=== PATIENT | male | born 1935 | race Caucasian/White ===

== ENCOUNTER → 2017-02-28 | Outpatient (CLI) | payer BC ==
[2016-10-04 14:11] VITALS: BP 118/68; PULSE 72
[~2017-02-28] MED LIST: ASPI325T39 PO; ASPI81TA28 PO; ATOR-26 PO; CALC500C70 PO; COD1000C PO; COEN150C PO; ESCI10TA17 PO; FINA5TAB PO; LPR25 PO; LVNIS40 SQ; LVQ750 PO; MULT-506 PO; OMEG10007 PO; PRLSR20 PO; RXC5 PO; SENN8.6T7 PO; TAMS0.4C38 PO; TAMS0.4C59 PO; VITA400C15 PO; VITA400C3 PO; ZINC30TA3 PO; ZOLP1TAB PO
[2017-02-28 13:39] VITALS: BP_SYST 125; BP_SYST 159; BP_DIAS 73; BP_DIAS 78; PULSE 68; TEMP 36.9; O2SAT 94
--- NOTE | 2017-02-28 15:10 | Radiation Oncology Procedure ---
Radiation Oncology Procedure Date of Procedure February 28, 2017. Procedure Nasopharyngolaryngoscopy Pre & Post Diagnosis Pre Procedure Diagnosis: Head / Neck Cancer (S/p Treatment) Post Procedure Diagnosis: Head / Neck Cancer (S/p Treatment) Procedure Note Consent Obtained: Verbal Procedure Time Out: side/site verified, patient ID confirmed, appropriate equipment obtained Performed By: Dr. Kathy Eisenberg M.D. Reliability Manager(s): Marbella Jansen PA-C Medication(s): Afrin/Topical Lidocaine Clinical Focus of Exam: nasopharynx, oropharynx, larynx Findings: Normal nasal cavity & sinuses, Normal nasopharynx, Normal oropharynx , Normal larynx Estimated Blood Loss: none Specimens: none Complications: none Time Spent: 15 minutes
--- NOTE | 2017-02-28 15:59 | Radiation Oncology Follow-Up ---
Radiation Oncology Follow-Up Date of Visit February 28, 2017. 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 Ferreira is a 81-year-old male who noted a lump in his right neck in the fall of 2014. This was slightly tender and was followed by palpation for several weeks. He ultimately presented to his PCP, Dr. Collin Iniguez for evaluation. He was seen on 08/26/2015. A 3 cm firm mobile mass was noted in the mid right neck along the sternocleidomastoid. No other adenopathy was appreciated. Patient was started on antibiotics and a CT scan of the head and neck region was ordered. On 09/01/2015 the patient underwent a neck CT scan. This revealed a heterogeneous 2.1 x 1.7 cm lymph node that abuts the right internal carotid artery and right internal jugular vein. The vertebral and common carotid arteries are patent. A 40% stenosis at the right carotid bulb was noted due to the calcified plaque. There was severe/critical stenosis within the left carotid bulb demonstrating greater than 90% stenosis. The remainder of the exam was unremarkable. Dr. Iniguez sent the patient for evaluation of his carotid artery stenosis to see Dr. Franklyn olivarez on 09/07/2015. He recommended additional staging procedures as well as a biopsy of the right neck node. On 09/08/2015 patient underwent a CTA. This redemonstrated the severe/critical stenosis within the proximal left internal carotid artery. Approximate 30-40% stenosis was noted within the right proximal internal carotid artery. There was no change in the heterogeneous 2.1 cm right jugulodigastric lymph node noted. Patient was sent for an FNA of the palpable right neck mass. This was performed on 09/13/2015. The tissue identified necrosis and variably necrotic squamous cells, highly suspicious for metastatic squamous cell carcinoma. AP 16 immunostain performed on a cytospin shows weak nuclear and cytoplasmic staining. Case: [id number]. This tissue was ultimately reviewed at [facility]. They noted suboptimal evaluation to lack of lymph node sampling. Abundant anucleated squamous cells and atypical squamous cells were present. These were felt to be consistent with a squamous cell carcinoma. Accession #: [id number]. It was recommended the patient undergo a repeat cardiac catheterization. His previous catheterization was 2006. And he underwent a stress echocardiography on 09/22/2015. This was ultimately performed and reported no change from his previous study. Patient underwent a PET CT scan on 09/28/2015. Patient was seen by Dr. Edmonds and evaluated. He recommended treatment for the left internal carotid stenosis prior to additional discussion of surgical options. He was therefore scheduled for a left carotid endarterectomy on 2014. He recommended waiting approximately 2 weeks prior to performing the panendoscopy this is been scheduled for , 11/17/2015. In the interim patient was evaluated by Dr. Clifford, Radiation Oncology at [place]. It was noted that presently the patient had a head and neck cancer of unknown primary that was the 16th positive. He pointed out that a likely origin is the right base of tongue and right tonsil. He indicated that this issue should be resolved once he is undergone panendoscopy. He discussed at length the use of definitive chemoradiation reviewing with the patient the anticipated treatment duration as well as a detailed discussion of potential risks and side effects of combined chemoradiation. He did discuss with the patient treatment at [place] as well as the alternative of receiving his treatment locally in [place]. The patient returned to see Dr. Ferreira on October 18 and was recovering well from his left carotid endarterectomy. Patient underwent a repeat CT soft tissue neck on 10/31/2015. This again identified in the patient' s right palpable neck abnormality consistent with an enlarged right jugulodigastric lymph node measuring 1.7 cm. This remained unchanged in size compared to the recent PET/CT scan. Mild nonspecific soft tissue asymmetry was noted within the left oropharynx at the level of the uvula. No corresponding abnormalities were identified in the recent PET/CT scan. As noted above he was scheduled to see Dr. Edmonds on 11/17/2015. The plan was to treat with combined chemotherapy and radiation. The patient started his treatment on 12/06/2015 and completed treatment on 02/09/2016. He did develop dysphagia requiring fentanyl patch. This did help the pain but unfortunately caused excessive side effects and this was stopped. The patient did require multiple treatment interruptions including a 2 week break from 01/18 through 02/01/2016. Overall the patient received 33 fractions with a daily dose of 212 cGy per fraction for a total dose of 69.96 G (Marbella Jansen PA-C) Interim History He is been doing well over the past 5 months his appetite is good. He has had a 9 pound weight gain. He does describe occasional choking episodes. This is happened on 2 occasions. Once when eating peanuts. The second time was in the morning when he first woke up. He does have a lot of dry thick secretions in the morning. He is using an herbal spray before bed which helps with his xerostomia. He uses this if he wakes up. He continues to have issues with the submental edema. He had gone to the lymphedema therapy clinic. He is also seen a specialist and had steroid injections to the area. This is currently stable. In the morning he will have thick phlegm. At times this can be a very dark color. He has not seen any karolyn blood in the sputum. He had rechecked imaging with CT scan in October at [place]. This showed post radiation changes Carranza next with no evidence of recurrent or residual mass. No lymphadenopathy. Postsurgical changes of the right carotid endarterectomy. (Marbella Jansen PA-C) Allergies Coded Allergies: Morphine (Verified Adverse Reaction, Mild, HEADACHE, 03/22/16) Home Medications Scheduled Aspirin (Aspirin Ec), 81 MG PO QAM Atorvastatin (Lipitor), 80 MG PO QAM Calcium/Vitamin D (Os-Kd 500 Plus D), 1 TAB PO QAM Cod Liver Oil (Cod Liver Oil 1000 mg), 1 CAP PO QAM Coenzyme Q10 (Ubidecarenone) (Co Q-10), 150 MG PO QAM Escitalopram (Lexapro), 10 MG PO QAM Finasteride (Proscar), 5 MG PO HS Fish Oil ([place]-3), 1 CAP PO QAM Multivitamin (Multivitamin), 1 TAB PO QAM Tamsulosin Hcl (Flomax), 0.4 MG PO HS Tocopheryl Acet,Dl-Alpha (Vitamin E), 400 INTER.UNIT PO QAM Zinc Gluconate (Zinc), 3 MG PO QAM Zolpidem Tartrate (Ambien Er), 6.25 MG PO HS Review of Systems Gastrointestinal: Symptoms: WNL Oral: Symptoms: No Problems, Scant Saliva/Dry Mouth Other Oral Symptoms: Intermittent "sore" on inside of left cheek that resolves spontaneously Respiratory: Symptoms: Dry Cough, Productive Cough Urinary: Symptoms: WNL Comments: On Proscar and Flomax Skin: Symptoms: No Problems Other Skin Symptoms: Dry skin on right facial cheek (Marbella Jansen PA-C) Physical Exam Vital Signs Date Time Temp Pulse Resp B/P Pulse Ox O2 Delivery O2 Flow Rate FiO2 02/28/17 13:39 36.9 68 20 159/78 94 125/73 Pain: Patient Pain Scale: 0 - 10 Initial Pain Intensity: 0.0 Fatigue: None General Appearance: no apparent distress Eyes: normal inspection, EOMI ENT: normal ENT inspection, hearing grossly normal, pharynx normal (there are no visible or palpable lesions of the tongue, floor the mouth, or buccal mucosa. ) Neck: supple, no adenopathy, + pertinent finding (mild submental edema) Respiratory/Chest: lungs clear, no respiratory distress, no accessory muscle use Cardiovascular: regular rate, rhythm, no gallop, no murmur Neurologic/Psychiatric: no motor/sensory deficits, alert, normal mood/affect Skin: warm/dry Lymphatic: no adenopathy (Marbella Jansen PA-C) Additional Studies CT scan evaluation as reviewed above performed on 11/07/2016. (Marbella Jansen PA-C) Assessment & Plan Plan: The patient was also seen and examined by Dr. Eisenberg today. He underwent an NPL examination. Please see Dr. Eisenberg's procedure note. I did recommend humidification of the air in his bedroom to help with dryness of the mouth at night and to help thin secretions in the morning. He'll continue with his herbal mild spray which is helping with the xerostomia at night. He'll be seeing Dr. Edmonds 03/07/2017. He'll also be following up with the physician who has given him injections to the submental area. We asked him to return to our office in 6 months. He may call if he has any questions or concerns in the interim. Knee described choking sensation may be related to the phlegm that he experiences especially in the morning. With hydration and humidification hopefully this will improve. (Marbella Jansen PA-C) I agree with note created by Marbella Jansen PA-C. I reviewed the patient's chart and information with her. I have examined and evaluated the patient. I reviewed relevant clinical information and answered the patient's and/or family' s questions. (Veeral. Eisenberg MD) Total Time In Follow-Up I spent 25 minutes speaking to the patient and performing examination. I spent 15 minutes reviewing information and completing this note. AK (Marbella Jansen PA-C) I spent 15 minutes examining and counseling the patient. (Veeral. Eisenberg MD) Copy To Uday Edmonds M.D.; Collin Iniguez M.D.
== END | disposition home or self-care (01) ==
LOC: C.ONC 13:29
PROVIDERS: ATTEND Physician Assistant Medical
DX: Z08 Encounter for follow-up examination after completed treatment for malignant neoplasm (principal); Z92.3 Personal history of irradiation; Z85.810 Personal history of malignant neoplasm of tongue

== ENCOUNTER → 2017-09-05 | Outpatient (CLI) | payer BC ==
[~2017-09-05] MED LIST changes: -LPR25 PO; -LVNIS40 SQ; -LVQ750 PO; -RXC5 PO; -SENN8.6T7 PO
[2017-09-05 13:44] VITALS: BP 134/78; PULSE 64; TEMP 36.8; O2SAT 93
--- NOTE | 2017-09-05 15:10 | Radiation Oncology Follow-Up ---
Radiation Oncology Follow-Up Date of Visit Sep 05, 2017. 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 Ferreira noted a lump in his right neck in the fall of 2014. This was slightly tender and was followed by palpation for several weeks. He ultimately presented to his PCP, Dr. Collin Iniguez for evaluation. He was seen on 2014. A 3 cm firm mobile mass was noted in the mid right neck along the sternocleidomastoid. No other adenopathy was appreciated. Patient was started on antibiotics and a CT scan of the head and neck region was ordered. On 2014 the patient underwent a neck CT scan. This revealed a heterogeneous 2.1 x 1.7 cm lymph node that abuts the right internal carotid artery and right internal jugular vein. The vertebral and common carotid arteries are patent. A 40% stenosis at the right carotid bulb was noted due to the calcified plaque. There was severe/critical stenosis within the left carotid bulb demonstrating greater than 90% stenosis. The remainder of the exam was unremarkable. Dr. Iniguez sent the patient for evaluation of his carotid artery stenosis to see Dr. Franklyn olivarez on 09/07/2015. He recommended additional staging procedures as well as a biopsy of the right neck node. On 09/08/2015 patient underwent a CTA. This redemonstrated the severe/critical stenosis within the proximal left internal carotid artery. Approximate 30-40% stenosis was noted within the right proximal internal carotid artery. There was no change in the heterogeneous 2.1 cm right jugulodigastric lymph node noted. Patient was sent for an FNA of the palpable right neck mass. This was performed on 09/13/2015. The tissue identified necrosis and variably necrotic squamous cells, highly suspicious for metastatic squamous cell carcinoma. AP 16 immunostain performed on a cytospin shows weak nuclear and cytoplasmic staining. Case: [id number]. This tissue was ultimately reviewed at [facility]. They noted suboptimal evaluation to lack of lymph node sampling. Abundant anucleated squamous cells and atypical squamous cells were present. These were felt to be consistent with a squamous cell carcinoma. Accession #: [id number]. It was recommended the patient undergo a repeat cardiac catheterization. His previous catheterization was 2006. And he underwent a stress echocardiography on 09/22/2015. This was ultimately performed and reported no change from his previous study. Patient underwent a PET CT scan on 09/28/2015. Patient was seen by Dr. Edmonds and evaluated. He recommended treatment for the left internal carotid stenosis prior to additional discussion of surgical options. He was therefore scheduled for a left carotid endarterectomy on 2014. He recommended waiting approximately 2 weeks prior to performing the panendoscopy this is been scheduled for , 11/17/2015. In the interim patient was evaluated by Dr. Clifford, Radiation Oncology at [place]. It was noted that presently the patient had a head and neck cancer of unknown primary that was the 16th positive. He pointed out that a likely origin is the right base of tongue and right tonsil. He indicated that this issue should be resolved once he is undergone panendoscopy. He discussed at length the use of definitive chemoradiation reviewing with the patient the anticipated treatment duration as well as a detailed discussion of potential risks and side effects of combined chemoradiation. He did discuss with the patient treatment at [place] as well as the alternative of receiving his treatment locally in [place]. The patient returned to see Dr. Ferreira on October 18 and was recovering well from his left carotid endarterectomy. Patient underwent a repeat CT soft tissue neck on 10/31/2015. This again identified in the patient' s right palpable neck abnormality consistent with an enlarged right jugulodigastric lymph node measuring 1.7 cm. This remained unchanged in size compared to the recent PET/CT scan. Mild nonspecific soft tissue asymmetry was noted within the left oropharynx at the level of the uvula. No corresponding abnormalities were identified in the recent PET/CT scan. As noted above he was scheduled to see Dr. Edmonds on 11/17/2015. The plan was to treat with combined chemotherapy and radiation. The patient started his treatment on 12/06/2015 and completed treatment on 02/09/2016. He did develop dysphagia requiring fentanyl patch. This did help the pain but unfortunately caused excessive side effects and this was stopped. The patient did require multiple treatment interruptions including a 2 week break from 01/18 through 02/01/2016. Overall the patient received 33 fractions with a daily dose of 212 cGy per fraction for a total dose of 69.96 G Interim History He is been doing well over the past 6 months. 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 He has noted that his mouth feels dry or night if he has had wine with his dinner. Drinking fluid does help. At our last visit we discussed running a humidifier. He did try running a humidifier in his bedroom. This did not make much of a difference in the xerostomia. He has seen Dr. Edmonds in follow-up and had [facility] examination in May. There've been no signs of recurrence. He is now seen plastic surgeon in regards to the submental edema. Surgeon is planning steroid injections to the submental area to help decrease edema. There has been discussion of possible surgery. Surgeon is fearful of healing issues in this area. He has had some skin changes and did see a retail wireless sales representative. He did cryotherapy to a few lesions. He was found to have some carotid stenosis on his last CAT scan. This was approximate 50%. He will follow with vascular surgery. They have been following the carotid arteries. His taste is stable. His appetite is good and weight is stable. Allergies Coded Allergies: Morphine (Verified Adverse Reaction, Mild, HEADACHE, 03/22/16) Home Medications Scheduled Aspirin (Aspirin Ec), 81 MG PO QAM Atorvastatin (Lipitor), 80 MG PO QAM Calcium/Vitamin D (Os-Kd 500 Plus D), 1 TAB PO QAM Cod Liver Oil (Cod Liver Oil 1000 mg), 1 CAP PO QAM Coenzyme Q10 (Ubidecarenone) (Co Q-10), 150 MG PO QAM Escitalopram (Lexapro), 10 MG PO QAM Finasteride (Proscar), 5 MG PO HS Fish Oil ([place]-3), 1 CAP PO QAM Multivitamin (Multivitamin), 1 TAB PO QAM Tamsulosin Hcl (Flomax), 0.4 MG PO HS Tocopheryl Acet,Dl-Alpha (Vitamin E), 400 INTER.UNIT PO QAM Zinc Gluconate (Zinc), 3 MG PO QAM Scheduled PRN Zolpidem Tartrate (Ambien Er), 6.25 MG PO HS PRN for Sleep Review of Systems Gastrointestinal: Symptoms: WNL Oral: Symptoms: No Problems, Scant Saliva/Dry Mouth Other Oral Symptoms: Dry mouth/throat mostly when sleeping Respiratory: Symptoms: WNL Urinary: Symptoms: WNL Skin: Symptoms: No Problems Physical Exam Vital Signs Date Time Temp Pulse Resp B/P (MAP) Pulse Ox O2 Delivery O2 Flow Rate FiO2 09/05/17 13:44 36.8 64 16 134/78 93 Fatigue: None General Appearance: no apparent distress Eyes: normal inspection, EOMI ENT: normal ENT inspection, hearing grossly normal, TMs normal, pharynx normal , + pertinent finding (there are no visible or palpable lesions of the tongue, buccal mucosa, floor the mouth, soft or hard palate.) Neck: supple, no adenopathy, thyroid normal, + pertinent finding (noted submental edema.) Respiratory/Chest: lungs clear, no respiratory distress, no accessory muscle use Cardiovascular: regular rate, rhythm, no gallop, no murmur Extremities: no pedal edema Neurologic/Psychiatric: no motor/sensory deficits, alert, normal mood/affect Skin: warm/dry Lymphatic: no adenopathy Pain Management Pain Management Plan The patient is having no pain. Laboratory Studies No laboratory studies are required for review currently. Additional Studies He had a CT of the neck 05/13/2017. This showed stable minimal residual thickening is seen in the right oral pharyngeal wall including the tonsillar fossa from posttreatment changes. No evidence of residual or recurrent tumor. No pathologic lymphadenopathy. Right carotid bifurcation atherosclerosis with approximately 50% stenosis of the internal carotid artery Assessment & Plan Plan: Continue regular follow-up with Dr. Edmonds and Dr. Iniguez. Recheck scanning per Dr. Edmonds. He has had recent NPL examination and that was therefore deferred today. He is going to follow with the plastic surgeon in regards to the submental edema. He will have a follow-up with the vascular surgeon in regards to the carotid stenosis. He was not in favor of any further lymphedema therapy. We asked him to return to our office in 1 year. He may call if he has any questions or concerns in the interim. Total Time In Follow-Up I spent 20 minutes speaking to the patient performing examination. I spent 15 minutes reviewing information and completing this note. Copy To Oscar Soto M.D.
== END | disposition home or self-care (01) ==
LOC: C.ONC 13:33
PROVIDERS: ATTEND Physician Assistant Medical
DX: Z08 Encounter for follow-up examination after completed treatment for malignant neoplasm (principal); Z92.3 Personal history of irradiation; Z85.810 Personal history of malignant neoplasm of tongue

== ENCOUNTER 2017-09-21 14:56 | Inpatient (IN) | payer BC, OTHER ==
[~2017-09-21] VITALS: Ht 175.3 cm; Wt 84.5 kg
[~2017-09-21 14:56] MED LIST changes: -ASPI325T39 PO; -PRLSR20 PO; -TAMS0.4C38 PO; -VITA400C3 PO
[2017-09-21] MEDS ORDERED: ONDANSETRON INJ 2 MG/ML 2 ML VIAL IV STA (15:10)
[2017-09-21] MEDS ORDERED: MoRPHine SULFATE 4 MG/ML 1 ML CARP\\VIAL IV STA (15:10)
--- NOTE | 2017-09-21 15:19 | EMERGENCY ROOM VISIT NOTE ---
History Report prepared by Azul: Svetlana Stubbs Under the Supervision of: Dr. Darius Banegas M.D. First contact with patient: 14:57 Stated Complaint: FALL History of Present Illness The patient is an 82 year old white male with a past medical history of bladder cancer and hyperlipidemia who presents to the ED with a cc of an episode of a fall occurring an hour ago. The patient states that he was cleaning out his gutters when he fell 4 ft off the ladder and onto his concrete driveway. He reports that he landed on his right side and states that he thinks he bounced. The patient states that it feels like his right leg is missing. Positive taking Aspirin. Negative hitting head, LOC, neck pain, and use of other blood thinners. Source of History: patient Onset: an hour ago Position: other (global) Quality: other ("Right leg is missing") Timing: other (episode) Associated Symptoms: No LOC, No neck pain Note: The patient denies hitting his head. Review of Systems See HPI for pertinent positives and negatives. A total of ten systems were reviewed and were otherwise negative. Past Medical & Surgical Medical Problems: (1) Bladder cancer (2) Cancer of base of tongue (3) Sepsis (4) SIRS (systemic inflammatory response syndrome) (5) UTI (urinary tract infection) Family History Diabetes mellitus Hypertension Social History Smoking Status: Never Smoker Alcohol Use: none Drug Use: none Marital Status: Housing Status: lives with family Occupation Status: employed Current/Historical Medications Scheduled Atorvastatin (Lipitor), 80 MG PO QAM Calcium/Vitamin D (Os-Kd 500 Plus D), 1 TAB PO QAM Cod Liver Oil (Cod Liver Oil 1000 mg), 1 CAP PO QAM Coenzyme Q10 (Ubidecarenone) (Co Q-10), 150 MG PO QAM Escitalopram (Lexapro), 10 MG PO QAM Finasteride (Proscar), 5 MG PO HS Fish Oil ([place]-3), 1 CAP PO QAM Multivitamin (Multivitamin), 1 TAB PO QAM Tamsulosin Hcl (Flomax), 0.4 MG PO HS Vitamin E (Vitamin E 400 Iu), 400 INTER.UNIT PO DAILY Zinc Gluconate (Zinc), 3 MG PO QAM Scheduled PRN Aspirin (Aspirin Ec), 325 MG PO DAILY PRN for PRN Zolpidem Tartrate (Ambien Er), 6.25 MG PO HS PRN for Sleep Allergies Coded Allergies: Morphine (Verified Adverse Reaction, Mild, HEADACHE, 03/22/16) Physical Exam Vital Signs Date Time Temp Pulse Resp B/P (MAP) Pulse Ox O2 Delivery O2 Flow Rate FiO2 09/21/17 18:06 36.7 90 18 103/62 90 Room Air 09/21/17 17:21 87 20 154/78 95 Room Air 09/21/17 16:06 75 09/21/17 15:41 95 Room Air 09/21/17 15:41 36.7 71 18 157/88 95 Room Air 09/21/17 15:05 36.4 76 18 145/75 95 Room Air Physical Exam GENERAL: Awake, alert, well-appearing, NAD HENT: Normocephalic, atraumatic. NCAT for head. No facial pain. No bruising. EYES: Normal conjunctiva. Sclera non-icteric. NECK: Supple. No nuchal rigidity. FROM. No midline c spine tenderness. RESPIRATORY: CTAB, no rhonchi, wheezing, crackles CARDIAC: RRR, no MRG ABDOMEN: Soft, NTND, BS+ MSK: No chest wall TTP, no LE edema, no reproducible chest wall, back, abdomen, upper extremity, and left lower extremity deformity, pain or ecchymosis. Right lower extremity has obvious deformity and bulge of the proximal thigh with associated pain. NDI intact distally. SP/DP/Tib nerves. DP pulse present. NEURO: GCS 15, CN 2-12 intact, moves all 4s on command SKIN: No rash or jaundice noted. Medical Decision & Procedures ER Provider Diagnostic Interpretation: Radiology results as stated below per my review and radiologist interpretation: CHEST ONE VIEW PORTABLE HISTORY: 82 years-old Male Trauma acute chest trauma COMPARISON: Chest radiographs 05/08/2016 TECHNIQUE: Portable AP view of the chest FINDINGS: Cardiac silhouette is mildly enlarged, unchanged. Atherosclerosis of the aorta. No pneumothorax, pleural effusion, focal airspace consolidation or overt pulmonary edema. Bones of the chest appear grossly intact. No acute rib fracture identified. IMPRESSION: 1. No acute cardiopulmonary process. 2. No acute rib fracture identified. The above report was generated using voice recognition software. It may contain grammatical, syntax or spelling errors. Electronically signed by: Jun Rivas M.D. 09/21/2017 4:07 PM Dictated Date/Time: 09/21/2017 4:05 PM PELVIS 1 OR 2 VIEW ROUTINE, R FEMUR 2 VIEWS ROUTINE HISTORY: 82 years-old Male Fall, Hip pain acute right hip pain status post fall COMPARISON: Acute abdominal series radiographs 01/27/2016 TECHNIQUE: Single AP view the pelvis with 2 views of the right femur FINDINGS: PELVIS: Degenerative changes are seen within the lower lumbar spine, SI joints and pubic symphysis. Moderate degenerative changes of the bilateral femoral acetabular joints. Vascular calcifications noted. FEMUR: There is acute oblique fracture of the proximal subtrochanteric femur with possible subtle fractures also present within the greater trochanter. The lesser trochanter and intertrochanteric femur appear intact. Subtrochanteric fracture demonstrates mild apex medial angulation of 7 degrees, 1.8 cm lateral displacement and 2.5 cm foreshortening. Moderate associated soft tissue swelling. IMPRESSION: 1. Acute oblique mildly angulated, displaced and foreshortened subtrochanteric fracture of the right femur. On the AP view of the pelvis, there is questioned nondisplaced fracture of the right greater trochanter as well. 2. No acute pelvic ring fracture. The above report was generated using voice recognition software. It may contain grammatical, syntax or spelling errors. Electronically signed by: Jun Rivas M.D. 09/21/2017 3:56 PM Dictated Date/Time: 09/21/2017 3:52 PM Laboratory Results 09/21/17 15:10 Red Blood Count 4.49, Mean Corpuscular Volume 93.1, Mean Corpuscular Hemoglobin 32.1, Mean Corpuscular Hemoglobin Concent 34.4, Mean Platelet Volume 9.6, Neutrophils (%) (Auto) 67.8, Lymphocytes (%) (Auto) 18.6, Monocytes (%) (Auto) 10.2, Eosinophils (%) (Auto) 2.8, Basophils (%) (Auto) 0.2, Neutrophils # (Auto ) 3.38, Lymphocytes # (Auto) 0.93, Monocytes # (Auto) 0.51, Eosinophils # (Auto ) 0.14, Basophils # (Auto) 0.01 09/21/17 15:10 Test 09/21/17 15:10 09/21/17 15:40 White Blood Count 4.99 K/uL (4.8-10.8) Red Blood Count 4.49 M/uL (4.7-6.1) Hemoglobin 14.4 g/dL (14.0-18.0) Hematocrit 41.8 % (42-52) Mean Corpuscular Volume 93.1 fL (80-100) Mean Corpuscular Hemoglobin 32.1 pg (25-34) Mean Corpuscular Hemoglobin Concent 34.4 g/dl (32-36) Platelet Count 172 K/uL (130-400) Mean Platelet Volume 9.6 fL (7.4-10.4) Neutrophils (%) (Auto) 67.8 % Lymphocytes (%) (Auto) 18.6 % Monocytes (%) (Auto) 10.2 % Eosinophils (%) (Auto) 2.8 % Basophils (%) (Auto) 0.2 % Neutrophils # (Auto) 3.38 K/uL (1.4-6.5) Lymphocytes # (Auto) 0.93 K/uL (1.2-3.4) Monocytes # (Auto) 0.51 K/uL (0.11-0.59) Eosinophils # (Auto) 0.14 K/uL (0-0.5) Basophils # (Auto) 0.01 K/uL (0-0.2) RDW Standard Deviation 41.2 fL (36.4-46.3) RDW Coefficient of Variation 12.2 % (11.5-14.5) Immature Granulocyte % (Auto) 0.4 % Immature Granulocyte # (Auto) 0.02 K/uL (0.00-0.02) Anion Gap 7.0 mmol/L (3-11) Est Creatinine Clear Calc Drug Dose 65.1 ml/min Estimated GFR () 92.9 Estimated GFR (Non- 80.2 BUN/Creatinine Ratio 29.3 (10-20) Calcium Level 8.9 mg/dl (8.5-10.1) Prothrombin Time 11.0 SECONDS (9.0-12.0) Prothromb Time International Ratio 1.0 (0.9-1.1) Activated Partial Thromboplast Time 20.5 SECONDS (21.0-31.0) Partial Thromboplastin Ratio 0.8 Laboratory results reviewed by me Medications Administered Medications (Trade) Dose Ordered Sig/Dinah Route Start Time Stop Time Status Last Admin Dose Admin Ondansetron HCl (Zofran Inj) 4 mg NOW STAT IV 09/21/17 15:10 09/21/17 15:13 DC 09/21/17 15:40 4 MG Morphine Sulfate (MoRPHine SULFATE INJ) 4 mg NOW STAT IV 09/21/17 15:10 09/21/17 15:13 DC 09/21/17 15:40 4 MG Hydromorphone HCl (Dilaudid Inj) 1 mg NOW STAT IV 09/21/17 16:22 09/21/17 16:23 DC 09/21/17 16:39 1 MG Hydromorphone HCl (Dilaudid Inj) 1 mg NOW STAT IV 09/21/17 17:48 09/21/17 17:50 DC 09/21/17 18:03 1 MG Acetaminophen/ Hydrocodone Bitart (Wiggins 10/325 Tab) 1 tab ONE STAT PO 09/21/17 17:48 09/21/17 17:50 DC 09/21/17 18:02 1 TAB Tramadol HCl (Ultram Tab) 25 mg NOW STAT PO 09/21/17 17:48 09/21/17 17:50 DC 09/21/17 18:02 25 MG ECG Indication: other (fall) Rate (beats per minute): 70 Rhythm: normal sinus Findings: T-wave inversion (lateral and highlateral leads), other (normal axis , normal intervals, no other STS or TWI) Comparison ECG Date: January 22, 2016 Change: T wave inversions are new. ED Course 1504: The patient was evaluated in room B12B. A complete history and physical exam was performed. 1556: I reevaluated the patient and he is doing well. 1627: Discussed the patient's case with Dr. Pichardo - Orthopedics. He states that the patient should be admitted to medicine and then he will operate tomorrow. 1643: Discussed the patient's case with Dr. Silvestre. The patient will be evaluated for further treatment and disposition. 1731: I reevaluated the patient and he is still in pain. Medical Decision The patient is an 82 year old white male with a past medical history of bladder cancer and hyperlipidemia who presents to the ED with a cc of an episode of a fall occurring an hour ago. Etiologies such as fracture, dislocation, neurovascular compromise, compartment syndrome, soft tissue injury, as well as others were entertained. Patient was seen and evaluated the bedside. Patient states that occasionally will take a full aspirin but does not take 1-2 days. Patient was up on a ladder approximate 2-3 feet trying to clean his gutters when he fell off and landed on his right side. Patient has complaints of some right lower extremity pain. Patient is notably shortened externally rotated. He is an obvious deformity of the proximal thigh. This is likely femur fracture. Consideration is a possible dislocation. Patient last ate around noon. Patient has a closed injury is otherwise neuro intact distally. DP pulses present. Patient does not have any headache neck pain chest abdomen back or other extremity pain. Patient is no other obvious signs of trauma. Patient did have blood work, EKG, coags, and plain films completed. Patient's blood work fairly unremarkable. Patient's EKG did show T-wave inversions in the lateral and high lateral leads. These are new compared to old EKG. Patient denies CP or SOB. Patient's plain films do show that the patient is have a subtrochanteric oblique fracture with some mild shortening. I did talk with the on-call orthopedist stated he would likely perform operative fixation tomorrow. Patient was made nothing by mouth at midnight. Patient was given pain medications. I did discuss case with the hospitalist agreed to admit the patient. Medication Reconcilliation Current Medication List: was personally reviewed by me Blood Pressure Screening Patient's blood pressure: Elevated blood pressure Blood pressure disposition: Elevated BP felt to be situational Consults Time Called: 1625 Consulting Physician: Dr. Marino Flores Orthopedicrocky Returned Call: 1626 Discussed the patient's case with Dr. Marino Stiles. He states that the patient should be admitted to medicine and then he will operate tomorrow. Additional Consults: Time Called: 1635 Consulted Physician: Dr. Silvestre Returned Call: [phone] Additional Comments: Discussed the patient's case with Dr. Silvestre. The patient will be evaluated for further treatment and disposition. Impression Primary Impression: Fall Additional Impressions: Femur fracture, right Nonspecific ST-T wave electrocardiographic changes Scribe Attestation The scribe's documentation has been prepared under my direction and personally reviewed by me in its entirety. I confirm that the note above accurately reflects all work, treatment, procedures, and medical decision making performed by me. Departure Information Dispostion Being Evaluated By Hospitalist Referrals Collin Iniguez M.D. (PCP) Problem Qualifiers Primary Impression: Fall Encounter type: initial encounter Qualified Codes: W19.XXXA - Unspecified fall, initial encounter Additional Impressions: Femur fracture, right Encounter type: initial encounter Femur location: subtrochanteric Fracture type: closed Fracture alignment: displaced Qualified Codes: S72.21XA - Displaced subtrochanteric fracture of right femur, initial encounter for closed fracture
[2017-09-21 15:22] LABS: BASO % 0.2 %; BASO ABS # 0.01 K/uL (0-0.2); COMPLETE YES; EOS % 2.8 %; HEMATOCRIT 41.8 % (42-52); IG% 0.4 %; LYMPH % 18.6 %; LYMPH ABS # 0.93 K/uL (1.2-3.4); MEAN CELL VOLUME 93.1 fL (80-100); MEAN CORPUSCULAR HEMOGLOBIN 32.1 pg (25-34); MEAN CORPUSCULAR HGB CONC 34.4 g/dl (32-36); MEAN PLATELET VOLUME 9.6 fL (7.4-10.4); MONO % 10.2 %; NEUT % 67.8 %; PLATELET COUNT 172 K/uL (130-400); RED BLOOD COUNT 4.49 M/uL (4.7-6.1); WHITE BLOOD COUNT 4.99 K/uL (4.8-10.8)
[2017-09-21 15:41] LABS: BUN/CREATININE RATIO 29.3 (10-20); CALCIUM 8.9 mg/dl (8.5-10.1); CREATININE 0.89 mg/dl (0.60-1.40); POTASSIUM 3.9 mmol/L (3.5-5.1)
--- NOTE | 2017-09-21 15:58 | DIAGNOSTIC IMAGING REPORT ---
PELVIS 1 OR 2 VIEW ROUTINE, R FEMUR 2 VIEWS ROUTINE HISTORY: 82 years-old Male Fall, Hip pain acute right hip pain status post fall COMPARISON: Acute abdominal series radiographs 01/27/2016 TECHNIQUE: Single AP view the pelvis with 2 views of the right femur FINDINGS: PELVIS: Degenerative changes are seen within the lower lumbar spine, SI joints and pubic symphysis. Moderate degenerative changes of the bilateral femoral acetabular joints. Vascular calcifications noted. FEMUR: There is acute oblique fracture of the proximal subtrochanteric femur with possible subtle fractures also present within the greater trochanter. The lesser trochanter and intertrochanteric femur appear intact. Subtrochanteric fracture demonstrates mild apex medial angulation of 7 degrees, 1.8 cm lateral displacement and 2.5 cm foreshortening. Moderate associated soft tissue swelling. IMPRESSION: 1. Acute oblique mildly angulated, displaced and foreshortened subtrochanteric fracture of the right femur. On the AP view of the pelvis, there is questioned nondisplaced fracture of the right greater trochanter as well. 2. No acute pelvic ring fracture. The above report was generated using voice recognition software. It may contain grammatical, syntax or spelling errors. Electronically signed by: Jun Rivas M.D. 09/21/2017 3:56 PM Dictated Date/Time: 09/21/2017 3:52 PM
--- NOTE | 2017-09-21 16:08 | DIAGNOSTIC IMAGING REPORT ---
CHEST ONE VIEW PORTABLE HISTORY: 82 years-old Male Trauma acute chest trauma COMPARISON: Chest radiographs 05/08/2016 TECHNIQUE: Portable AP view of the chest FINDINGS: Cardiac silhouette is mildly enlarged, unchanged. Atherosclerosis of the aorta. No pneumothorax, pleural effusion, focal airspace consolidation or overt pulmonary edema. Bones of the chest appear grossly intact. No acute rib fracture identified. IMPRESSION: 1. No acute cardiopulmonary process. 2. No acute rib fracture identified. The above report was generated using voice recognition software. It may contain grammatical, syntax or spelling errors. Electronically signed by: Jun Rivas M.D. 09/21/2017 4:07 PM Dictated Date/Time: 09/21/2017 4:05 PM
[2017-09-21] MEDS ORDERED: HYDROmorphone INJ 1 MG/ML SYR IV STA ×2 (16:22→17:48)
[2017-09-21 16:41] LABS: PARTIAL THROMBOPLASTIN RATIO 0.8
[2017-09-21] MEDS ORDERED: TAMS0.4C38 PO (16:44)
[2017-09-21] MEDS ORDERED: VITA400C3 PO (16:44)
[2017-09-21] MEDS ORDERED: ASPI325T39 PO (16:46)
[2017-09-21] MEDS ORDERED: TRAMADOL HCL 50 MG TAB PO STA (17:48)
[2017-09-21] MEDS ORDERED: HYDROCODONE/ACETAMI 10/325 TAB PO STA (17:48)
[2017-09-21] MEDS ORDERED: BISACODYL 10 MG SUPP PR PRN (19:45)
[2017-09-21] MEDS ORDERED: NALOXONE HCL 0.4 MG/1 ML VIAL/CARP IV PRN (19:45)
[2017-09-21] MEDS ORDERED: OXYCODONE HCL IR 5 MG TAB (IMMEDIATE RELEASE) PO PRN ×2 (19:45)
[2017-09-21] MEDS ORDERED: SOD PHOSPHATE/SOD BIPHOSPHATE ENEMA 132 ML BTL PR PRN (19:45)
[2017-09-21] MEDS ORDERED: MAGNESIUM HYDROXIDE SUSP 30 ML UDC PO PRN ×2 (19:45→20:00)
[2017-09-21] MEDS ORDERED: HYDROmorphone INJ 0.5 MG/0.5 ML SYR IV PRN (19:45)
[2017-09-21] MEDS ORDERED: POLYETHYLENE (MIRALAX) 17 GM PACK PO PRN ×2 (19:45→21:15)
[2017-09-21] MEDS ORDERED: ZOLPIDEM TARTRATE 6.25 MG PO PRN (20:00)
[2017-09-21] MEDS ORDERED: ONDANSETRON INJ 2 MG/ML 2 ML VIAL IV PRN (20:00)
[2017-09-21] MEDS ORDERED: ALUMINUM/MAGNESIUM/SIMETH (MAALOX MAX) 30 ML UDC PO PRN (20:00)
[2017-09-21 20:50] VITALS: BP 154/70; TEMP 36.8; Ht 175.3 cm; Wt 84.5 kg
[2017-09-21 20:53] VITALS: BP 154/70; PULSE 73; TEMP 36.8; O2SAT 94
--- NOTE | 2017-09-21 21:04 | History and Physical ---
History & Physical Date & Time of Service: Sep 21, 2017 at 21:04 Chief Complaint: Fracture Of Right Hip Requiring Operative Repair Primary Care Physician: Collin Iniguez M.D. History of Present Illness Source: patient, family, hospital records This is an 82 yo m with a history of KS/ CAD/ BPH that is presenting to us after a fall and suffering from a right hip fracture. The patient was working on a 6 foot ladder when he lost balance and fell from approx 3 feet. He landed on his right side and unsure if his elbow or his hip had hit first. The patient states that he immediately had 10/10 non radiating pain in his right hip and was unable to ambulate or move his left secondary to pain. He was evaluated in the ED and found to have an acute oblique mildly angulated, displaced and foreshortened subtrochanteric fracture of the right femur. Ortho was consult and plan for surgery in the am. The patient does have a history of KS and patient was to undergo a carotid endarterectomy in Sep 2016. Prior to this procedure the patient underwent a cardiac cath in [place] and was cleared for surgery. 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 Status post left carotid endarterectomy Status post biopsy of the base of the tongue revealing squamous cell carcinoma 11/17/2015 T2 N1 M0 Status post completion of combined radiation and chemotherapy Radiation completed 02/09/2016 received 6996 cGy Status: Resolved Family History Diabetes mellitus Hypertension Social History Smoking Status: Never Smoker Smokeless Tobacco Use: No Alcohol Use: none Drug Use: none Marital Status: Housing status: lives with significant other Occupational Status: employed Immunizations History of Influenza Vaccine: Yes Influenza Vaccine Date: Jul 21, 2015 History of Tetanus Vaccine?: Yes Tetanus Immunization Date: Jun 06, 2011 History of Pneumococcal: Yes Pneumococcal Date: Oct 21, 2014 History of Hepatitis B Vaccine: Unknown Multi-Drug Resistant Organisms History of MDRO: No Allergies Coded Allergies: Morphine (Verified Adverse Reaction, Mild, HEADACHE, 03/22/16) Home Medications Scheduled Atorvastatin (Lipitor), 80 MG PO QAM Calcium/Vitamin D (Os-Kd 500 Plus D), 1 TAB PO QAM Cod Liver Oil (Cod Liver Oil 1000 mg), 1 CAP PO QAM Coenzyme Q10 (Ubidecarenone) (Co Q-10), 150 MG PO QAM Escitalopram (Lexapro), 10 MG PO QAM Finasteride (Proscar), 5 MG PO HS Fish Oil (Elcho-3), 1 CAP PO QAM Multivitamin (Multivitamin), 1 TAB PO QAM Tamsulosin Hcl (Flomax), 0.4 MG PO HS Vitamin E (Vitamin E 400 Iu), 400 INTER.UNIT PO DAILY Zinc Gluconate (Zinc), 3 MG PO QAM Scheduled PRN Aspirin (Aspirin Ec), 325 MG PO DAILY PRN for PRN Zolpidem Tartrate (Ambien Er), 6.25 MG PO HS PRN for Sleep Review of Systems Constitutional: No fever, No chills, No sweats, No weight loss, No weakness Eyes: No worsening of vision ENT: No hearing loss Respiratory: No cough, No sputum, No wheezing, No shortness of breath, No dyspnea on exertion, No dyspnea at rest Cardiovascular: No chest pain Abdomen: No pain, No nausea, No vomiting, No diarrhea, No constipation Musculoskeletal: + joint pain, + muscle pain, + swelling Genitourinary - Male: No hematuria, No dysuria Neurologic: + balance problems, No weakness, No numbness/tingling Psychiatric: No depression symptoms Endocrine: No fatigue Integumentary: No rash Physical Exam Vital Signs Date Time Temp Pulse Resp B/P (MAP) Pulse Ox O2 Delivery O2 Flow Rate FiO2 09/21/17 20:53 36.8 73 17 154/70 (98) 94 Room Air 09/21/17 20:17 89 18 101/67 95 09/21/17 20:11 89 18 101/67 95 Room Air 09/21/17 18:06 36.7 90 18 103/62 90 Room Air 09/21/17 17:21 87 20 154/78 95 Room Air 12/2/17 16:06 75 09/21/17 15:41 95 Room Air 09/21/17 15:41 36.7 71 18 157/88 95 Room Air 09/21/17 15:05 36.4 76 18 145/75 95 Room Air General Appearance: no apparent distress Head: normocephalic, atraumatic Eyes: normal inspection ENT: normal ENT inspection Neck: supple Respiratory/Chest: normal breath sounds, no respiratory distress, no accessory muscle use Cardiovascular: regular rate, rhythm, no murmur, normal peripheral pulses Abdomen/GI: normal bowel sounds, non tender, soft Back: normal inspection, no CVA tenderness Extremities/Musculoskelatal: no calf tenderness, no pedal edema, normal range of motion, + pertinent finding (neurovascularly intact LE, visible deformity on the right hip without noteable ecchymosis or erythema , right leg is externally rotated) Neurologic/Psych: alert, normal mood/affect, oriented x 3 Skin: normal color, warm/dry, no rash Lymphatic: no adenopathy Diagnostics Laboratory Results Results Past 24 Hours Test 09/21/17 15:10 09/21/17 15:40 Range/Units White Blood Count 4.99 4.8-10.8 K/uL Red Blood Count 4.49 4.7-6.1 M/uL Hemoglobin 14.4 14.0-18.0 g/dL Hematocrit 41.8 42-52 % Mean Corpuscular Volume 93.1 80-100 fL Mean Corpuscular Hemoglobin 32.1 25-34 pg Mean Corpuscular Hemoglobin Concent 34.4 32-36 g/dl Platelet Count 172 130-400 K/uL Mean Platelet Volume 9.6 7.4-10.4 fL Neutrophils (%) (Auto) 67.8 % Lymphocytes (%) (Auto) 18.6 % Monocytes (%) (Auto) 10.2 % Eosinophils (%) (Auto) 2.8 % Basophils (%) (Auto) 0.2 % Neutrophils # (Auto) 3.38 1.4-6.5 K/uL Lymphocytes # (Auto) 0.93 1.2-3.4 K/uL Monocytes # (Auto) 0.51 0.11-0.59 K/uL Eosinophils # (Auto) 0.14 0-0.5 K/uL Basophils # (Auto) 0.01 0-0.2 K/uL RDW Standard Deviation 41.2 36.4-46.3 fL RDW Coefficient of Variation 12.2 11.5-14.5 % Immature Granulocyte % (Auto) 0.4 % Immature Granulocyte # (Auto) 0.02 0.00-0.02 K/uL Sodium Level 138 136-145 mmol/L Potassium Level 3.9 3.5-5.1 mmol/L Chloride Level 103 98-107 mmol/L Carbon Dioxide Level 28 21-32 mmol/L Anion Gap 7.0 3-11 mmol/L Blood Urea Nitrogen 26 7-18 mg/dl Creatinine 0.89 0.60-1.40 mg/dl Est Creatinine Clear Calc Drug Dose 65.1 ml/min Estimated GFR () 92.9 Estimated GFR (Non- 80.2 BUN/Creatinine Ratio 29.3 10-20 Random Glucose 148 70-99 mg/dl Calcium Level 8.9 8.5-10.1 mg/dl Prothrombin Time 11.0 9.0-12.0 SECONDS Prothromb Time International Ratio 1.0 0.9-1.1 Activated Partial Thromboplast Time 20.5 21.0-31.0 SECONDS Partial Thromboplastin Ratio 0.8 Microbiology Results 09/21/17 MRSA DNA Surveillance Screen, Received Pending Diagnostic Radiology CHEST ONE VIEW PORTABLE HISTORY: 82 years-old Male Trauma acute chest trauma COMPARISON: Chest radiographs 05/08/2016 TECHNIQUE: Portable AP view of the chest FINDINGS: Cardiac silhouette is mildly enlarged, unchanged. Atherosclerosis of the aorta. No pneumothorax, pleural effusion, focal airspace consolidation or overt pulmonary edema. Bones of the chest appear grossly intact. No acute rib fracture identified. IMPRESSION: 1. No acute cardiopulmonary process. 2. No acute rib fracture identified. PELVIS 1 OR 2 VIEW ROUTINE, R FEMUR 2 VIEWS ROUTINE HISTORY: 82 years-old Male Fall, Hip pain acute right hip pain status post fall COMPARISON: Acute abdominal series radiographs 01/27/2016 TECHNIQUE: Single AP view the pelvis with 2 views of the right femur FINDINGS: PELVIS: Degenerative changes are seen within the lower lumbar spine, SI joints and pubic symphysis. Moderate degenerative changes of the bilateral femoral acetabular joints. Vascular calcifications noted. FEMUR: There is acute oblique fracture of the proximal subtrochanteric femur with possible subtle fractures also present within the greater trochanter. The lesser trochanter and intertrochanteric femur appear intact. Subtrochanteric fracture demonstrates mild apex medial angulation of 7 degrees, 1.8 cm lateral displacement and 2.5 cm foreshortening. Moderate associated soft tissue swelling. IMPRESSION: 1. Acute oblique mildly angulated, displaced and foreshortened subtrochanteric fracture of the right femur. On the AP view of the pelvis, there is questioned nondisplaced fracture of the right greater trochanter as well. 2. No acute pelvic ring fracture. Impression Assessment and Plan This is an 82 yo m with a history of KS/ CAD that is suffering from a right hip fracture Right subtrochanteric hip fracture - admission to med surg - ortho is consulted - RCRI is 0.9% and patient had had a cardiac cath in < 5 years. patient is an acceptable risk for surgery - pain control with oxycodone for PO and Dilaudid for IV option - IV NSS @ 75cc/h - NPO except meds CAD/ [place] / Hyperlipidemia - continue Atorvastatin 80 mg daily BPH - continue Flomax 0.4 mg Depression - continue lexapro 10 mg DVT Prophylaxis scd Attending Addendum: I have physically seen and examined this patient, have directed the resident's medical activities, and agree with the H&P as noted above with the following exceptions as noted. The patient is awake, alert and oriented 3, well-developed and well-nourished , normocephalic and atraumatic, lying in bed and in no acute distress. HEENT--PERRL, EOMI, mucous membranes and oropharynx normal. Neck--supple, no JVD or bruits, thyroid normal, trachea midline, no adenopathy. Heart--normal S1 and S2, no extra beats, no murmurs, rubs or gallops. Lungs--clear bilaterally with good air movement, no respiratory distress, no accessory muscle use. Abdomen--normal bowel sounds and soft, nontender and nondistended, no hernias or masses, no organomegaly. Extremities--no cyanosis, clubbing or edema. There are good distal pulses b/l. Dermatologic--normal skin turgor, normal color, warm and dry, no abnormal lymph nodes, no rash. Neurologic--cranial nerves II through XII grossly intact. Rheumatologic--right hip pain reproducible Psychiatric--normal affect. Assessment and Plan: Subtrochanteric right hip fracture-- Admitted to medical surgical floor Nothing by mouth NSS at 75 ML's per hour Morphine IV for pain when necessary Orthopedic consult Acceptable risk for surgery CAD/KS/hyperlipidemia-- Continue atorvastatin 80 mg by mouth daily. Hold fish oil. BPH-- Continue Flomax 0.4 mg by mouth at bedtime and finasteride 5 mg by mouth daily Depression-- Continue Lexapro 10 mg daily Level of Care Med/Surg Advanced Directives Existing Advance Directive: No Existing Living Will: No Existing Power of Painter Decorator: No Resuscitation Status FULL RESUSCITATION VTE Prophylaxis VTE Risk Assessment Done? Y/N: Yes Risk Level: Moderate Given or contraindicated: SCD's Social Service Consult None Apply Note Total Time: Critical Care 30 - 74 minutes Additional Copies To Myles Iniguez M.D.
[2017-09-21] MEDS: TAMSULOSIN HCL 0.4 MG CAP PO SCH (21:57)
[2017-09-21] MEDS: FINASTERIDE 5 MG TAB PO SCH (21:57)
[2017-09-21] MEDS: DOCUSATE SODIUM/SENNA 50/8.6MG TAB PO SCH (21:58)
[2017-09-21] MEDS: SODIUM CHLORIDE 0.9% 1000ML 1,000 ML IV SCH (21:59)
[2017-09-21] MEDS: HYDROmorphone INJ 0.5 MG/0.5 ML SYR IV PRN (22:06)
--- NOTE | 2017-09-21 22:41 | ORTHOPEDIC CONSULTATION ---
DATE OF CONSULTATION: 09/21/2017 CHIEF COMPLAINT: Right subtrochanteric hip fracture. HISTORY OF PRESENT ILLNESS: Dm is a pleasant 82-year-old male who lives in a house with his . He is a community ambulator without assistance. He was up on a ladder cleaning his gutters with a blower. He then fell off the ladder directly on to his right hip. He had immediate pain. He was brought to the Emergency Room where radiographs demonstrated a subtrochanteric fracture of the right hip. He was admitted to the medical service and orthopedics was consulted for evaluation and definitive treatment. PAST MEDICAL HISTORY: Significant for bladder cancer, history of cancer of the base of the tongue, hyperlipidemia. MEDICATIONS: Include Lipitor 80 mg daily, Lexapro 10 mg daily, Proscar 5 mg at night, Flomax 0.4 mg daily, [id number] supplements, aspirin 325 mg daily as needed and Ambien 6.25 mg as needed for sleep. FAMILY HISTORY: Significant for diabetes, hypertension. SOCIAL HISTORY: He is and lives with his family. He is currently employed. REVIEW OF SYSTEMS: He complains of right hip pain. All other pertinent review of systems are negative. PHYSICAL EXAMINATION: GENERAL: He is awake, alert and oriented x3. He is in no apparent distress. HEENT: Pupils are equal, round and reactive to light. Extraocular motion intact. Oral mucosa is pink and moist. HEART: Regular rate per radial pulse. LUNGS: Keeley symmetrically bilaterally with no audible breath sounds. ABDOMEN: Soft, nontender, nondistended. MUSCULOSKELETAL: On physical examination of the right leg, he is sitting with his hip flexed to 20 degrees and his knee flexed at 30 degrees. He is externally rotated. He has active dorsiflexion and plantarflexion of his right ankle. Sensation is intact throughout. He has a lot of pain with log roll of the right leg. There is a gross deformity at the proximal femur. There is no punctured of the skin. IMAGING: X-rays of the right proximal femur do show a subtrochanteric right femur fracture, it is a long oblique fracture with moderate displacement. IMPRESSION: Displaced subtrochanteric femur fracture. PLAN: He is being admitted to the hospitalist service. If he is medically stable, I would like to take him to the operating room tomorrow for intramedullary nail fixation. I did discuss this with him and his at bedside and he would like to proceed. We will await medical clearance and then likely proceed tomorrow. He should be n.p.o. past midnight tonight.
[2017-09-21 23:04] VITALS: BP 127/72; PULSE 89; TEMP 36.6; O2SAT 93
[2017-09-22] VITALS (11 sets, daily range): BP systolic 99–130; BP diastolic 60–74; PULSE 69–103; TEMP 36.9–37.4; O2SAT 76–97
[2017-09-22] MEDS: ZOLPIDEM TARTRATE 5 MG TAB PO PRN
[2017-09-22] MEDS: HYDROmorphone INJ 0.5 MG/0.5 ML SYR IV PRN ×6 (05:37→10:35)
[2017-09-22] MEDS ORDERED: CEFAZOLIN IV 2,000 MG in DEXTROSE 5% 50ML 50 ML IV SCH (06:00)
[2017-09-22] MEDS ORDERED: CEFAZOLIN 2000MG IV PUSH 10 ML IV SCH (06:00)
[2017-09-22] MEDS ORDERED: COD LIVER OIL PO SCH (09:00)
[2017-09-22] MEDS: MULTIVITAMIN TAB PO SCH ×2 (09:00→11:45)
[2017-09-22] MEDS: CALCIUM 600MG + VIT D 400 IU TAB PO SCH ×2 (09:00→11:41)
[2017-09-22] MEDS ORDERED: COENZYME Q10 150 MG PO SCH (09:00)
[2017-09-22] MEDS: ESCITALOPRAM OXALATE 10 MG TAB PO SCH ×2 (09:00→11:44)
[2017-09-22] MEDS: TOCOPHERYL, DL-ALPHA 400 INTER.UNIT CAP PO SCH ×2 (09:00→11:41)
[2017-09-22] MEDS: ATORVASTATIN 40 MG TAB PO SCH ×2 (09:00→11:42)
[2017-09-22] MEDS ORDERED: ZINC GLUCONATE PO SCH (09:00)
[2017-09-22] MEDS ORDERED: OMEGA-3 (PURIFIED FISH OIL) 1 GM CAP PO SCH (09:00)
[2017-09-22 09:03] LABS: BUN/CREATININE RATIO 36.4 (10-20); CALCIUM 8.8 mg/dl (8.5-10.1); CREATININE 0.85 mg/dl (0.60-1.40); MAGNESIUM 1.7 mg/dl (1.8-2.4); POTASSIUM 4.3 mmol/L (3.5-5.1)
[2017-09-22 09:11] LABS: CKMB/CK RATIO 1.9 (0-3.0)
[2017-09-22] MEDS: SODIUM CHLORIDE 0.9% 1000ML 1,000 ML IV SCH ×2 (09:27→23:36)
[2017-09-22 09:46] LABS: URINE APPEARANCE CLEAR (CLEAR); URINE BILIRUBIN NEG (NEG); URINE COLOR YELLOW; URINE NITRITE NEG (NEG); URINE SPECIFIC GRAVITY 1.024 (1.000-1.030); UROBILINOGEN NEG (NEG)
[2017-09-22 09:50] LABS: MANUAL MICROSCOPIC REQUIRED? NO; REVIEW REQ? NO
[2017-09-22] MEDS ORDERED: MAGNESIUM SULFATE 1GM / D5W 1 GM in PREMIXED IN D5W 100 ML IV STA (10:00)
[2017-09-22] MEDS ORDERED: PRLSR20 PO (10:47)
--- NOTE | 2017-09-22 10:59 | Anesthesiology Progress Note ---
Anesthesia Progress Note Date of Service Sep 22, 2017. Progress Notes The patient is an 82 y/o male with a R hip fracture. The patient fell while outside using a leaf blower. He had no syncope or loss of consciousness. The patient was to have a R IM angélica placed today, but due to concerning EKG changes of possible inferior infarct and elevated cardiac enzymes, Dr. Garcia would like to further evaluate the patient overnight prior to clearing him for surgery. The patient has PMH of [place], CAD, dyslipidemia, PVD s/p L CEA, bladder cancer, and tongue cancer. The patient states that he has no chest pain or SOB and is normally walks outside, although he has a had a cough for the past few days. His CXR shows NAD. EKG shows NSR with LVH and pronounced depression in the anterolateral leads. His echo from 2015 shows EF 65% with mild LVH and mod MR. Cardiac cath from 2014 showed multivessel disease with 100% occlusion of the RCA. Labs are significant for Troponin 0.111 and CKMB 6.3 from this morning. Further cardiac enzymes are pending. On exam the patient has a MP 2 airway with TMD 3 FB. Lungs are clear. Heart is RRR. He has a left neck scar but carotids are negative for bruits. Dr. Garcia will talk to the patient about further cardiac testing.
[2017-09-22] MEDS ORDERED: NURSING VERBAL MED ORDER ONE (11:00)
[2017-09-22] MEDS ORDERED: PANTOprazole SOD 40 MG TAB PO STA (11:26)
[2017-09-22] MEDS: HYDROmorphone HCL 0.5MG/ML 50 ML CASSETTE IV PRN ×3 (11:57→23:04)
--- NOTE | 2017-09-22 13:44 | Cardiology Consultation ---
Cardiology Consultation Date of Service Sep 22, 2017. Cardiology Consultation CARDIOLOGY CONSULTATION DATE OF CONSULTATION: September 22, 2017 REFERRING PHYSICIAN: Alexis Tafoya MD PRIMARY ANIMAL HUSBANDRY TECHNICIAN: Matthew Medeiros DO REASON FOR CONSULT: Preop evaluation/elevated troponin/abnormal ECG HISTORY OF PRESENT ILLNESS: 82-year-old man with history of CAD (borderline left disease/occluded right, details below) who had a mechanical fall today and sustained right hip fracture for which operative repair is planned. 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 He denies chest pain at any time. No loss of consciousness at the time of his fall. He was minimally hypertensive without tachycardia on admission. ECGs yesterday and today showed LVH with repolarization abnormalities, however there was some new ST depression noted today. A troponin today was mildly elevated (0.111). Of note, he was found to have an elevated troponin last year in December when he was admitted with pneumonia, this was felt to be due to supply/demand mismatch at that time. His only complaint currently is severe hip pain if he attempts to move, at rest he is comfortable. CURRENT MEDICATIONS: Vitamin D Senokot Proscar Flomax Cefazolin Atorvastatin Caltrate Lexapro Multivitamins Protonix ALLERGIES: Mild adverse reaction to morphine (headache). PAST MEDICAL HISTORY: CAD, catheterization 2014 with 30 % left main, 40 % proximal LAD, occluded RCA, nondominant circumflex, left to right collaterals. Carotid stenosis, status post left endarterectomy with no significant disease on bilateral carotid Doppler 2015. Difficulty hearing Dyslipidemia Hypertension Hyperglycemia Nephrolithiasis, status post percutaneous nephrostomy Squamous cell cancer of the tongue, status post chemo/radiation PAST SURGICAL HISTORY: Prostate biopsy Cystoscopy Prostate surgery Tonsillectomy SOCIAL HISTORY: Former smoker, quit in 1982. 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 and accompanied by his . FAMILY HISTORY: Adopted, family history not obtained. REVIEW OF SYSTEMS: He notes a head cold for the past week, cough rarely productive of whitish sputum. Nasal discharge. No fever or chills. No chest pain. No dyspnea. PHYSICAL EXAMINATION: No distress. Vitals: Afebrile. BP 125/68, pulse 96 regular, respirations 16 and unlabored. Skin: No unusual lesions or ecchymosis. HEENT: Unremarkable. Neck: Jugular venous pulse at the clavicle at 90, bilateral transmitted murmur versus carotid bruits. Lungs: Clear and equal breath sounds bilaterally. No wheezing or crackles. Cardiac: Regular rhythm with normal S1 and intact aortic closure sound, 2/6 right upper sternal border systolic ejection murmur radiating to the carotids, no diastolic murmur or gallop. Abdomen: Benign. Extremities: Marked pain with any movement of his right hip, no edema, intact peripheral pulses. Neurologic: Normal affect, nonfocal DATA: ECG on admission showed sinus rhythm with LVH and repolarization abnormalities, nondiagnostic inferior Q-waves. Compared to 2016 ECG, there is T-wave inversion now evident in the anterolateral leads. ECG today was similar with the exception of new ST depression in the anterolateral leads (2 mm horizontal to slightly downsloping depression in the context of marked LVH). Chest x-ray showed no acute process. Echocardiogram today showed normal left ventricular size and systolic function with no regional wall motion abnormalities. There is moderate LVH with diastolic dysfunction and mild mitral and tricuspid regurgitation with normal right ventricular systolic pressure. Compared with study from 1 year ago, no significant change. As noted, troponin was 0.111. CK was 326 but with a negative MB ratio. Electrolytes are normal with BUN 31, creatinine 0.85, glucose 130. Normal CBC. Normal coagulation studies. IMPRESSION: 1. Asymptomatic elevation of troponin with abnormal ECG, likely supply/demand mismatch in the context of known coronary artery disease. 2. Coronary artery disease, occluded right/borderline left disease on catheterization 2015. 3. Acute right hip fracture, operative repair planned. 4. History of carotid disease, no remaining significant stenoses after left endarterectomy. 5. History of hypertension, normotensive currently. 6. Good functional status prior to recent fall. DISCUSSION: Although the patient had a very good functional status and physically active lifestyle prior to his fall, dynamic ECG changes and troponin elevation were noted just prior to planned operative repair of his hip fracture resulting in delay of surgery to further assess his cardiac status. Fortunately, reviewing his record, it is quite likely that his coronary anatomy is such that the increased physiologic stress of his hip fracture (no doubt associated with transient hypertension/tachycardia at the time of his fall) resulted in supply/ demand mismatch with mild troponin elevation (similar to that which occurred at the time of pneumonia in December of 2015). The complete absence of pre and post fall chest symptoms is reassuring, as is his unremarkable echocardiogram. However, do feel it would be prudent to observe overnight with serial troponins and a follow-up ECG to ensure that there is not a progressive cardiac process occurring. Meanwhile, he is mildly tachycardic currently, would recommend initiation of low -dose beta-sony (he had not been initiated as an outpatient due to relatively low routine blood pressure and history of lightheadedness in the past ). He takes aspirin 325 mg roughly every other day (last taken yesterday). Would not restart today given risk of increased bleeding at the fracture site, but would ensure that aspirin is restarted postoperatively as long-term anti- platelet agent for his coronary artery disease. Thank you for this interesting consultation. Dr. Medeiros, his primary spindle tester, will likely assume care tomorrow (please call me if he is not available, ).
--- NOTE | 2017-09-22 14:02 | ECHOCARDIOGRAM REPORT ---
*NOTICE TO RECEIVING REPUBLICAN AGENCY This information is strictly Confidential and protected under [place] law. [place] law prohibits you from making any further disclosure of this information unless further disclosure is expressly permitted by the written consent of the person to whom it pertains or is authorized by law. A general authorization for the release of medical or other information is not sufficient for this purpose. Hospital accepts no responsibility if the information is made available to any other person, INCLUDING THE PATIENT. Interpretation Summary * Name: LILY SALAS Study Date: 09/22/2017 12:43 PM BP: 125/68 mmHg * Patient Location: .3E\S\E319\S\1 HR: 96 * : 1935 (M/d/yyy) Gender: Male Height: 69 in * Age: 82 yrs Ethnicity: [place] Weight: 186 lb * Ordering Physician: Alexis Tafoya * Performed By: Cara Ornelas RDCS * * Reason For Study: PRE-OP, ELEVATED TROP, H/O CAD * BSA: 2.0 m2 * -- Conclusions -- * Compared with 01/04/16 study, no significant change. * The left ventricle is normal in size. * Left ventricular systolic function is normal. * Ejection Fraction = 60-65%. * The left ventricular wall motion is normal. * There is moderate concentric left ventricular hypertrophy. * Grade I diastolic dysfunction, (abnormal relaxation pattern). * There is mild mitral regurgitation. * The left atrium is mildly dilated. * There is mild tricuspid regurgitation. * Right ventricular systolic pressure is normal. Procedure Details * A complete two-dimensional transthoracic echocardiogram was performed (2D, M-mode, Doppler and color flow Doppler). Left Ventricle * The left ventricle is normal in size. * There is moderate concentric left ventricular hypertrophy. * Ejection Fraction = 60-65%. * Left ventricular systolic function is normal. * The left ventricular wall motion is normal. Right Ventricle * The right ventricle is normal in size and function. Atria * The left atrium is mildly dilated. * Right atrial size is normal. * The interatrial septum is intact with no evidence for an atrial septal defect. Mitral Valve * The mitral valve leaflets appear thickened, but open well. * There is mild mitral regurgitation. Tricuspid Valve * The tricuspid valve is normal in structure and function. * There is mild tricuspid regurgitation. * Right ventricular systolic pressure is normal. Aortic Valve * Aortic valve sclerosis moderate, without significant aortic valvular stenosis. * Mild aortic regurgitation. Pulmonic Valve * The pulmonic valve is not well seen, but is grossly normal. * Trace pulmonic valvular regurgitation. Great Vessels * Aortic arch of normal dimension. * No obvious dissection could be visualized. Pericardium/Pleural * There is no pericardial effusion. Great Vessels * Normal inferior vena cava diameter and respiratory variation suggests normal central venous pressure. Left Ventricular Diastolic Function * Grade I diastolic dysfunction, (abnormal relaxation pattern). MMode 2D Measurements and Calculations IVSd 1.4 cm IVSs 2.0 cm LVIDd 4.2 cm LVIDs 2.9 cm LVPWd 1.1 cm LVPWs 1.7 cm IVS/LVPW 1.3 FS 32.3 % EDV(Teich) 79.1 ml ESV(Teich) 31.0 ml EF(Teich) 60.9 % EDV(cubed) 74.8 ml ESV(cubed) 23.2 ml EF(cubed) 68.9 % % IVS thick 42.5 % % LVPW thick 51.9 % LV mass(C)d 196.9 grams LV mass(C)dI 98.3 grams/m\S\2 LV mass(C)s 221.3 grams LV mass(C)sI 110.5 grams/m\S\2 SV(Teich) 48.2 ml SI(Teich) 24.1 ml/m\S\2 SV(cubed) 51.5 ml SI(cubed) 25.7 ml/m\S\2 ACS 0.90 cm LA dimension 3.8 cm asc Aorta Diam 3.4 cm LVOT diam 1.9 cm LVOT area 2.8 cm\S\2 LVAd ap4 27.6 cm\S\2 LVLd ap4 8.3 cm EDV(MOD-sp4) 77.5 ml EDV(sp4-el) 78.0 ml LVAs ap4 16.1 cm\S\2 LVLs ap4 7.6 cm ESV(MOD-sp4) 30.6 ml ESV(sp4-el) 29.0 ml EF(MOD-sp4) 60.5 % EF(sp4-el) 62.8 % LVAd ap2 31.5 cm\S\2 LVLd ap2 9.0 cm EDV(MOD-sp2) 92.1 ml EDV(sp2-el) 93.4 ml LVAs ap2 17.1 cm\S\2 LVLs ap2 7.6 cm ESV(MOD-sp2) 33.8 ml ESV(sp2-el) 32.6 ml EF(MOD-sp2) 63.3 % EF(sp2-el) 65.1 % LVLd %diff 8.1 % EDV(MOD-bp) 87.4 ml LVLs %diff -0.14 % ESV(MOD-bp) 32.1 ml EF(MOD-bp) 63.3 % SV(MOD-sp4) 46.9 ml SI(MOD-sp4) 23.4 ml/m\S\2 SV(MOD-sp2) 58.3 ml SI(MOD-sp2) 29.1 ml/m\S\2 SV(MOD-bp) 55.3 ml SI(MOD-bp) 27.6 ml/m\S\2 SV(sp4-el) 49.0 ml SI(sp4-el) 24.5 ml/m\S\2 SV(sp2-el) 60.8 ml SI(sp2-el) 30.3 ml/m\S\2 Doppler Measurements and Calculations MV E max hillary 64.3 cm/sec MV A max hillary 80.2 cm/sec MV E/A 0.80 MV dec time 0.25 sec Ao V2 max 161.6 cm/sec Ao max PG 10.4 mmHg Ao max PG (full) 3.4 mmHg CYNDI(V,A) 2.3 cm\S\2 CYNDI(V,D) 2.3 cm\S\2 LV V1 max PG 7.0 mmHg LV V1 max 132.4 cm/sec MR max hillary 416.3 cm/sec MR max PG 69.3 mmHg PA V2 max 100.3 cm/sec PA max PG 4.0 mmHg TR max hillary 266.6 cm/sec
[2017-09-22] MEDS ORDERED: METOPROLOL TARTRATE 25 MG TAB PO ONE (15:15)
[2017-09-22 15:31] LABS: CKMB/CK RATIO 1.5 (0-3.0)
[2017-09-22] MEDS: FINASTERIDE 5 MG TAB PO SCH (20:41)
[2017-09-22] MEDS: DOCUSATE SODIUM/SENNA 50/8.6MG TAB PO SCH (20:41)
[2017-09-22] MEDS: METOPROLOL TARTRATE 25 MG TAB PO SCH (20:42)
[2017-09-22] MEDS: TAMSULOSIN HCL 0.4 MG CAP PO SCH (20:42)
--- NOTE | 2017-09-22 22:18 | Progress Note ---
Subjective Date of Service: Sep 22, 2017. Subjective Pt evaluation today including: conversation w/ patient, physical exam, chart review, lab review, review of studies (echo, cxr, etc), conversation w/ platform consultant (orthopedics, cardiology, anesthesiology), review of inpatient medication list Pain: right hip; no chest pain PO Intake: npo for ?surgery Voiding: albright catheter in place patient required copious amounts of IV dilaudid this am to remain comfortable he reports he sees Dr. Matthew Medeiros at [facility] cardiology - last visit about 6 months ago patient denies any recent chest pain (exertional or otherwise), dyspnea, orthopnea, extreme fatigue cath report from 2014 from [place] reviewed he also mentions he has had a cough/cold for about 7 days, but it is "getting better" Problem List Medical Problems: (1) Cough Status: Acute (2) Elevated troponin Status: Acute (3) Epistaxis Status: Acute (4) Fall Status: Acute (5) Febrile neutropenia Status: Acute (6) Femur fracture, right Status: Acute (7) Nonspecific ST-T wave electrocardiographic changes Status: Acute (8) Pneumonia Status: Acute (9) Rigors Status: Acute (10) Throat cancer Status: Acute Review of Systems Constitutional: No fever Respiratory: No shortness of breath, No dyspnea on exertion Cardiac: No chest pain, No orthopnea, No PND, No edema Abdomen: No pain Objective Vital Signs Date Time Temp Pulse Resp B/P (MAP) Pulse Ox O2 Delivery O2 Flow Rate FiO2 09/22/17 16:15 37.4 72 16 112/66 (81) 96 Humidified Oxygen 4.0 09/22/17 15:35 71 128/74 (92) 09/22/17 15:30 36.9 69 16 106/65 (79) 97 Humidified Oxygen 09/22/17 15:25 Nasal Cannula 4.0 Humidified Oxygen 09/22/17 14:05 76 20 99/61 (74) 95 09/22/17 13:51 81 16 130/60 (83) 93 Humidified Oxygen 4.0 09/22/17 08:05 96 96 Nasal Cannula 4.0 Humidified Oxygen 09/22/17 07:59 99 90 Nasal Cannula 2.0 09/22/17 07:50 103 76 Room Air 09/22/17 07:13 37.1 97 16 125/68 (87) 90 Room Air 12/2/17 23:45 Room Air 09/21/17 23:04 36.6 89 16 127/72 (90) 93 Room Air 09/21/17 20:53 36.8 73 17 154/70 (98) 94 Room Air 09/21/17 20:50 36.8 17 154/70 Room Air 09/21/17 20:17 89 18 101/67 95 09/21/17 20:11 89 18 101/67 95 Room Air Physical Exam General Appearance: no apparent distress ENT: pharynx normal Neck: no JVD Respiratory/Chest: lungs clear, no respiratory distress, no accessory muscle use Cardiovascular: regular rate, rhythm, no gallop, + systolic murmur (1-2/6 RUSB) Abdomen: normal bowel sounds, non tender, soft, no organomegaly Extremities: + pertinent finding (right leg externally rotated and shorter than the left leg; pulses 2+ b/l; no edema) Neurologic/Psychiatric: alert, oriented x 3 Laboratory Results Last 24 Hours Test 09/22/17 08:04 09/22/17 09:00 09/22/17 14:31 Sodium Level 138 mmol/L Potassium Level 4.3 mmol/L Chloride Level 103 mmol/L Carbon Dioxide Level 30 mmol/L Anion Gap 4.0 mmol/L Blood Urea Nitrogen 31 mg/dl Creatinine 0.85 mg/dl Est Creatinine Clear Calc Drug Dose 26.3 ml/min Estimated GFR () 94.7 Estimated GFR (Non- 81.7 BUN/Creatinine Ratio 36.4 Random Glucose 130 mg/dl Calcium Level 8.8 mg/dl Magnesium Level 1.7 mg/dl Total Creatine Kinase 326 U/L 353 U/L Creatine Kinase MB 6.3 ng/ml 5.3 ng/ml Creatine Kinase MB Ratio 1.9 1.5 Troponin I 0.111 ng/ml 0.364 ng/ml Urine Color YELLOW Urine Appearance CLEAR Urine pH 5.0 Urine Specific [place] 1.024 Urine Protein 2+ Urine Glucose (UA) NEG Urine Ketones TRACE Urine Occult Blood 2+ Urine Nitrite NEG Urine Bilirubin NEG Urine Urobilinogen NEG Urine Leukocyte Esterase MODERATE Urine WBC (Auto) 10-30 /hpf Urine RBC (Auto) 5-10 /hpf Urine Hyaline Casts (Auto) 5-10 /lpf Urine Epithelial Cells (Auto) 10-20 /lpf Urine Bacteria (Auto) NEG Assessment and Plan 82yo male: 1. right hip fracture - ortho consult appreciated. Cardiac risk is at least moderate given his known CAD, EKG changes, etc (see below). DVT proph per orthopedics. Plan - observe overnight due to EKG changes/troponin elevation; await echo. NPO after MN tonight for probable ORIF tomorrow. 2. CAD with prior PA - now with marked ST segment depressions I/AVL and V4-V6. His troponin is mildly positive as well. Spoke with Dr. Garcia from cardiology who feels that we should run serial enzymes today, obtain echo, and repeat his EKG tonight and/or in the AM. I feel that is best as well. This may simply represent myocardial demand ischemia in the setting of #1 above. 3. BPH - continue dual therapy. 4. FEN - continue IVF, NPO after MN tonight, lytes in the AM. 5. hyperlipidemia - continue statin. 6. pain control - may need to consider MAR[employer]ER. 7. h/o bladder ca & cancer of the tongue - noted. 8. recent URI - no evidence of lower respiratory tract infection on cxr or exam. Monitor. 9. DVT proph - defer to orthopedics. 10. hypomagnesemia - replace IV, repeat level in AM. 11. c/o rigors - check u/a and urine cx, r/o UTI. If any worsening in pulmonary status then repeat CXR in the AM. If any temp spike - blood cx's X 2 sets. Continued [facility] stay due to: inadequate oral pain control, ambulation difficulties, multiple IV medications needed Discharge planning: uncertain
[2017-09-23] VITALS (10 sets, daily range): BP systolic 92–147; BP diastolic 55–71; PULSE 65–81; TEMP 36.3–37.1; O2SAT 95–97
[2017-09-23 04:54] LABS: BUN/CREATININE RATIO 36.5 (10-20); CALCIUM 8.3 mg/dl (8.5-10.1); CREATININE 0.8 mg/dl (0.60-1.40); MAGNESIUM 1.9 mg/dl (1.8-2.4); POTASSIUM 4.4 mmol/L (3.5-5.1)
[2017-09-23 05:03] LABS: HEMATOCRIT 32.1 % (42-52); MEAN CORPUSCULAR HEMOGLOBIN 30.8 pg (25-34); MEAN CORPUSCULAR HGB CONC 32.4 g/dl (32-36); MEAN PLATELET VOLUME 9.4 fL (7.4-10.4); PLATELET COUNT 153 K/uL (130-400); RED BLOOD COUNT 3.38 M/uL (4.7-6.1); WHITE BLOOD COUNT 7.32 K/uL (4.8-10.8)
[2017-09-23] MEDS ORDERED: CEFAZOLIN 2000MG IV PUSH 10 ML IV SCH (06:00)
[2017-09-23] MEDS ORDERED: BUPIVACAINE 0.5 % 5 MG/1 ML PF 10ML VIAL ONE ×2 (06:50→19:11)
[2017-09-23] MEDS: HYDROmorphone HCL 0.5MG/ML 50 ML CASSETTE IV PRN ×4 (06:56→23:01)
--- NOTE | 2017-09-23 07:10 | PROGRESS NOTE ---
DATE: 09/22/2017 CHIEF COMPLAINT: Left subtrochanteric hip fracture. PROGRESS: Dm was seen and examined at bedside today. Overall, he is doing fairly well. He was a little bit hypoxic earlier and I placed him on 4 liters of humidified air. It seems to help him out a lot. Medicine is aware. He was unable to get any sleep last night. He says as long as he does not move his right hip, he is not painful, but as soon as he moves even a little bit, he has severe pain. He is looking forward to getting his leg fixed. PHYSICAL EXAMINATION: RIGHT LEG: There are no abrasions, lesions, or lacerations of the skin. He is sitting with his right leg shortened and externally rotated. There is gross deformity of the proximal femur. He has active dorsiflexion and plantarflexion of the right ankle. LABORATORIES: Done this morning, he does have a troponin of 0.11 and the medicine team is aware of that. His vital signs are stable and he is satting at 96% as long as he has been on 4 liters of nasal cannula. Without the nasal cannula, he is around 90%-93%. IMPRESSION: Right subtrochanteric hip fracture. PLAN: I did discuss this with Dr. Tafoya. He is going to currently look at him for his lungs and his troponin levels. I would like to fix his hip today if we can. I think by stabilizing the fracture, he will be able to sit up more at bedside, even some in the chair and might help some of his symptoms. We will make sure he is safe for surgery. He is currently n.p.o. and we would like to fix it later today.
[2017-09-23] MEDS: MULTIVITAMIN TAB PO SCH (08:33)
[2017-09-23] MEDS: ATORVASTATIN 40 MG TAB PO SCH (08:33)
[2017-09-23] MEDS: CALCIUM 600MG + VIT D 400 IU TAB PO SCH (08:33)
[2017-09-23] MEDS: TOCOPHERYL, DL-ALPHA 400 INTER.UNIT CAP PO SCH (08:33)
[2017-09-23] MEDS: PANTOprazole SOD 40 MG TAB PO SCH (08:33)
[2017-09-23] MEDS: ESCITALOPRAM OXALATE 10 MG TAB PO SCH (08:33)
[2017-09-23] MEDS: METOPROLOL TARTRATE 25 MG TAB PO SCH ×2 (09:00→22:42)
--- NOTE | 2017-09-23 10:26 | Cardiology Follow-Up ---
Subjective General Date of Service: Sep 23, 2017. Pt evaluation today including: conversation w/ patient, chart review, lab review, review of studies, conversation w/ sales development consultant History of Present Illness The patient is a 82 year old male with right hip fx Allergies Coded Allergies: Morphine (Verified Adverse Reaction, Mild, HEADACHE, 03/22/16) Social History Smoking Status: Never Smoker Hx Tobacco Use In Past Year?: No Hx Alcohol Use - Type And Amou: Yes (Wine) Hx Substance Use - Type And Am: No Problem List Medical Problems: (1) Cough Status: Acute (2) Elevated troponin Status: Acute (3) Epistaxis Status: Acute (4) Fall Status: Acute (5) Febrile neutropenia Status: Acute (6) Femur fracture, right Status: Acute (7) Nonspecific ST-T wave electrocardiographic changes Status: Acute (8) Pneumonia Status: Acute (9) Rigors Status: Acute (10) Throat cancer Status: Acute Review of Systems Respiratory: + cough, No shortness of breath, No dyspnea on exertion, No dyspnea at rest Cardiac: No chest pain, No edema, No palpitations Physical Exam Vital Signs Last Vital Signs Documentation Date Time Temp Pulse Resp B/P (MAP) Pulse Ox O2 Delivery O2 Flow Rate FiO2 09/23/17 10:07 92/55 (67) 09/23/17 07:47 97 Nasal Cannula 4.0 09/23/17 07:30 36.8 65 18 Physical Exam Constitutional: General Apperance: heathly-appearing Level of Distress: mild distress, acutely ill Lungs: Respiratory effort: no dyspnea Auscultation: breath sounds normal, no wheezing, no rales/crackles, no rhonchi Cardiovascular: Heart Auscultation: RRR, no murmurs, no rubs, no gallops Peripheral Pulses: Carotid Pulse: normal on the left, normal on the right Abdomen: Bowel Sounds: normal Inspection & Palpation: soft, non-distended, no tenderness, guarding & rebound Extremities: no varicosities Assessment and Plan Assessment and Plan IMPRESSION: 1. Asymptomatic elevation of troponin with abnormal ECG, likely supply/demand mismatch in the context of known coronary artery disease. 2. Coronary artery disease, occluded right/borderline left disease on catheterization 2015. 3. Acute right hip fracture secondary to a Fall ( no palps and NO LOC) , operative repair planned. 4. History of carotid disease, no remaining significant stenoses after left endarterectomy. 5. History of hypertension 6. Good functional status prior to recent fall--20K steps, using push mower, climbing stairs without angina 7. Anemia/Acute blood loss--? all in Hip I reviewed Echo (normal LV fxn and no RWMA) and serial EKG's EKG with ST depression on admission and now with T wave inversions across precordial leads with no anginal symptoms (known LVH) Troponin minimally elevated and trending down. One would expect with a large area of anterior ischemia his troponin would be much higher and he would have an anterior wall motion abnormality by echo He needs to have this sx. Significant hip pain uncontrolled by STATISTICAL MACHINE MECH[employer]IC pump. excessive bleeding into hip Continue BB Monitor closely after SX Keep HGB >9 D/w Dr Garcia at the bedside Laboratory Results Last 24 Hours Test 09/22/17 14:31 09/22/17 20:50 09/23/17 04:21 Total Creatine Kinase 353 U/L Creatine Kinase MB 5.3 ng/ml Creatine Kinase MB Ratio 1.5 Troponin I 0.364 ng/ml 0.355 ng/ml 0.300 ng/ml White Blood Count 7.32 K/uL Red Blood Count 3.38 M/uL Hemoglobin 10.4 g/dL Hematocrit 32.1 % Mean Corpuscular Volume 95.0 fL Mean Corpuscular Hemoglobin 30.8 pg Mean Corpuscular Hemoglobin Concent 32.4 g/dl RDW Standard Deviation 41.5 fL RDW Coefficient of Variation 12.2 % Platelet Count 153 K/uL Mean Platelet Volume 9.4 fL Sodium Level 137 mmol/L Potassium Level 4.4 mmol/L Chloride Level 104 mmol/L Carbon Dioxide Level 30 mmol/L Anion Gap 3.0 mmol/L Blood Urea Nitrogen 29 mg/dl Creatinine 0.80 mg/dl Est Creatinine Clear Calc Drug Dose 72.5 ml/min Estimated GFR () 97.1 Estimated GFR (Non- 83.8 BUN/Creatinine Ratio 36.5 Random Glucose 146 mg/dl Calcium Level 8.3 mg/dl Magnesium Level 1.9 mg/dl
--- NOTE | 2017-09-23 10:40 | Progress Note ---
Subjective Date of Service: Sep 23, 2017. Subjective Pt evaluation today including: conversation w/ patient, physical exam, chart review, lab review, conversation w/ environmental consultant (cardiology - Dr. Medeiros), review of inpatient medication list Pain: right hip - severe - has already hit CT TECH button 14x's since 0700 PO Intake: npo Voiding: albright catheter in place denies any chest pain, sob but continues with cough denies any h/o melena stools or BRBPR or upper GI symptoms (dyspepsia, etc) no prior h/o PUD Problem List Medical Problems: (1) Cough Status: Acute (2) Elevated troponin Status: Acute (3) Epistaxis Status: Acute (4) Fall Status: Acute (5) Febrile neutropenia Status: Acute (6) Femur fracture, right Status: Acute (7) Nonspecific ST-T wave electrocardiographic changes Status: Acute (8) Pneumonia Status: Acute (9) Rigors Status: Acute (10) Throat cancer Status: Acute Review of Systems Constitutional: No fever Respiratory: + cough, No sputum, No dyspnea at rest Cardiac: No chest pain, No orthopnea Abdomen: + constipation, No pain Objective Vital Signs Date Time Temp Pulse Resp B/P (MAP) Pulse Ox O2 Delivery O2 Flow Rate FiO2 09/23/17 10:07 92/55 (67) 09/23/17 07:47 97 Nasal Cannula 4.0 09/23/17 07:30 36.8 65 18 98/60 (73) 97 Nasal Cannula 4.0 09/23/17 07:15 Nasal Cannula 4.0 09/23/17 03:50 36.7 71 17 109/71 (84) 95 Nasal Cannula 4.0 Humidified Oxygen 09/22/17 23:35 Nasal Cannula 09/22/17 23:32 36.9 76 17 108/64 (79) 91 Nasal Cannula 4.0 09/22/17 20:40 80 124/69 (87) 93 Nasal Cannula 4.0 Humidified Oxygen 09/22/17 16:15 37.4 72 16 112/66 (81) 96 Humidified Oxygen 4.0 09/22/17 15:35 71 128/74 (92) 09/22/17 15:30 36.9 69 16 106/65 (79) 97 Humidified Oxygen 09/22/17 15:25 Nasal Cannula 4.0 Humidified Oxygen 09/22/17 14:05 76 20 99/61 (74) 95 09/22/17 13:51 81 16 130/60 (83) 93 Humidified Oxygen 4.0 Physical Exam General Appearance: no apparent distress ENT: pharynx normal Neck: no JVD Respiratory/Chest: no respiratory distress, no accessory muscle use, + wheezing (mild end-exp) Cardiovascular: regular rate, rhythm, no gallop, + systolic murmur (1/6 RUSB) Abdomen: normal bowel sounds, non tender, soft, no organomegaly Extremities: + swelling (severe, over right hip and thigh (somewhat tense actually)), + pertinent finding (right hip shortened and externally rotated) Neurologic/Psychiatric: alert, oriented x 3 Comments: NEMO - firm, hard, dark-appearing stool hemoccult pending Laboratory Results Last 24 Hours Test 09/22/17 14:31 09/22/17 20:50 09/23/17 04:21 09/23/17 10:29 Total Creatine Kinase 353 U/L Creatine Kinase MB 5.3 ng/ml Creatine Kinase MB Ratio 1.5 Troponin I 0.364 ng/ml 0.355 ng/ml 0.300 ng/ml White Blood Count 7.32 K/uL Red Blood Count 3.38 M/uL Hemoglobin 10.4 g/dL Hematocrit 32.1 % Mean Corpuscular Volume 95.0 fL Mean Corpuscular Hemoglobin 30.8 pg Mean Corpuscular Hemoglobin Concent 32.4 g/dl RDW Standard Deviation 41.5 fL RDW Coefficient of Variation 12.2 % Platelet Count 153 K/uL Mean Platelet Volume 9.4 fL Sodium Level 137 mmol/L Potassium Level 4.4 mmol/L Chloride Level 104 mmol/L Carbon Dioxide Level 30 mmol/L Anion Gap 3.0 mmol/L Blood Urea Nitrogen 29 mg/dl Creatinine 0.80 mg/dl Est Creatinine Clear Calc Drug Dose 72.5 ml/min Estimated GFR () 97.1 Estimated GFR (Non- 83.8 BUN/Creatinine Ratio 36.5 Random Glucose 146 mg/dl Calcium Level 8.3 mg/dl Magnesium Level 1.9 mg/dl Assessment and Plan 82yo male: 1. right hip fracture - ortho consult appreciated. Cardiac risk is at least moderate given his known CAD, EKG changes, +troponin, etc (see below). DVT proph per orthopedics. Plan - spoke with Dr. Medeiros - despite the EKG changes and troponin he has NO ischemic symptoms. Echo also w/o wall motion abnormalities. He is optimized from cardiac standpoint for his procedure. 2. CAD with prior [place] - now with marked ST segment depressions I/AVL and V4-V6. His troponin is mildly positive and has peaked. ECHO with normal LV wall motion. This may represent myocardial demand ischemia in the setting of #1 above. 3. BPH - continue dual therapy. 4. FEN - continue IVF, NPO, stable lytes today. 5. hyperlipidemia - continue statin. 6. pain control - cont CT TECH, consider adjustment or adding a low amount of basal. 7. h/o bladder ca & cancer of the tongue - noted. 8. recent URI - now with mild wheezing. Overtly he does not appear to be in CHF; wheezing may be from bronchitis. Consider beta agonist. 9. DVT proph - defer to orthopedics. 10. hypomagnesemia - replaced; now normal. 11. c/o rigors - urine cx pending. consider blood cx's if any temp spike. 12. acute blood loss anemia - 4 gram drop in 30 hours. Concerning. Certainly he has had some bleeding into the hip joint from the fracture. But the elevated BUN with normal creatinine could indicate an upper GI bleed. Hemoccult obtained and is pending. If it is + will let anesthesiology know and start IV PPI. If it is negative then this is likely a combination of blood loss into the hip, blood draws, and some element of dilution from IVF. Monitor closely. Continued [facility] stay due to: inadequate po fluid intake, inadequate oral pain control, voiding difficulties, ambulation difficulties, multiple IV medications needed, home environment unsafe for pt Discharge planning: uncertain
[2017-09-23] MEDS: SODIUM CHLORIDE 0.9% 1000ML 1,000 ML IV SCH (13:00)
[2017-09-23] MEDS ORDERED: MIDAZOLAM HCL 1 MG/ML 2ML VIAL ONE (19:09)
[2017-09-23] MEDS ORDERED: FENTANYL CITRATE INJ 50 MCG/1 ML 2 ML VIAL ONE (19:09)
--- NOTE | 2017-09-23 19:23 | History & Physical Bridge Note ---
H&P Re-Evaluation Bridge Note: I have examined the patient, reviewed the History & Physical and in the interval since the performance of the History & Physical I have noted the following changes of clinical significance: No changes noted
--- NOTE | 2017-09-23 21:39 | DIAGNOSTIC IMAGING REPORT ---
INTRAOPERATIVE RIGHT HIP 6 VIEWS CLINICAL HISTORY: Right hip fracture. Internal fixation. COMPARISON STUDY: September 21, 2017 FLUOROSCOPY TIME: 179 seconds.. NUMBER OF FLUOROSCOPIC IMAGES: 6 FINDINGS: 6 views reveal a subtrochanteric fracture which has been fixated with a trochanteric canal and interlocking intramedullary angélica. IMPRESSION: Internally fixated right hip fracture. A trochanteric nail and interlocking intramedullary angélica are visualized. Electronically signed by: Yosef Beebe M.D. 09/23/2017 9:37 PM Dictated Date/Time: 09/23/2017 9:36 PM
--- NOTE | 2017-09-23 21:50 | [facility] Post Operative Brief Note ---
Immediate Operative Summary Operative Date Sep 23, 2017. Pre-Operative Diagnosis Right subtrochanteric hip fracture Post-Operative Diagnosis Right subtrochanteric hip fracture Procedure(s) Performed Right Intramedullary Nail Subtrochanteric Fracture Hip Surgeon Dr. Pichardo [facility] Surgeon(s) none Estimated Blood Loss 100CC Findings as above Specimens None Complication(s) None Disposition Recovery Room / PACU
--- NOTE | 2017-09-23 21:54 | Anesthesiology Progress Note ---
Anesthesia Post Op Note Date & Time Sep 23, 2017 at 21:54 Vital Signs Pain Intensity: 10.0 Vital Signs Past 12 Hours Date Time Temp Pulse Resp B/P (MAP) Pulse Ox O2 Delivery O2 Flow Rate FiO2 09/23/17 18:50 37.1 79 18 140/71 (94) 95 Nasal Cannula 2 09/23/17 15:11 36.9 73 18 112/65 (81) 97 Nasal Cannula 4.0 09/23/17 15:00 Nasal Cannula 4.0 Humidified Oxygen 09/23/17 12:04 36.6 70 17 106/66 (79) 96 Nasal Cannula 4.0 09/23/17 10:07 92/55 (67) Notes Mental Status: alert / awake / arousable, participated in evaluation Pt Amnestic to Procedure: Yes Nausea / Vomiting: adequately controlled Pain: adequately controlled Airway Patency, RR, SpO2: stable & adequate BP & HR: stable & adequate Hydration State: stable & adequate Anesthetic Complications: no major complications apparent
--- NOTE | 2017-09-23 22:28 | DIAGNOSTIC IMAGING REPORT ---
FEMUR 2 VIEWS ROUTINE CLINICAL HISTORY: Postop internal fixation of right hip fracture COMPARISON: September 21, 2017 DISCUSSION: There is an internally fixated subtrochanteric hip fracture. There is trochanteric nail, and interlocking intramedullary angélica. There are overlying skin abdifatah. IMPRESSION: Internally fixated right hip fracture. A trochanteric nail and interlocking intramedullary angélica are visualized Electronically signed by: Yosef Beebe M.D. 09/23/2017 10:27 PM Dictated Date/Time: 09/23/2017 10:25 PM
--- NOTE | 2017-09-23 22:28 | OPERATIVE REPORT ---
DATE OF OPERATION: 09/23/2017 PREOPERATIVE DIAGNOSIS: Subtrochanteric fracture of the right hip. POSTOPERATIVE DIAGNOSIS: Same. PROCEDURE: Intramedullary nail fixation of the right femur. SURGEON: Ceasar Pichardo DO. PIPE SMOKING MACHINE OPERATOR: None. ANESTHESIA: Spinal. COMPLICATIONS: None. CONDITION: Stable to PACU. IMPLANTS USED: I used a Synthes TFN nail. The nail was 400 x 11 mm with 100 mm helical blade and a single distal locking screw. INDICATIONS: Dm is an 82-year-old male who was cleaning his gutters several days ago when he fell onto his right hip. He came to the Emergency Room where radiographs demonstrated displaced subtrochanteric hip fracture. He was admitted to the medical service. Unfortunately, because of cardiac issues surgery was delayed. Once his cardiac issues were resolved and he was medically stabilized, we elected to proceed with intramedullary nail fixation. OPERATION AND FINDINGS: On 09/23/2017, he was brought down from his hospital room to the preoperative holding area and the operative extremity was identified and signed. He was given 2 grams of Ancef and a spinal anesthetic. He was taken back to the operating room, laid on a fracture table in supine position and put under basic sedation. The right hip was then brought out to traction. The right hip was then prepped and draped in sterile fashion. Time-out was done and the patient and operative extremity was properly identified. A longitudinal incision was made just superior to the greater trochanter. Dissection was taken down through the fascia and a guide pin was placed at the tip of the greater trochanter. Position was checked under fluoroscopy. The guide pin was passed down the center of the femur. An 18 mm opening reamer was then used. Attempt was made to pass the guide pin failed because of displacement of the fracture I was unable to pass it. I tried to play with retraction but was unable to fully reduce it. Decision was made to do an open reduction. A longitudinal incision was made directly over the fracture site. Dissection was taken down through the fascia and the vastus lateralis was retracted superiorly. The fracture was then grasped with a clamp. The guidewire was then easily passed down to the distal femur. The nail measured to be 400 mm. An 8 reamer was used followed by a size 12 reamer. An 11 x 400 mm Synthes TFN nail was then impacted into place. An outrigger had a guide for a helical blade. A guide pin was placed in the center-center position of the femoral head. The helical blade measured to be 100 mm. The lateral cortex was drilled, the femoral head was drilled and a 100 mm helical blade was then impacted into place. The blade was then locked and the outrigger was removed. Fluoroscopic images showed adequate placement of the hardware and anatomic reduction of the fracture. With the use of perfect united keetoowah technique, a distal locking screw was placed. Final fluoroscopic images were obtained. The wounds were then irrigated with normal saline solution. The deep fascia was closed with #1 Vicryl, skin was closed with 2-0 Vicryl and abdifatah. He was placed in a soft compressive dressing and taken to the postanesthesia care unit in stable condition. He tolerated the procedure well. I attest to the content of the Intraoperative Record and any orders documented therein. Any exception s are noted below.
[2017-09-23] MEDS: TAMSULOSIN HCL 0.4 MG CAP PO SCH (22:41)
[2017-09-23] MEDS: DOCUSATE SODIUM/SENNA 50/8.6MG TAB PO SCH (22:43)
[2017-09-23] MEDS: FINASTERIDE 5 MG TAB PO SCH (22:43)
[2017-09-23] MEDS: ZOLPIDEM TARTRATE 5 MG TAB PO PRN (23:43)
[2017-09-24] VITALS (12 sets, daily range): BP systolic 92–118; BP diastolic 54–71; PULSE 57–85; TEMP 36.4–36.9; O2SAT 92–100
[2017-09-24] MEDS: CEFAZOLIN IV 2,000 MG in SYRINGE 0 ML IV SCH ×2 (04:19→12:00)
[2017-09-24] MEDS: SODIUM CHLORIDE 0.9% 1000ML 1,000 ML IV SCH ×2 (04:19→17:22)
[2017-09-24] MEDS: HYDROmorphone HCL 0.5MG/ML 50 ML CASSETTE IV PRN ×3 (07:04→23:23)
--- NOTE | 2017-09-24 07:09 | PROGRESS NOTE ---
DATE: 09/24/2017 CHIEF COMPLAINT: Status post IM nail of the right femur postoperative day #1. PROGRESS: Dm was seen and examined at bedside today. He was having a lot of soreness in his leg, but it did feel better that it was stabilized. He was able to sit up and use the commode and had a bowel movement last night. He has no other complaints. PHYSICAL EXAMINATION: RIGHT LEG: The dressing is clean and dry. He is lying with his leg out in full extension. He has active dorsiflexion and plantarflexion of his right ankle and sensation is intact. LABORATORY DATA: This morning are still pending. X-rays postoperatively of the right femur show anatomical alignment of the fracture and good placement of the hardware. IMPRESSION: Status post IM nail of the right femur, postop day #1. PLAN: At this point, he is doing well. We will do Lovenox 40 mg subQ daily for DVT prophylaxis. He can be up and weightbearing as tolerated with physical therapy and he is stable for discharge when medically ready.
[2017-09-24 08:32] LABS: MEAN CELL VOLUME 93.9 fL (80-100); MEAN CORPUSCULAR HGB CONC 33.1 g/dl (32-36); MEAN PLATELET VOLUME 9.5 fL (7.4-10.4); PLATELET COUNT 138 K/uL (130-400); RED BLOOD COUNT 2.77 M/uL (4.7-6.1); WHITE BLOOD COUNT 5.54 K/uL (4.8-10.8)
[2017-09-24] MEDS: ATORVASTATIN 40 MG TAB PO SCH (08:50)
[2017-09-24] MEDS: PANTOprazole SOD 40 MG TAB PO SCH (08:51)
[2017-09-24] MEDS: MULTIVITAMIN TAB PO SCH (08:51)
[2017-09-24] MEDS: ESCITALOPRAM OXALATE 10 MG TAB PO SCH (08:51)
[2017-09-24] MEDS: CALCIUM 600MG + VIT D 400 IU TAB PO SCH (08:51)
[2017-09-24] MEDS: METOPROLOL TARTRATE 25 MG TAB PO SCH ×2 (08:51→21:35)
[2017-09-24] MEDS: TOCOPHERYL, DL-ALPHA 400 INTER.UNIT CAP PO SCH (08:52)
[2017-09-24 08:56] LABS: BUN/CREATININE RATIO 37.1 (10-20); CALCIUM 8.5 mg/dl (8.5-10.1); CREATININE 0.75 mg/dl (0.60-1.40); POTASSIUM 3.9 mmol/L (3.5-5.1)
--- NOTE | 2017-09-24 08:59 | Anesthesiology Progress Note ---
Anesthesia Post Op Note Date & Time Sep 24, 2017 at 08:58 Vital Signs Pain Intensity: 0.0 Vital Signs Past 12 Hours Date Time Temp Pulse Resp B/P (MAP) Pulse Ox O2 Delivery O2 Flow Rate FiO2 09/24/17 08:49 68 108/58 (75) 09/24/17 07:55 36.7 74 15 103/58 (73) 92 Nasal Cannula 2.0 09/24/17 03:22 36.6 70 17 103/60 (74) 95 Nasal Cannula 3.0 Humidified Oxygen 09/24/17 01:30 36.5 70 16 103/66 (78) 95 Nasal Cannula 3.0 Humidified Oxygen 09/24/17 00:30 36.9 69 17 95/57 (70) 96 Nasal Cannula 3.0 Humidified Oxygen 09/24/17 00:20 97 Nasal Cannula 3.0 Humidified Oxygen 09/23/17 23:30 36.9 69 17 113/60 (77) 95 Nasal Cannula 3.0 Humidified Oxygen 09/23/17 22:59 37.1 72 18 147/59 (88) 96 Nasal Cannula 3.0 Humidified Oxygen 09/23/17 22:33 97 Nasal Cannula 3.0 09/23/17 22:32 36.3 81 18 132/69 (90) 97 Nasal Cannula 3.0 Humidified Oxygen 09/23/17 22:10 36.2 76 16 138/64 94 Nasal Cannula 2 09/23/17 22:00 75 16 130/63 92 Nasal Cannula 2 09/23/17 21:50 75 16 137/61 99 Nasal Cannula 4 09/23/17 21:44 36.4 74 16 118/59 100 Nasal Cannula 4 Notes Mental Status: alert / awake / arousable, participated in evaluation Pt Amnestic to Procedure: Yes Nausea / Vomiting: adequately controlled Pain: adequately controlled Airway Patency, RR, SpO2: stable & adequate BP & HR: stable & adequate Hydration State: stable & adequate Neuraxial Anesthesia: sensory block resolved Anesthetic Complications: no major complications apparent
--- NOTE | 2017-09-24 09:05 | Cardiology Follow-Up ---
Subjective General Date of Service: Sep 24, 2017. History of Present Illness The patient is a 82 year old male with right hip Fracture Allergies Coded Allergies: Morphine (Verified Adverse Reaction, Mild, HEADACHE, 03/22/16) Social History Smoking Status: Never Smoker Hx Tobacco Use In Past Year?: No Hx Alcohol Use - Type And Amou: Yes (Wine) Hx Substance Use - Type And Am: No Problem List Medical Problems: (1) Cough Status: Acute (2) Elevated troponin Status: Acute (3) Epistaxis Status: Acute (4) Fall Status: Acute (5) Febrile neutropenia Status: Acute (6) Femur fracture, right Status: Acute (7) Nonspecific ST-T wave electrocardiographic changes Status: Acute (8) Pneumonia Status: Acute (9) Rigors Status: Acute (10) Throat cancer Status: Acute Review of Systems Respiratory: No cough, No shortness of breath, No dyspnea at rest Cardiac: No chest pain, No edema, No palpitations Additional ROS Details: Still with severe Hip Pain Physical Exam Vital Signs Last Vital Signs Documentation Date Time Temp Pulse Resp B/P (MAP) Pulse Ox O2 Delivery O2 Flow Rate FiO2 09/24/17 08:49 68 108/58 (75) 09/24/17 07:55 36.7 15 92 Nasal Cannula 2.0 Physical Exam Constitutional: General Apperance: heathly-appearing Level of Distress: mild distress, acutely ill Lungs: Respiratory effort: no dyspnea Auscultation: breath sounds normal, no wheezing, no rales/crackles, no rhonchi Cardiovascular: Heart Auscultation: RRR, no rubs, no gallops, I/ QUETA (early peak) Peripheral Pulses: Carotid Pulse: normal on the left, normal on the right Abdomen: Bowel Sounds: normal Inspection & Palpation: soft, non-distended, no tenderness, guarding & rebound Extremities: no edema Assessment and Plan Assessment and Plan IMPRESSION: 1. Asymptomatic elevation of troponin with abnormal ECG, likely supply/demand mismatch in the context of known coronary artery disease. 2. Coronary artery disease, occluded right/borderline left disease on catheterization 2015. 3.POD #1 s/p Hip repair due to right hip fracture secondary to a Fall ( no palps and NO LOC) 4. History of carotid disease, no remaining significant stenoses after left endarterectomy. 5. History of hypertension 6. Good functional status prior to recent fall--20K steps, using push mower, climbing stairs without angina 7. Anemia/Acute blood loss--? all in Hip--Hgb down 8.6 this am Echo (normal LV fxn and no RWMA) and serial EKG's No anginal sx's this am, no CHF signs Poor PO intake; continue IVF for now but once improves d/c--? this PM Significant Post op hip pain uncontrolled by CARE WORKER pump. Continue BB Continue to Monitor closely after SX Keep HGB >9 and follow closely Incentive spirometry Laboratory Results Last 24 Hours Test 09/24/17 08:15 White Blood Count 5.54 K/uL Red Blood Count 2.77 M/uL Hemoglobin 8.6 g/dL Hematocrit 26.0 % Mean Corpuscular Volume 93.9 fL Mean Corpuscular Hemoglobin 31.0 pg Mean Corpuscular Hemoglobin Concent 33.1 g/dl RDW Standard Deviation 41.6 fL RDW Coefficient of Variation 12.1 % Platelet Count 138 K/uL Mean Platelet Volume 9.5 fL Sodium Level 137 mmol/L Potassium Level 3.9 mmol/L Chloride Level 102 mmol/L Carbon Dioxide Level 30 mmol/L Anion Gap 5.0 mmol/L Blood Urea Nitrogen 28 mg/dl Creatinine 0.75 mg/dl Est Creatinine Clear Calc Drug Dose 77.3 ml/min Estimated GFR () 99.7 Estimated GFR (Non- 86.0 BUN/Creatinine Ratio 37.1 Random Glucose 164 mg/dl Calcium Level 8.5 mg/dl
[2017-09-24] MEDS: ACETAMINOPHEN 325 MG TAB PO PRN (10:30)
[2017-09-24] MEDS: ENOXAPARIN 40 MG/0.4 ML SYR SQ SCH (10:35)
--- NOTE | 2017-09-24 17:24 | Progress Note ---
Subjective Date of Service: Sep 24, 2017. Subjective pt is accompanied by his at bedside, he is doing well but feeling tired today, pain control is fairly well. Ortho is pleased with his operative outcome , pt does have significant thigh swelling likely from post op inflammation and some bleeding Problem List Medical Problems: (1) Cough Status: Acute (2) Elevated troponin Status: Acute (3) Epistaxis Status: Acute (4) Fall Status: Acute (5) Febrile neutropenia Status: Acute (6) Femur fracture, right Status: Acute (7) Nonspecific ST-T wave electrocardiographic changes Status: Acute (8) Pneumonia Status: Acute (9) Rigors Status: Acute (10) Throat cancer Status: Acute Review of Systems Constitutional: + weakness, + fatigue, No fever, No chills Respiratory: No cough, No sputum Cardiac: No chest pain, No orthopnea Abdomen: No pain, No nausea Musculoskeletal: + joint pain, + muscle pain, + swelling Neurologic: + weakness, No memory loss, No paralysis Objective Vital Signs Date Time Temp Pulse Resp B/P (MAP) Pulse Ox O2 Delivery O2 Flow Rate FiO2 09/24/17 15:29 36.5 70 16 118/71 (87) 95 Humidified Oxygen 1.0 09/24/17 11:20 36.5 57 15 92/54 (67) 100 Nasal Cannula 2.0 09/24/17 08:49 68 108/58 (75) 09/24/17 08:03 92 Humidified Oxygen 2.0 09/24/17 07:55 36.7 74 15 103/58 (73) 92 Nasal Cannula 2.0 09/24/17 03:22 36.6 70 17 103/60 (74) 95 Nasal Cannula 3.0 Humidified Oxygen 09/24/17 01:30 36.5 70 16 103/66 (78) 95 Nasal Cannula 3.0 Humidified Oxygen 09/24/17 00:30 36.9 69 17 95/57 (70) 96 Nasal Cannula 3.0 Humidified Oxygen 09/24/17 00:20 97 Nasal Cannula 3.0 Humidified Oxygen 09/23/17 23:30 36.9 69 17 113/60 (77) 95 Nasal Cannula 3.0 Humidified Oxygen 09/23/17 22:59 37.1 72 18 147/59 (88) 96 Nasal Cannula 3.0 Humidified Oxygen 09/23/17 22:33 97 Nasal Cannula 3.0 09/23/17 22:32 36.3 81 18 132/69 (90) 97 Nasal Cannula 3.0 Humidified Oxygen 09/23/17 22:10 36.2 76 16 138/64 94 Nasal Cannula 2 09/23/17 22:00 75 16 130/63 92 Nasal Cannula 2 09/23/17 21:50 75 16 137/61 99 Nasal Cannula 4 09/23/17 21:44 36.4 74 16 118/59 100 Nasal Cannula 4 09/23/17 18:50 37.1 79 18 140/71 (94) 95 Nasal Cannula 2 Physical Exam General Appearance: WD/WN, + mild distress Eyes: PERRL, EOMI Neck: supple, no JVD Respiratory/Chest: chest non-tender, + pertinent finding (some mild basilar rales possibly consistent with ateletasis) Abdomen: non tender, soft Neurologic/Psychiatric: alert, oriented x 3 Skin: normal color, warm/dry Laboratory Results Last 24 Hours Test 09/24/17 08:15 White Blood Count 5.54 K/uL Red Blood Count 2.77 M/uL Hemoglobin 8.6 g/dL Hematocrit 26.0 % Mean Corpuscular Volume 93.9 fL Mean Corpuscular Hemoglobin 31.0 pg Mean Corpuscular Hemoglobin Concent 33.1 g/dl RDW Standard Deviation 41.6 fL RDW Coefficient of Variation 12.1 % Platelet Count 138 K/uL Mean Platelet Volume 9.5 fL Sodium Level 137 mmol/L Potassium Level 3.9 mmol/L Chloride Level 102 mmol/L Carbon Dioxide Level 30 mmol/L Anion Gap 5.0 mmol/L Blood Urea Nitrogen 28 mg/dl Creatinine 0.75 mg/dl Est Creatinine Clear Calc Drug Dose 77.3 ml/min Estimated GFR () 99.7 Estimated GFR (Non- 86.0 BUN/Creatinine Ratio 37.1 Random Glucose 164 mg/dl Calcium Level 8.5 mg/dl Assessment and Plan 82yo male with a right subtrochanteric femur fracture, has significant right thigh swelling and post op acute blood loss anemia right hip fracture -post op 09/23 with femur claudio and femoral neck pining also, pain control - cont SHERIFF DEPUT[employer], consider adjustment or adding a low amount of basal. acute blood loss anemia, now in 8 gm range, continues without cardiac symptoms, will recheck in evening of 12/5 and if <= 7.9 will transfuse EKG changes( ST segment depressions I/AVL and V4-V6) and elevated troponin, but he had no clinical acs symptoms. Echo w/o wall motion abnormalities. thus n surgery was performed and thus far without cardiac issue BPH/h/o bladder ca - continue dual therapy watch for post op urinary retention hyperlipidemia - continue statin. . DVT proph -lovenox chosen by orthopedics. Continued [facility] stay due to: inadequate po fluid intake, inadequate oral pain control, voiding difficulties, ambulation difficulties, multiple IV medications needed, home environment unsafe for pt Discharge planning: uncertain
[2017-09-24] MEDS ORDERED: FUROSEMIDE INJ 20 MG in SYRINGE 0 ML IV PRN (17:30)
[2017-09-24 17:56] LABS: HEMATOCRIT 25.5 % (42-52)
[2017-09-24] MEDS: DOCUSATE SODIUM/SENNA 50/8.6MG TAB PO SCH (21:00)
[2017-09-24] MEDS: TAMSULOSIN HCL 0.4 MG CAP PO SCH (21:17)
[2017-09-24] MEDS: ZOLPIDEM TARTRATE 5 MG TAB PO PRN (21:34)
[2017-09-24] MEDS: FINASTERIDE 5 MG TAB PO SCH (21:53)
[2017-09-25] MEDS ORDERED: NURSING DECISION MEDICATION ORDER SCH (02:15)
[2017-09-25 03:06] VITALS: BP 105/65; PULSE 77; TEMP 36.9; O2SAT 95
[2017-09-25 06:58] VITALS: BP 115/69; PULSE 82; TEMP 36.8; O2SAT 96
--- NOTE | 2017-09-25 07:10 | PROGRESS NOTE ---
DATE: 09/25/2017 CHIEF COMPLAINT: Status post IM nail of the right femur postoperative day #2. PROGRESS: Dm was seen and examined at bedside today. Overall, he is doing fairly well. His pain is controlled. He was ambulating some yesterday with therapy but he only went about 5 feet, mostly due to leg soreness. His Rodas has been discontinued and his dressing has been removed. PHYSICAL EXAMINATION: The incisions are clean and dry. There are no signs of drainage. His leg lengths are equal. He has active dorsiflexion and plantarflexion of his right ankle. DATA: He has an H&H today of 8.6 and 25.5. His vital signs are stable on 1 liter. He is voiding on his own and has had 3 bowel movements. IMPRESSION: Status post IM nail of the right femur, postop day #2. PLAN: At this point, he is doing fairly well. He can ambulate a little more today with physical therapy. We will keep working with pain control. He is orthopedically stable for discharge to a rehab facility. I will see him in my office 10-14 days from the day of surgery. Office phone number is [phone]. We will continue Lovenox 40 mg subQ for 4 weeks for DVT prophylaxis.
[2017-09-25] MEDS: HYDROmorphone HCL 0.5MG/ML 50 ML CASSETTE IV PRN (07:13)
[2017-09-25 07:20] VITALS: O2SAT 96
--- NOTE | 2017-09-25 09:04 | DIAGNOSTIC IMAGING REPORT ---
CHEST ONE VIEW PORTABLE CLINICAL HISTORY: cough COMPARISON STUDY: September 21, 2017 FINDINGS: The cardiac and mediastinal contours remain stable. There are patchy right mid and lower lung zone airspace opacities, suspicious for pneumonia given history of cough. Clinical and radiographic follow-up is recommended IMPRESSION: Interval development of right lung airspace opacities, suspicious for pneumonia, given the clinical history of cough. Clinical and radiographic follow-up is recommended. Electronically signed by: Yosef Beebe M.D. 09/25/2017 9:03 AM Dictated Date/Time: 09/25/2017 9:01 AM
[2017-09-25 09:21] VITALS: BP 106/64; PULSE 78
[2017-09-25] MEDS: ATORVASTATIN 40 MG TAB PO SCH (09:23)
[2017-09-25] MEDS: ESCITALOPRAM OXALATE 10 MG TAB PO SCH (09:23)
[2017-09-25] MEDS: MULTIVITAMIN TAB PO SCH (09:24)
[2017-09-25] MEDS: PANTOprazole SOD 40 MG TAB PO SCH (09:24)
[2017-09-25] MEDS: METOPROLOL TARTRATE 25 MG TAB PO SCH ×2 (09:24→21:00)
[2017-09-25] MEDS: ENOXAPARIN 40 MG/0.4 ML SYR SQ SCH (09:25)
[2017-09-25] MEDS: TOCOPHERYL, DL-ALPHA 400 INTER.UNIT CAP PO SCH (09:25)
--- NOTE | 2017-09-25 09:26 | Cardiology Follow-Up ---
Subjective General Date of Service: Sep 25, 2017. Pt evaluation today including: conversation w/ patient, chart review, lab review, review of studies History of Present Illness The patient is a 82 year old male right hip fx Allergies Coded Allergies: Morphine (Verified Adverse Reaction, Mild, HEADACHE, 03/22/16) Social History Smoking Status: Never Smoker Hx Tobacco Use In Past Year?: No Hx Alcohol Use - Type And Amou: Yes (Wine) Hx Substance Use - Type And Am: No Problem List Medical Problems: (1) Cough Status: Acute (2) Elevated troponin Status: Acute (3) Epistaxis Status: Acute (4) Fall Status: Acute (5) Febrile neutropenia Status: Acute (6) Femur fracture, right Status: Acute (7) Nonspecific ST-T wave electrocardiographic changes Status: Acute (8) Pneumonia Status: Acute (9) Rigors Status: Acute (10) Throat cancer Status: Acute Review of Systems Respiratory: + cough, + sputum (brown), No shortness of breath, No dyspnea at rest Cardiac: No chest pain, No edema, No palpitations Physical Exam Vital Signs Last Vital Signs Documentation Date Time Temp Pulse Resp B/P (MAP) Pulse Ox O2 Delivery O2 Flow Rate FiO2 09/25/17 06:58 36.8 82 19 115/69 (84) 96 1.0 09/25/17 03:06 Nasal Cannula Humidified Oxygen Physical Exam Constitutional: General Apperance: heathly-appearing Level of Distress: mild distress, acutely ill Lungs: Respiratory effort: no dyspnea Auscultation: no wheezing, no rales/crackles, no rhonchi, decreased breath sounds (right base) Cardiovascular: Heart Auscultation: RRR, no rubs, no gallops, I/ QUETA (early peak) Peripheral Pulses: Carotid Pulse: normal on the left, normal on the right Abdomen: Bowel Sounds: normal Inspection & Palpation: soft, non-distended, no tenderness, guarding & rebound Extremities: no edema Assessment and Plan Assessment and Plan IMPRESSION: 1. Asymptomatic elevation of troponin with abnormal ECG, likely supply/demand mismatch in the context of known coronary artery disease. 2. Coronary artery disease, occluded right/borderline left disease on catheterization 2015. 3.POD #2 s/p Hip repair due to right hip fracture secondary to a Fall ( no palps and NO LOC) 4. History of carotid disease, no remaining significant stenoses after left endarterectomy. 5. History of hypertension 6. Good functional status prior to recent fall--20K steps, using push mower, climbing stairs without angina 7. Anemia/Acute blood loss-- Echo (normal LV fxn and no RWMA) and serial EKG's No anginal sx's this am, no CHF signs PO intake improved; Continue BB upon d/c Continue to Monitor closely after SX Hgb 8 this am; No cardiac sx's --Patient does not want transfusion and I would hold off for now Incentive spirometry CXR c/w pneumonia this am and pt with thick brown sputum--had cold and cough prior to fall--cover for CAP--d/w nursing to d/w hospitalists Laboratory Results Last 24 Hours Test 09/24/17 17:40 09/25/17 08:56 Hemoglobin 8.6 g/dL 8.0 g/dL Hematocrit 25.5 % 24.0 %
[2017-09-25] MEDS: CALCIUM 600MG + VIT D 400 IU TAB PO SCH (09:32)
[2017-09-25] MEDS: LEVOFLOXACIN 750 MG TAB PO SCH (12:12)
[2017-09-25] MEDS ORDERED: NURSING VERBAL MED ORDER ONE (14:15)
[2017-09-25] MEDS: OXYCODONE HCL IR 5 MG TAB (IMMEDIATE RELEASE) PO PRN (14:38)
[2017-09-25 15:02] VITALS: BP 109/58; PULSE 86; TEMP 37.4; O2SAT 90
[2017-09-25] MEDS: SODIUM CHLORIDE 0.9% 1000ML 1,000 ML IV SCH (15:48)
--- NOTE | 2017-09-25 17:43 | Progress Note ---
Subjective Date of Service: Sep 25, 2017. Subjective this pt is doing well, has cough of brown sputum and some some lower room air oxygen. otherwise blood count has remained stable despite fairly significant right thigh swelling Problem List Medical Problems: (1) Cough Status: Acute (2) Elevated troponin Status: Acute (3) Epistaxis Status: Acute (4) Fall Status: Acute (5) Febrile neutropenia Status: Acute (6) Femur fracture, right Status: Acute (7) Nonspecific ST-T wave electrocardiographic changes Status: Acute (8) Pneumonia Status: Acute (9) Rigors Status: Acute (10) Throat cancer Status: Acute Review of Systems Constitutional: + weakness, + fatigue, No fever, No chills Respiratory: + cough, + sputum, + shortness of breath, + dyspnea on exertion Cardiac: + edema, No chest pain, No orthopnea Abdomen: No pain, No nausea, No constipation Musculoskeletal: + joint pain, + muscle pain, + swelling Neurologic: + weakness, No memory loss, No paralysis Psychiatric: No depression symptoms, No anhedonism Objective Vital Signs Date Time Temp Pulse Resp B/P (MAP) Pulse Ox O2 Delivery O2 Flow Rate FiO2 09/25/17 15:30 Room Air 09/25/17 15:02 37.4 86 16 109/58 (75) 90 Room Air 09/25/17 09:21 78 106/64 (78) 09/25/17 07:20 96 Nasal Cannula 1.0 09/25/17 06:58 36.8 82 19 115/69 (84) 96 1.0 09/25/17 03:06 36.9 77 17 105/65 (78) 95 Nasal Cannula 1.0 Humidified Oxygen 09/25/17 00:25 Nasal Cannula 1.0 09/24/17 22:54 36.4 74 16 107/64 (78) 95 Nasal Cannula 1.0 09/24/17 21:30 85 114/63 (80) Physical Exam General Appearance: WD/WN, + mild distress Eyes: PERRL, EOMI Respiratory/Chest: chest non-tender, + rales (bibasilar R>L) Cardiovascular: regular rate, rhythm, no murmur Abdomen: normal bowel sounds, non tender, soft Extremities: no pedal edema, no calf tenderness, + pertinent finding ( significant thigh edema) Neurologic/Psychiatric: alert, oriented x 3 Laboratory Results Last 24 Hours Test 09/25/17 08:56 Hemoglobin 8.0 g/dL Hematocrit 24.0 % Assessment and Plan 82yo male with a right subtrochanteric femur fracture, has significant right thigh swelling and post op acute blood loss anemia, has remained stable in 8.6 gm range right hip fracture -post op 09/23 with femur angélica and femoral neck pining also, pain control - pt off [employer] and requests oral med, will also continue to watch for constipation from meds so far has had none acute blood loss anemia, now in 8.6 gm range, continues without cardiac symptoms , no transfusion needed at this time EKG changes( ST segment depressions I/AVL and V4-V6) and elevated troponin, but he continues with no clinical symptoms. Echo w/o wall motion abnormalities. thus surgery was performed and pt is expecting rehab BPH/h/o bladder ca - continue dual therapy watch no post op urinary retention yet hyperlipidemia - continue statin. . DVT proph -lovenox chosen by orthopedics. Continued [facility] stay due to: inadequate po fluid intake, inadequate oral pain control, voiding difficulties, ambulation difficulties, multiple IV medications needed, home environment unsafe for pt Discharge planning: uncertain
[2017-09-25] MEDS: FINASTERIDE 5 MG TAB PO SCH (21:02)
[2017-09-25] MEDS: TAMSULOSIN HCL 0.4 MG CAP PO SCH (21:03)
[2017-09-25] MEDS: DOCUSATE SODIUM/SENNA 50/8.6MG TAB PO SCH (21:03)
[2017-09-25] MEDS: ZOLPIDEM TARTRATE 5 MG TAB PO PRN (21:04)
[2017-09-25 23:23] VITALS: BP 115/69; PULSE 88; TEMP 36.6; O2SAT 93
[2017-09-26] VITALS (8 sets, daily range): BP systolic 102–127; BP diastolic 62–71; PULSE 70–86; TEMP 36.4–37.2; O2SAT 91–96
[2017-09-26 06:38] LABS: HEMATOCRIT 23.2 % (42-52); MEAN CELL VOLUME 92.8 fL (80-100); MEAN CORPUSCULAR HEMOGLOBIN 31.2 pg (25-34); MEAN CORPUSCULAR HGB CONC 33.6 g/dl (32-36); MEAN PLATELET VOLUME 8.9 fL (7.4-10.4); PLATELET COUNT 184 K/uL (130-400); WHITE BLOOD COUNT 6.97 K/uL (4.8-10.8)
[2017-09-26 07:13] LABS: CREATININE 0.75 mg/dl (0.60-1.40)
[2017-09-26] MEDS: OXYCODONE HCL IR 5 MG TAB (IMMEDIATE RELEASE) PO PRN ×2 (07:42→13:45)
[2017-09-26] MEDS: ATORVASTATIN 40 MG TAB PO SCH (08:57)
[2017-09-26] MEDS: ESCITALOPRAM OXALATE 10 MG TAB PO SCH (08:57)
[2017-09-26] MEDS: METOPROLOL TARTRATE 25 MG TAB PO SCH ×2 (08:57→21:21)
[2017-09-26] MEDS: MULTIVITAMIN TAB PO SCH (08:58)
[2017-09-26] MEDS: TOCOPHERYL, DL-ALPHA 400 INTER.UNIT CAP PO SCH (08:58)
[2017-09-26] MEDS: CALCIUM 600MG + VIT D 400 IU TAB PO SCH (08:58)
[2017-09-26] MEDS: PANTOprazole SOD 40 MG TAB PO SCH (08:58)
[2017-09-26] MEDS: ACETAMINOPHEN 325 MG TAB PO PRN (09:02)
[2017-09-26] MEDS: LEVOFLOXACIN 750 MG TAB PO SCH (10:41)
[2017-09-26] MEDS: ENOXAPARIN 40 MG/0.4 ML SYR SQ SCH (10:42)
[2017-09-26] MEDS ORDERED: ZOLPIDEM TARTRATE 5 MG TAB PO PRN (12:30)
--- NOTE | 2017-09-26 13:35 | Progress Note ---
Subjective Date of Service: Sep 26, 2017. Subjective this pt was feeling slightly fatigued this am, feels better with blood transfusion, leg feels improved and less swelling Problem List Medical Problems: (1) Cough Status: Acute (2) Elevated troponin Status: Acute (3) Epistaxis Status: Acute (4) Fall Status: Acute (5) Febrile neutropenia Status: Acute (6) Femur fracture, right Status: Acute (7) Nonspecific ST-T wave electrocardiographic changes Status: Acute (8) Pneumonia Status: Acute (9) Rigors Status: Acute (10) Throat cancer Status: Acute Review of Systems Constitutional: No fever, No chills Respiratory: + cough, No sputum, No shortness of breath, No dyspnea on exertion Cardiac: No chest pain, No orthopnea, No PND, No edema Abdomen: No pain, No nausea, No vomiting, No diarrhea Musculoskeletal: + joint pain, + muscle pain, + swelling Male : No dysuria, No urinary frequency Objective Vital Signs Date Time Temp Pulse Resp B/P (MAP) Pulse Ox O2 Delivery O2 Flow Rate FiO2 09/26/17 11:45 37.0 73 116/62 95 09/26/17 11:15 36.5 85 18 127/63 09/26/17 10:45 36.4 70 18 113/69 09/26/17 10:28 36.9 70 16 102/71 09/26/17 10:11 37.2 71 18 103/65 09/26/17 08:00 Room Air 09/26/17 06:55 37.2 86 19 120/71 (87) 94 Room Air 09/25/17 23:27 Room Air 09/25/17 23:23 36.6 88 16 115/69 (84) 93 Room Air 09/25/17 15:30 Room Air 09/25/17 15:02 37.4 86 16 109/58 (75) 90 Room Air Physical Exam General Appearance: WD/WN, + mild distress Eyes: PERRL, EOMI Respiratory/Chest: chest non-tender, lungs clear, normal breath sounds Cardiovascular: regular rate, rhythm, no murmur Abdomen: normal bowel sounds, non tender, soft Extremities: + pedal edema, + swelling Neurologic/Psychiatric: alert, oriented x 3 Laboratory Results Last 24 Hours Test 09/26/17 06:26 09/26/17 06:27 White Blood Count 6.97 K/uL Red Blood Count 2.50 M/uL Hemoglobin 7.8 g/dL Hematocrit 23.2 % Mean Corpuscular Volume 92.8 fL Mean Corpuscular Hemoglobin 31.2 pg Mean Corpuscular Hemoglobin Concent 33.6 g/dl RDW Standard Deviation 41.7 fL RDW Coefficient of Variation 12.2 % Platelet Count 184 K/uL Mean Platelet Volume 8.9 fL Nucleated RBC Absolute Count (auto) 0.04 K/uL Nucleated Red Blood Cells % 0.6 % Creatinine 0.75 mg/dl Est Creatinine Clear Calc Drug Dose 77.3 ml/min Estimated GFR () 99.7 Estimated GFR (Non- 86.0 Assessment and Plan 82yo male with a right subtrochanteric femur fracture, has significant right thigh swelling and post op acute blood loss anemia, has remained stable in 8.6 gm range right hip fracture -post op 09/23 with femur angélica and femoral neck pining also, pain control - pt off [employer] and requests increased dose of oral med, will also continue to watch for constipation from meds so far so good acute blood loss anemia, now lower, will transfuse i U prbc 09/26 although continues without cardiac symptoms, EKG changes( ST segment depressions I/AVL and V4-V6) and elevated troponin,no chest pain despite anemia, Echo w/o wall motion abnormalities. thus surgery was performed and pt is expecting rehab BPH/h/o bladder ca - continue dual therapy pt notes urinating well hyperlipidemia - continue statin. . DVT proph -lovenox chosen by orthopedics. Continued [facility] stay due to: inadequate po fluid intake, inadequate oral pain control, voiding difficulties, ambulation difficulties, multiple IV medications needed, home environment unsafe for pt Discharge planning: uncertain
[2017-09-26] MEDS ORDERED: NURSING VERBAL MED ORDER ONE (14:45)
[2017-09-26] MEDS: ACETAMINOPHEN 500 MG TAB PO PRN (15:10)
[2017-09-26] MEDS: DOCUSATE SODIUM/SENNA 50/8.6MG TAB PO SCH (21:00)
[2017-09-26] MEDS: FINASTERIDE 5 MG TAB PO SCH (21:19)
[2017-09-26] MEDS: TAMSULOSIN HCL 0.4 MG CAP PO SCH (21:19)
[2017-09-27 07:45] VITALS: BP 112/62; PULSE 80; TEMP 37.2; O2SAT 93
[2017-09-27] MEDS: ACETAMINOPHEN 500 MG TAB PO PRN (07:51)
[2017-09-27] MEDS ORDERED: LVNIS40 SQ (08:02)
[2017-09-27] MEDS ORDERED: LVQ750 PO (08:02)
[2017-09-27] MEDS ORDERED: RXC5 PO (08:02)
[2017-09-27] MEDS ORDERED: LPR25 PO (08:02)
[2017-09-27] MEDS ORDERED: SENN8.6T7 PO (08:02)
--- NOTE | 2017-09-27 08:07 | Discharge Instructions ---
Discharge Instructions Date of Service Sep 27, 2017. Admission Reason for Admission: Fracture Of Right Hip Requiring Operative Repair Discharge Discharge Diagnosis / Problem: right femur fracture, abnormal ECG, pneumonia Discharge Goals Goal(s): Diagnostic testing, Therapeutic intervention Activity Recommendations Activity Level: Assistance Required Therapies: Physical Therapy, Occupational Therapy . Additional Information Patient informed of condition: Yes Advance Directives: Yes DNR: No Level of Care: Acute Rehab Communicable Disease: Yes Prognosis: Stable Rodas Catheter: No Instructions / Follow-Up Instructions / Follow-Up 82yo male with a right subtrochanteric femur fracture, has significant right thigh swelling and post op acute blood loss anemia, has remained stable in 8.6 gm range right hip fracture -post op 09/23 with femur angélica and femoral neck pining also, pain control - pt off [facility] [employer] and requests increased dose of oral med, will also continue to watch for constipation from meds acute blood loss anemia, now lower, will transfuse 1 U prbc 09/26 although continues without cardiac symptoms, EKG changes( ST segment depressions I/AVL and V4-V6) and elevated troponin,no chest pain despite anemia, Echo w/o wall motion abnormalities. thus surgery was performed BPH/h/o bladder ca - continue dual therapy pt notes urinating well hyperlipidemia - continue statin. . DVT proph -lovenox chosen by orthopedics. Current Hospital Diet Patient's current hospital diet: AHA Diet (Heart Healthy) Discharge Diet Recommended Diet: Regular Diet Procedures Procedures Performed: Right Intramedullary Nail Subtrochanteric Fracture Hip Pending Studies Studies pending at discharge: no Medical Emergencies . Who to Call and When: Medical Emergencies: If at any time you feel your situation is an emergency, please call 911 immediately. . Non-Emergent Contact Non-Emergency issues call your: Primary Care Provider, Specialist (orhtopaedics ) Call Non-Emergent contact if: temperature is above 101, your pain is unusual for you . . "Provider Documentation" section prepared by Howard Covarrubias. . Core Measure Problem Core Measures: None
[2017-09-27 08:38] LABS: HEMATOCRIT 27.4 % (42-52); MEAN CELL VOLUME 91.6 fL (80-100); MEAN CORPUSCULAR HEMOGLOBIN 30.1 pg (25-34); MEAN CORPUSCULAR HGB CONC 32.8 g/dl (32-36); MEAN PLATELET VOLUME 8.9 fL (7.4-10.4); PLATELET COUNT 232 K/uL (130-400); RED BLOOD COUNT 2.99 M/uL (4.7-6.1); WHITE BLOOD COUNT 8.85 K/uL (4.8-10.8)
[2017-09-27 09:00] VITALS: O2SAT 93
[2017-09-27] MEDS: METOPROLOL TARTRATE 25 MG TAB PO SCH (09:00)
[2017-09-27] MEDS: OXYCODONE HCL IR 5 MG TAB (IMMEDIATE RELEASE) PO PRN (09:13)
[2017-09-27] MEDS: PANTOprazole SOD 40 MG TAB PO SCH (09:14)
[2017-09-27] MEDS: CALCIUM 600MG + VIT D 400 IU TAB PO SCH (09:14)
[2017-09-27] MEDS: ESCITALOPRAM OXALATE 10 MG TAB PO SCH (09:14)
[2017-09-27] MEDS: ATORVASTATIN 40 MG TAB PO SCH (09:14)
[2017-09-27] MEDS: MULTIVITAMIN TAB PO SCH (09:14)
[2017-09-27] MEDS: TOCOPHERYL, DL-ALPHA 400 INTER.UNIT CAP PO SCH (09:15)
[2017-09-27] MEDS: ENOXAPARIN 40 MG/0.4 ML SYR SQ SCH (10:47)
[2017-09-27] MEDS: LEVOFLOXACIN 750 MG TAB PO SCH (10:48)
[2017-09-27 11:46] VITALS: BP 110/68; PULSE 70; TEMP 36.7; O2SAT 94
--- NOTE | 2017-09-27 12:47 | DIAGNOSTIC IMAGING REPORT ---
CT HEAD WITHOUT CONTRAST (CT) CLINICAL HISTORY: Persistent headache status post head trauma COMPARISON STUDY: 01/03/2016 TECHNIQUE: Axial CT of the brain is performed from the vertex to the skull base. IV contrast was not administered for this examination. A dose lowering technique was utilized adhering to the principles of ALARA. CT DOSE: 537.48 mGy.cm FINDINGS: No intra or extra-axial mass lesions are visualized. There is no CT evidence of acute cortical infarction. There is no evidence of midline shift. There is no acute hemorrhage. No calvarial fractures are visualized. There are patchy white matter hypodensities likely on a small vessel basis. 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 There is no evidence of pathologic ventricular dilatation. There is right maxillary sinus mucosal thickening and bilateral maxillary sinus air-fluid levels. IMPRESSION: 1. Inflammatory changes in the maxillary sinuses 2. No acute intracranial findings Electronically signed by: Yosef Beebe M.D. 09/27/2017 12:46 PM Dictated Date/Time: 09/27/2017 12:44 PM
--- NOTE | 2017-09-27 15:29 | Discharge Summary ---
Discharge Summary Date of Service Sep 27, 2017. Discharge Summary Admission Date: Sep 21, 2017 at 19:48 Discharge Date: Sep 27, 2017 Principal Diagnosis: traumatic right hip fracture, pneumonia, acute blood loss anemia Immunizations: Have You Had Influenza Vaccine: Yes Influenza Vaccine Date: Jul 21, 2015 History of Tetanus Vaccine?: Yes Tetanus Immunization Date: Jun 06, 2011 History of Pneumococcal: Yes Pneumococcal Date: Oct 21, 2014 History of Hepatitis B Vaccine: Unknown Consultations: Dr Pichardo will follow up for staple removal Medication Reconciliation New Medications: Enoxaparin (Enoxaparin Sodium) 40 Mg/0.4 Ml Inj 40 MG SQ Q24H, #30 DOSE Levofloxacin (Levofloxacin) 750 Mg Tab 750 MG PO DAILY@11, #7 TAB Metoprolol Tartrate (Lopressor) 25 Mg Tab 12.5 MG PO Q12, #60 TAB Oxycodone HCl (Oxycodone HCl) 5 Mg Tab 15 MG PO Q6 PRN for Pain, #30 TAB Sennosides-Docusate Sodium (Senokot S) 1 Tab Tab 2 TAB PO HS, #60 TAB Continued Medications: Aspirin (Aspirin Ec) 325 Mg Tab 325 MG PO DAILY PRN for PRN Atorvastatin (Lipitor) 80 Mg Tab 80 MG PO QAM, 0 Refills Calcium/Vitamin D (Os-Kd 500 Plus D) Tab 1 TAB PO QAM, TAB Cod Liver Oil (Cod Liver Oil 1000 mg) 1 Cap Cap 1 CAP PO QAM Coenzyme Q10 (Ubidecarenone) (Co Q-10) 150 Mg Cap 150 MG PO QAM, CAP Escitalopram (Lexapro) 10 Mg Tab 10 MG PO QAM, TAB Finasteride (Proscar) 5 Mg Tab 5 MG PO HS Fish Oil ([place]-3) 1 Ea Cap 1 CAP PO QAM, CAP Multivitamin (Multivitamin) Tab 1 TAB PO QAM, TAB Omeprazole (Prilosec) 20 Mg Capcr 20 MG PO DAILY, CAP Tamsulosin Hcl (Flomax) 0.4 Mg Cap 0.4 MG PO HS, CAP Vitamin E (Vitamin E 400 Iu) 400 Unit Cap 400 INTER.UNIT PO DAILY, CAP Zinc Gluconate (Zinc) 30 Mg Tab 3 MG PO QAM Zolpidem Tartrate (Ambien Er) 12.5 Mg Tab 6.25 MG PO HS PRN for Sleep, TAB Discharge Exam Review of Systems: Constitutional: No fever, No chills Cardiovascular: No chest pain, No orthopnea, No edema Abdomen: No pain, No nausea, No diarrhea Genitourinary - Male: No hematuria, No dysuria, No urinary frequency Neurologic: + weakness, No memory loss, No paralysis Psychiatric: No depression symptoms, No anhedonism Hospital Course 82yo male with a right subtrochanteric femur fracture, has significant right thigh swelling and post op acute blood loss anemia, has remained stable in 8.6 gm range right hip fracture -post op 09/23 with femur angélica and femoral neck pining also, pain control - pt off [employer] and requests increased dose of oral med, will also continue to watch for constipation from meds pt concerned headache maybe from fall, acute CT head prior to transfer negative for any change except for sinus inflammation, on abtx for pneumonia acute blood loss anemia, transfuse 1 U prbc 09/26 although continues without cardiac symptoms, hgb checked before transfer was 9 EKG changes( ST segment depressions I/AVL and V4-V6) and elevated troponin,no chest pain despite anemia, Echo w/o wall motion abnormalities. thus surgery was performed BPH/h/o bladder ca - continue dual therapy pt notes urinating well hyperlipidemia - continue statin. . DVT proph -lovenox chosen by orthopedics, typical duration for post hip repair , if home before complete consider home health as family not comfortable giving. Total Time Spent: Greater than 30 minutes This includes examination of the patient, discharge planning, medication reconciliation, and communication with other providers. Discharge Instructions Please refer to the electronic Patient Visit Report (Discharge Instructions) for additional information.
== END 2017-09-27 14:34 | DRG 481 ==
LOC: EDBD 14:56 → C.EDB 14:56 → C.3E 19:48 → ENRESERV 20:00
PROVIDERS: ADMIT Hospitalist; ATTEND Internal Medicine
PROC: 0QS606Z Reposition Right Upper Femur with Intramedullary Internal Fixation Device, Open Approach (ICD-10-PCS; principal; 2017-09-23 07:15)
DX: S72.21XA Displaced subtrochanteric fracture of right femur, initial encounter for closed fracture (principal); D62 Acute posthemorrhagic anemia; E78.5 Hyperlipidemia, unspecified; I25.2 Old myocardial infarction; I25.10 Atherosclerotic heart disease of native coronary artery without angina pectoris; N40.0 Benign prostatic hyperplasia without lower urinary tract symptoms; F32.9 Major depressive disorder, single episode, unspecified; E83.42 Hypomagnesemia; W11.XXXA Fall on and from ladder, initial encounter; Z79.899 Other long term (current) drug therapy; Z85.51 Personal history of malignant neoplasm of bladder

== ENCOUNTER → 2017-11-20 | Outpatient (CLI) | payer BC ==
[~2017-11-20] MED LIST changes: +ASPI325T39 PO; -ASPI81TA28 PO; +LPR25 PO; +LVNIS40 SQ; +LVQ750 PO; +PRLSR20 PO; +RXC5 PO; +SENN8.6T7 PO; +TAMS0.4C38 PO; -TAMS0.4C59 PO; -VITA400C15 PO; +VITA400C3 PO
--- NOTE | 2017-11-20 15:16 | DIAGNOSTIC IMAGING REPORT ---
CHEST 2 VIEWS ROUTINE CLINICAL HISTORY: J18.1 Pneumonia of right lower lobe due to infectious organism COMPARISON STUDY: 09/25/2017 FINDINGS: The heart is at the upper limits of normal in size. There is aortic tortuosity. There is been interval clearing of the previously identified right lung airspace opacities. There is a linear focus of atelectasis at the left lung base. There is no failure. There are no pleural effusions. IMPRESSION: No active disease in the chest. Interval clearing of the previous identified right lung airspace opacities Electronically signed by: Yosef Beebe M.D. 11/20/2017 3:15 PM Dictated Date/Time: 11/20/2017 3:14 PM
== END | disposition home or self-care (01) ==
LOC: C.RADBC 15:02
PROVIDERS: ATTEND Internal Medicine
DX: J18.9 Pneumonia, unspecified organism (principal)

== ENCOUNTER → 2018-01-24 | Outpatient (CLI) | payer BC ==
[2018-01-24 16:47] LABS: BASO % 0.4 %; BASO ABS # 0.02 K/uL (0-0.2); EOS ABS # 0.09 K/uL (0-0.5); HEMATOCRIT 45.4 % (42-52); HEMOGLOBIN 15.6 g/dL (14.0-18.0); IG# 0.01 K/uL (0.00-0.02); LYMPH % 28.8 %; LYMPH ABS # 1.31 K/uL (1.2-3.4); MEAN CELL VOLUME 89.4 fL (80-100); MEAN CORPUSCULAR HEMOGLOBIN 30.7 pg (25-34); MEAN CORPUSCULAR HGB CONC 34.4 g/dl (32-36); MEAN PLATELET VOLUME 10.3 fL (7.4-10.4); MONO % 10.3 %; MONO ABS # 0.47 K/uL (0.11-0.59); NEUT % 58.3 %; NEUT ABS # 2.65 K/uL (1.4-6.5); PLATELET COUNT 159 K/uL (130-400); RED CELL DISTRIBUTION WIDTH CV 13.2 % (11.5-14.5); RED CELL DISTRIBUTION WIDTH SD 42.3 fL (36.4-46.3); WHITE BLOOD COUNT 4.55 K/uL (4.8-10.8)
[2018-01-24 17:41] LABS: ALT/SGPT 29 U/L (12-78); AST/SGOT 27 U/L (15-37); BLOOD UREA NITROGEN 26 mg/dl (7-18); CALCIUM 9.1 mg/dl (8.5-10.1); CARBON DIOXIDE 28 mmol/L (21-32); CHOLESTEROL 210 mg/dl (0-200); GLUCOSE 104 mg/dl (70-99); SODIUM 138 mmol/L (136-145)
[2018-01-24 17:49] LABS: ALKALINE PHOSPHATASE 195 U/L (45-117); LDL CHOLESTEROL CALCULATED 98 mg/dl; TOTAL PROTEIN 7.6 gm/dl (6.4-8.2)
[2018-01-25 07:51] LABS: HEMOGLOBIN A1C 6.1 % (4.5-5.6)
== END | disposition home or self-care (01) ==
LOC: C.LABBC 13:29
PROVIDERS: ATTEND Family Medicine Adult Medicine
DX: Z86.19 Personal history of other infectious and parasitic diseases (principal); R73.01 Impaired fasting glucose; D50.8 Other iron deficiency anemias; I10 Essential (primary) hypertension

== ENCOUNTER → 2018-01-30 | Outpatient (CLI) | payer BC ==
--- NOTE | 2018-01-30 13:35 | DIAGNOSTIC IMAGING REPORT ---
CT SCAN OF THE BRAIN WITHOUT IV CONTRAST CLINICAL HISTORY: Fall. COMPARISON STUDY: CT of the brain dated 09/27/2017. TECHNIQUE: Unenhanced axial CT scan of the brain is performed from the vertex to the skull base. A dose lowering technique was utilized adhering to the principles of ALARA. CT DOSE: 788.63 mGycm FINDINGS: Brain parenchyma: There are age-related involutional changes noting mild subcortical and periventricular microangiopathic change. A tiny chronic lacunar infarct is seen in the left caudate head. There is no hemorrhage, mass effect, or evidence of acute territorial ischemia by CT criteria. Vu-white matter is preserved. No extra-axial fluid collection is seen. Ventricles, sulci, cisterns: Prominent secondary to involutional change. Intracranial vasculature: There is atherosclerotic calcification of the cavernous carotid and vertebral arteries. Calvarium: The skeletal structures are osteopenic. No depressed calvarial fracture is seen. Sinuses and mastoids: Mild mucosal thickening is seen within the maxillary antra, the right frontal sinus, and ethmoid sinuses. The mastoid air cells are well pneumatized. Orbits: The bony orbits are grossly intact. IMPRESSION: There is no hemorrhage, mass effect, or evidence of acute territorial ischemia by CT criteria. Electronically signed by: Milan Rivera M.D. 01/30/2018 1:34 PM Dictated Date/Time: 01/30/2018 1:30 PM
== END | disposition home or self-care (01) ==
LOC: C.CTS 13:03
PROVIDERS: ATTEND Family Medicine Adult Medicine
DX: R29.6 Repeated falls (principal)

== ENCOUNTER 2020-04-03 09:39 | Inpatient (IN) ==
[2020-04-03] MEDS ORDERED: SODIUM CHLORIDE 0.9% 1000ML 1,000 ML IV SCH (10:00)
--- NOTE | 2020-04-03 10:06 | Emergency Department Note ---
Impression & Plan Hypoxia, Near syncope, Nausea ED Provider Note NAME: LILY SALAS AGE: 84 SEX: M ARRIVES VIA: Ambulance INFORMANT: [Patient] ED PROVIDER(S): Selwyn Etienne MD CHIEF COMPLAINT: Lightheadedness PLAN: Disposition: Admitted Condition: [Good] MEDICAL DECISION MAKING: The patient presented due to lightheadedness that was abrupt in onset. He initially stated he felt like he was in good health and had no issues yesterday when he was walking and exerting himself. The patient was found to have some mild hypoxia for EMS as well as for us here. This responded well to nasal cannula oxygen. He had a nonfocal neurologic examination. He had some associated nausea which resolved with Zofran by EMS. The patient had no obvious changes on his ECG. Head CT was negative. His chest x-ray did show some increased markings which could go along with his hypoxia. This prompted CT imaging to be performed to further evaluate his lung parenchyma. The patient's troponin was within normal limits. BNP did not suggest CHF. CBC and chemistry panel were unremarkable. The patient was doing well on multiple reassessments. His did present to the emergency department. On further discussion the patient has had several episodes recently of coughing fits that they attributed to allergies. He has not had any fever. No contact with anyone with novel coronavirus. CT imaging was performed and revealed abnormal pulmonary architecture and nodularity concerning for a infectious versus inflammatory pneumonitis. Again the patient does not have any fever or leukocytosis. He has no productive cough. The exact etiology of this finding is not obvious at this point. The patient will need further management work-up in the hospital. A consultation was made with Dr. Henderson of the [facility] hospitalist service. The patient was evaluated in the ER and admitted for further management. Triage Nursing notes reviewed and agree them. [Additional history obtained from] EMS [Prior medical records reviewed] Last wellness visit was uneventful. Vital Signs: reviewed and remarkable for hypoxia, HTN Differential diagnosis: Infection, dehydration, metabolic abnormality, hypo/hyperglycemia, electrolyte disturbance, anemia, hypoxia, cardiac sources, intracerebral event, toxicologic, neurologic, as well as other pathologies. ER treatment provided: Supplemental oxygen NSS hydration Diagnostics interpreted by me: ECG: Rate:70 Rhythm:Normal sinus Concan:Normal QRS:Normal ST segements:No elevation or depression. LVH with repolarization abnormality Other:No PACs or PVCs. No change from 09/23/2017 Cardiac Monitoring: Cardiac monitoring ordered by me: The patient was placed on continuous cardiac monitoring and observed. It revealed a normal sinus rhythm at 75 beats per minute without ectopy or evidence of dysrhythmia. Laboratory studies: [See below] unremarkable CBC and chemistry panel. Troponin is within normal limits. BNP is within normal limits as well. Imaging studies: Chest x-ray. Findings: Cardiomegaly with pulmonary vascular congestion and mild interstitial coarsening which may be secondary to pulmonary edema or atypical pneumonitis. Head CT: A noncontrast CT scan of the head was performed and was negative for tumor, fracture, intracranial hemorrhage, or other acute pathology. CT angiogram of the chest was performed and revealed: 1. Cardiomegaly with pulmonary edema and trace pleural effusions. No evidence of pulmonary thromboembolic disease. 2. Multiple scattered solid pulmonary nodules, most pronounced in the left upper lobe and lingula measuring up to 4 mm are nonspecific however favor an infectious or inflammatory process. 3. Dilation of the pulmonary artery suggests pulmonary arterial hypertension. 4. Mild mediastinal adenopathy, likely reactive. 5. Hepatic steatosis. 6. Colonic diverticulosis. 7. Cholelithiasis. Consultation(s): [facility] Hospitalist service HPI:The patient is a 84 year old male who presents to the Emergency Room with complaints of lightheadedness and near syncope. This started suddenly this morning while cooking breakfast and is waxing and waning. The patient also notes the following associated symptoms, nausea, generalized weakness, facial flushing, minimal dizziness. The patient has been given zofran by EMS for relieving factors. Current pain is rated as 0/10. Pt denied room spinning sensation. He notes walking 6 miles yesterday without difficulty. EMS noted hypoxia into the mid 80's. Pt complains of no respiratory symptoms, no sick co ntacts. Pt denies LOC, headache, fevers, chills, diaphoresis, visual changes, neck pain, chest pain, breathing difficulties, vomiting, abdominal pain, back pain, melena, hematochezia, urinary symptoms, numbness, lymphadenopathy, rash, or other complaints. ROS: See above HPI for pertinent positives & negatives. A total of [10] systems reviewed and were otherwise negative. PAST MEDICAL HISTORY:[See Below] PAST SURGICAL HISTORY:[See Below] FAMILY HISTORY:[See Below] SOCIAL HISTORY:[See Below] HOME MEDICATIONS:[See Below] ALLERGIES:[See Below] VITALS:[See Below] PHYSICAL EXAMINATION: GENERAL: Awake, alert, well-appearing, in no distress HENT: Normocephalic, atraumatic. Oropharynx unremarkable. EYES: Normal conjunctiva. Sclera non-icteric. PERRL, EOMI. No nystagmus. NECK: Inspection normal. Non-tender. Supple. No nuchal rigidity. FROM. No masses. RESPIRATORY: Clear to auscultation. No wheezes. No rales. Normal respiratory effort. CARDIAC: Normal rate. Normal rhythm. No murmurs. No rubs. Extremities warm and well perfused. Pulses equal. No JVD. GI: Soft, non-distended. No tenderness to palpation. No rebound or guarding. No masses. RECTAL: Deferred. MUSCULOSKELETAL: Atraumatic. Chest examination reveals no tenderness. The back is symmetrical on inspection without obvious abnormality. There is no CVA tenderness to palpation. No joint edema. LOWER EXTREMITIES: Calves are equal size bilaterally and non-tender. No edema. No discoloration. NEURO: Normal sensorium. No sensory or motor deficits noted. SPeech normal. CN 2-12 intact SKIN: No rash or jaundice noted. ED COURSE: [Critical Care:] [None] Selwyn Etienne MD Past Med/Surg History Medical History (Updated 04/03/20 @ 09:58 by Slewyn Etienne MD) Cancer of head and neck Carotid stenosis History of SCC (squamous cell carcinoma) of skin Hyperlipidemia Hypertension Hypothyroidism Squamous cell cancer of tongue Surgical History (Updated 02/15/20 @ 16:28 by Yakelin Wolf) History of colonoscopy History of cystoscopy History of intravascular stent placement History of prostate biopsy History of prostate surgery History of surgery on wrist 1974 History of tonsillectomy Social History Preferred Language: Mosotho Communication Ability: Effective Visual Impairment: No Limitations Hearing Ability: Use of Hearing Aid Subcontract Manager Required: No Beliefs That Will Affect Care: None marital status: Current Living Situation: Spouse current occupational status: employed current occupation: [employer] Other Information That Helps Us Care for You: No Feels Safe at Home: Yes Safety Concerns: Feels Safe At This Time Smoking Status: Never smoker Hx Alcohol Use: Yes (daily glass of wine) Alcohol type: wine Alcohol Intake Frequency: Daily Hx Substance Use: Yes 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 Last Used Substance: Hours (ago) Childhood Exposure to Second-Hand Smoke: No Dental Care, Regularly: Yes Physical Activity Frequency: 3-4 Times per Week Seatbelt Use: always Sunscreen Use: No Allergies Allergies Allergy/AdvReac Type Severity Reaction Status Date / Time No Known Allergies Allergy Verified 04/03/20 11:06 Home Meds Previous Rx's Medication Instructions Recorded finasteride 5 mg tablet 5 mg PO DAILY #90 tab 12/03/19 tamsulosin 0.4 mg capsule 0.4 mg PO DAILY #90 cap 12/04/19 levothyroxine 25 mcg tablet 25 mcg PO DAILY #90 tab 02/04/20 zolpidem 6.25 mg tablet,extended 6.25 mg PO HS PRN #90 tab 02/04/20 release,multiphase atorvastatin 80 mg tablet 80 mg PO DAILY #90 tab 03/03/20 escitalopram oxalate 10 mg tablet 10 mg PO DAILY #90 tab 03/03/20 Results & Data (ED) Vital Signs Vital Signs - 24 hr 04/03/20 09:45 04/03/20 09:52 04/03/20 10:05 Temperature 36.5 C Temperature Source Oral Pulse Rate 72 Pulse Rate [Apical] 67 Pulse Rate from SpO2 Sensor Pulse Rhythm [Apical] Regular Respiratory Rate 20 24 Respiratory Effort / Characteristics Non-Labored Non-Labored Spontaneous Respiratory Depth Normal Normal Blood Pressure 158/121 H Blood Pressure [Left Arm] 182/109 H Blood Pressure [Right Arm] Blood Pressure Mean 133 Blood Pressure Mean [Left Arm] 133 Blood Pressure Mean [Right Arm] Blood Pressure Position Sitting Blood Pressure Position [Left Arm] Pulse Oximetry 85 L 85 L 95 Oxygen Delivery Method Room Air Room Air Nasal Cannula Nasal Cannula Oxygen Flow Rate 2 Sepsis Recent Fever Within 48 Hours No Sepsis New/Unexplained Change in Mental Status No Sepsis Action Taken by Nursing No Action Required Fraction of Inspired Oxygen - Titration 2 Pulse Oximetry Post Tiitration 96 04/03/20 10:47 04/03/20 11:09 04/03/20 11:30 Temperature Temperature Source Pulse Rate 63 Pulse Rate [Apical] 66 66 Pulse Rate from SpO2 Sensor 67 Pulse Rhythm [Apical] Regular Respiratory Rate 15 19 22 Respiratory Effort / Characteristics Non-Labored Respiratory Depth Normal Blood Pressure 146/86 H Blood Pressure [Left Arm] 162/94 H Blood Pressure [Right Arm] 155/86 H Blood Pressure Mean 98 Blood Pressure Mean [Left Arm] 116 Blood Pressure Mean [Right Arm] 109 Blood Pressure Position Blood Pressure Position [Left Arm] Sitting Pulse Oximetry 93 95 96 Oxygen Delivery Method Nasal Cannula Nasal Cannula Nasal Cannula Oxygen Flow Rate 2 2 2 Sepsis Recent Fever Within 48 Hours Sepsis New/Unexplained Change in Mental Status Sepsis Action Taken by Nursing Fraction of Inspired Oxygen - Titration Pulse Oximetry Post Tiitration 04/03/20 12:00 04/03/20 12:30 04/03/20 13:17 Temperature Temperature Source Pulse Rate 68 70 64 Pulse Rate [Apical] Pulse Rate from SpO2 Sensor 67 71 65 Pulse Rhythm [Apical] Respiratory Rate 21 19 20 Respiratory Effort / Characteristics Respiratory Depth Blood Pressure 163/92 H 156/86 H 149/95 H Blood Pressure [Left Arm] Blood Pressure [Right Arm] Blood Pressure Mean 119 98 107 Blood Pressure Mean [Left Arm] Blood Pressure Mean [Right Arm] Blood Pressure Position Blood Pressure Position [Left Arm] Pulse Oximetry 95 95 97 Oxygen Delivery Method Nasal Cannula Nasal Cannula Nasal Cannula Oxygen Flow Rate 2 2 2 Sepsis Recent Fever Within 48 Hours Sepsis New/Unexplained Change in Mental Status Sepsis Action Taken by Nursing Fraction of Inspired Oxygen - Titration Pulse Oximetry Post Tiitration 04/03/20 13:34 04/03/20 14:00 04/03/20 14:01 Temperature Temperature Source Pulse Rate 74 64 66 Pulse Rate [Apical] Pulse Rate from SpO2 Sensor 74 65 66 Pulse Rhythm [Apical] Respiratory Rate 17 21 21 Respiratory Effort / Characteristics Respiratory Depth Blood Pressure 185/100 H 169/99 H Blood Pressure [Left Arm] Blood Pressure [Right Arm] Blood Pressure Mean 123 132 Blood Pressure Mean [Left Arm] Blood Pressure Mean [Right Arm] Blood Pressure Position Blood Pressure Position [Left Arm] Pulse Oximetry 92 90 95 Oxygen Delivery Method Room Air Room Air Nasal Cannula Oxygen Flow Rate 2 Sepsis Recent Fever Within 48 Hours Sepsis New/Unexplained Change in Mental Status Sepsis Action Taken by Nursing Fraction of Inspired Oxygen - Titration Pulse Oximetry Post Tiitration Laboratory Data Result diagrams: 04/03/20 10:44 04/03/20 10:44 Lab Results 06/14/20 06/14/20 06/14/20 Range/Units 10:44 10:44 11:12 WBC 5.76 (4.8-10.8) K/uL RBC 4.86 (4.7-6.1) M/uL Hgb 15.2 (14.0-18.0) g/dL Hct 45.4 (42-52) % MCV 93.4 (80-100) fL MCH 31.3 (25-34) pg MCHC 33.5 (32-36) g/dL RDW Std Deviation 42.8 (36.4-46.3) fL RDW Coeff of Kay 12.5 (11.5-14.5) % Plt Count 156 (130-400) K/uL MPV 10.0 (7.4-10.4) fL Immature Gran % (Auto) 0.2 % Neut % (Auto) 78.3 % Lymph % (Auto) 11.5 % [place] % (Auto) 8.0 % Eos % (Auto) 1.7 % Baso % (Auto) 0.3 % Immature Gran # (Auto) 0.01 (0.00-0.02) K/uL Neut # (Auto) 4.51 (1.4-6.5) K/uL Lymph # (Auto) 0.66 L (1.2-3.4) K/uL [place] # (Auto) 0.46 (0.11-0.59) K/uL Eos # (Auto) 0.10 (0-0.5) K/uL Baso # (Auto) 0.02 (0-0.2) K/uL Sodium 138 (136-145) mmol/L Potassium 4.3 (3.5-5.1) mmol/L Chloride 107 (98-107) mmol/L Carbon Dioxide 27 (21-32) mmol/L Anion Gap 4.0 (3-11) BUN 30 H (7-18) mg/dl Creatinine 0.80 (0.6-1.4) mg/dl Est Cr Clr Drug Dosing 78.2 ml/min Est GFR ( Amer) 95.7 Est GFR (Non-Af Amer) 82.6 BUN/Creatinine Ratio 37.9 H (10-20) Glucose 120 H (70-99) mg/dl Calcium 8.2 L (8.5-10.1) mg/dl Magnesium 1.6 L (1.8-2.4) mg/dl Total Bilirubin 0.7 (0.2-1) mg/dl AST 26 (15-37) U/L ALT 37 (12-78) U/L Alkaline Phosphatase 76 (45-117) U/L Troponin I 0.024 (0-0.045) ng/ml NT-Pro-B Natriuret Pep 714 (0-1800) pg/ml Total Protein 6.9 (6.4-8.2) gm/dl Albumin 3.6 (3.4-5.0) gm/dl Globulin 3.3 (2.5-4.0) gm/dl Albumin/Globulin Ratio 1.1 (0.9-2) TSH 4.750 H (0.300-4.500) uIu/ml Free T4 0.70 L (0.8-1.6) ng/dl Urine Color Yellow Urine Appearance Clear (Clear) Urine pH 5.0 (4.5-7.5) Ur Specific [place] 1.022 (1.000-1.030) Urine Protein Trace H (Negative) Urine Glucose (UA) Negative (Negative) Urine Ketones Negative (Negative) Urine Blood Negative (Negative) Urine Nitrite Negative (Negative) Urine Bilirubin Negative (Negative) Urine Urobilinogen Negative (Negative) Ur Leukocyte Esterase Negative (Negative) Urine WBC (Auto) 1-5 (0-5) /hpf Urine RBC (Auto) 0-4 (0-4) /hpf U Hyaline Cast (Auto) 1-5 (0-5) /lpf U Epithel Cells (Auto) 5-10 H (0-5) /lpf Urine Bacteria (Auto) Negative (Negative) Administered Medications Sodium Chloride (Nss 1000ml) 1,000 mls @ 125 mls/hr IV .Q8H VERONICA Stop: 04/03/20 17:59 Last Admin: 04/03/20 10:50 Dose: 125 mls/hr Documented by: [id number] Ioversol (Optiray 320 125ml) 120 ml IV ONCE PRN PRN Reason: Interaction Checking Stop: 04/07/20 13:23 Last Admin: 04/03/20 13:24 Dose: 120 ml Documented by: [id number] Discharge Plan Visit Data Chief Complaint: Dizziness Stated Complaint: dizziness ED Provider: Maciejczyk,Selwyn F Discharge Problem: Hypoxia, Near syncope, Nausea Forms Stand Alone Forms: My [facility] Prescriptions Prescriptions: No Action finasteride 5 mg tablet 5 mg PO DAILY Qty: 90 RF: 3 tamsulosin 0.4 mg capsule 0.4 mg PO DAILY Qty: 90 RF: 3 levothyroxine 25 mcg tablet 25 mcg PO DAILY Qty: 90 RF: 1 zolpidem 6.25 mg tablet,ext release multiphase 6.25 mg PO HS PRN (Reason: insomnia) Qty: 90 RF: 0 atorvastatin 80 mg tablet 80 mg PO DAILY Qty: 90 RF: 3 escitalopram oxalate 10 mg tablet 10 mg PO DAILY Qty: 90 RF: 3
--- NOTE | 2020-04-03 10:30 | XRay Report ---
XR chest 1V portable HISTORY: 84 years-old Male weakness acute weakness COMPARISON: Chest radiograph 09/25/2017, 11/20/2017. TECHNIQUE: Portable AP view of the chest FINDINGS: Cardiac silhouette is enlarged. Pulmonary vascular congestion with mild interstitial coarsening. No p neumothorax, or large pleural effusion. No lobar airspace consolidation. Degenerative changes of the shoulders and spine. IMPRESSION: Cardiomegaly with pulmonary vascular congestion and mild interstitial coarsening which ma y be secondary to pulmonary edema or atypical pneumonitis. ACT 112: Negative or not required by law. The above report was generated using voice recognition software. It may contain grammatical, syntax o r spelling errors. Electronically signed by: Jun Rivas M.D. 04/03/2020 10:29 AM
--- NOTE | 2020-04-03 10:51 | Electrocardiogram Report ---
Test Reason : Blood Pressure : / mmHG Vent. Rate : 070 BPM Atrial Rate : 070 BPM P-R Int : 198 ms QRS Dur : 094 ms QT Int : 414 ms P-R-T Axes : 041 -09 142 degrees QTc Int : 447 ms Normal sinus rhythm Left ventricular hypertrophy with repolarization abnormality Abnormal ECG When compared with ECG of 23-SEP-2017 06:35, ST no longer depressed in Inferior leads T wave inversion no longer evident in Inferior leads the anterolateral ST/t changes have improved Confirmed by Matthew Medeiros ([id number]) on 04/03/2020 10:51:11 AM Referred By: REFERRED SELF Confirmed By:Matthew Medeiros
[2020-04-03 10:54] LABS: Basophils # (auto) 0.02 K/uL (0-0.2); Basophils % (auto) 0.3 %; Eosinophils % (auto) 1.7 %; Hematocrit (blood only) 45.4 % (42-52); Hemoglobin 15.2 g/dL (14.0-18.0); Immature Granulocytes # (auto) 0.01 K/uL (0.00-0.02); Immature Granulocytes % (auto) 0.2 %; Lymphocytes # (auto) 0.66 K/uL (1.2-3.4); Lymphocytes % (auto) 11.5 %; Mean Corpuscular Hemoglobin 31.3 pg (25-34); Mean Corpuscular Hgb Conc 33.5 g/dL (32-36); Mean Corpuscular Volume 93.4 fL (80-100); Monocytes # (auto) 0.46 K/uL (0.11-0.59); Neutrophils # (auto) 4.51 K/uL (1.4-6.5); Neutrophils % (auto) 78.3 %; Platelet Count 156 K/uL (130-400); RDW Coefficient of Variation 12.5 % (11.5-14.5); RDW Standard Deviation 42.8 fL (36.4-46.3); Red Blood Count 4.86 M/uL (4.7-6.1); White Blood Count 5.76 K/uL (4.8-10.8)
[2020-04-03 11:16] LABS: Albumin Level 3.6 gm/dl (3.4-5.0); BUN Creatinine Ratio 37.9 (10-20); Calcium 8.2 mg/dl (8.5-10.1); Creatinine Clr Calc Pharmacy 78.2 ml/min; Est GFR (African American) 95.7; Est GFR (Non-African American) 82.6; Magnesium 1.6 mg/dl (1.8-2.4); Potassium 4.3 mmol/L (3.5-5.1)
[2020-04-03 11:27] LABS: Albumin Globulin Ratio 1.1 (0.9-2); Bilirubin,Total 0.7 mg/dl (0.2-1); Globulin 3.3 gm/dl (2.5-4.0); Thyroid Stimulating Hormone 4.75 uIu/ml (0.300-4.500); Total Protein 6.9 gm/dl (6.4-8.2); Troponin I 0.024 ng/ml (0-0.045)
[2020-04-03 11:28] LABS: Appearance Urine Clear (Clear); Bacteria Urine Automated Negative (Negative); Bilirubin Urine Negative (Negative); Blood Urine Negative (Negative); Color Urine Yellow; Glucose Urine UA Negative (Negative); Ketones Urine Negative (Negative); Leukocyte Esterase Urine Negative (Negative); Nitrite Urine Negative (Negative); Protein Urine Trace (Negative); RBC Urine Automated 0-4 /hpf (0-4); Specific Gravity Urine 1.022 (1.000-1.030); Urobilinogen Urine Negative (Negative)
[2020-04-03 11:39] LABS: T4 Free Thyroxine 0.7 ng/dl (0.8-1.6)
--- NOTE | 2020-04-03 11:54 | CT Scan Report ---
CT head/brain wo con CLINICAL HISTORY: 84 years-old Male with near syncope. Acute near syncopal event TECHNIQUE: Multiple axial CT images of the head were obtained without contrast. A dose lowering tech nique was utilized adhering to the principles of ALARA. CT DOSE: 537.48 mGy.cm COMPARISON: CT 01/30/2018. FINDINGS: No acute intracranial hemorrhage, midline shift, intracranial mass, hydrocephalus, territorial ischem ia or abnormal extra-axial collection. Mild age-related involutional changes. Patchy white matter hyp odensities suggest chronic microvascular ischemic disease. 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 Cerebral vascular calcifications. The calvarium is intact. Mastoid air cells are clear. Mild mucosal thickening of the left maxillary sinus. Soft tissues and orbits are unremarkable. IMPRESSION: No acute intracranial abnormality. ACT 112: Negative or not required by law. The above report was generated using voice recognition software. It may contain grammatical, syntax o r spelling errors. Electronically signed by: Jun Rivas M.D. 04/03/2020 11:53 AM
[2020-04-03] MEDS ORDERED: OPTIRAY 320 125ml IV PRN (13:24)
--- NOTE | 2020-04-03 13:43 | CT Scan Report ---
CT angio chest PE protocol CT DOSE: 589.10 mGy.cm HISTORY: 84 years-old Male with hypoxia, near syncope. Acute hypoxia TECHNIQUE: Multiple CTA images of the chest were obtained after the intravenous administration of 120 ml Optiray 320. Coronal and sagittal MIPS were obtained from the axial data set and were submitted for review. All measurements were obtained according to NASCET criteria. A dose lowering technique w as utilized adhering to the principles of ALARA. COMPARISON: Chest radiograph 04/03/2020, CTA chest 01/22/2016 FINDINGS: CTA: Moderate cardiomegaly. No pericardial effusion. Extensive coronary artery calcifications. Aortic charisma lar calcifications. Suboptimal evaluation of the left heart structures secondary to contrast bolus ti lorrie. Extensive calcified plaque of the thoracic aorta without aneurysm or dissection identified. Dil ation of the pulmonary artery, 4.2 cm. The pulmonary artery is opacified to the level of the segmenta l branches and demonstrates no filling defects to suggest thromboembolic disease. CT CHEST: Atrophic appearance of the thyroid. Indeterminate mildly enlarged 11 mm AP window lymph node. Mildly prominent paratracheal lymph nodes measure up to 9 mm. Enlarged subcarinal lymph nodes measure up to 1.9 x 1.5 cm. Trace pleural effusions. Intralobular septal thickening is noted along with thickening of the bronchovascular bundles. Mild bibasilar mucous plugging. Air mixed bilateral groundglass densi ties. There are a few scattered bilateral solid pulmonary nodules measuring up to approximately 4 mm, most pronounced in the lingula. Respiratory motion artifact limits evaluation of the lung parenchyma . Central airways are patent. Mild cholelithiasis. Calcified granulomata of the spleen. Colonic diverticulosis. Hepatic steatosis. Soft tissues are unremarkable. Bones appear intact. No acute fracture. IMPRESSION: 1. Cardiomegaly with pulmonary edema and trace pleural effusions. No evidence of pulmonary thromboemb olic disease. 2. Multiple scattered solid pulmonary nodules, most pronounced in the left upper lobe and lingula darek suring up to 4 mm are nonspecific however favor an infectious or inflammatory process. Follow-up guid elines provided below. 3. Dilation of the pulmonary artery suggests pulmonary arterial hypertension. 4. Mild mediastinal adenopathy, likely reactive. 5. Hepatic steatosis. 6. Colonic diverticulosis. 7. Cholelithiasis. Please refer to below summary of Fleischner criteria recommendations for follow-up of incidental CT n odules (Mai Stewart, Guidelines for management of small pulmonary nodules detected on CT scans: A stephania cartwright from the Fleischner Society, Radiology 237: [phone].) SOLID NODULES Multiple nodules size: <6 mm * Low risk patients: no routine follow-up * high risk patients: optional CT at 12 months Note: newly detected indeterminate nodule in persons 35 years of age or older. * Low risk patients: minimal or absent history of smoking and/or other known risk factors * high risk patients: history of smoking or of other known risk factors (e.g. first degree relative with lung cancer, or exposure to asbestos, radon, uranium) * if a nodule up to 8 mm is partly solid or is ground glass further follow-up is required after 24 m onths to exclude possible slow growing adenocarcinoma (EDILSON) ACT 112: Negative or not required by law. The above report was generated using voice recognition software. It may contain grammatical, syntax o r spelling errors. Electronically signed by: Jun Rivas M.D. 04/03/2020 1:42 PM
[2020-04-03] MEDS ORDERED: MAGNESIUM SULFATE / D5W 1 GM/100 ML BAG IV ONE (16:22)
--- NOTE | 2020-04-03 17:36 | History & Physical Report ---
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 If still significantly hypoxic in morning will need 6 minute walk. (3) Pre-syncope: Suspect related to hypoxia due to hypersensitivity pneumonitis as above Monitor on telemetry, however suspicion for arrhythmia is low. (4) HTN (hypertension): Continue routine medications (5) Hypothyroidism: Increase levothyroxine to 50mcg PO daily based on elevated TSH and low T4 (6) DVT prophylaxis: SCDs Admission and Anticipated Discharge Date Admission Date: 04/03/2020 History of Present Illness Chief Complaint: Shortness of breath, hypoxia Primary Care Provider: Collin Iniguez MD Dm Ferreira is an 84 year old male who presents via EMS to the ER after a dizziness episode this morning. Patient reports feeling his normal self this morning. Walked to the end of his driveway without any issues, no chest pain or shortness of breath. While cooking sausages he turned them over and smelt a large "aroma". At this time his vision "started to go". Bilaterally. [place] dizzy. Had not had anything to eat prior to this but not unusual for him. Gradually his dizziness/light headedness became worse. No vertigo sensation. He became unsteady on his feet and had to sit in the recliner. He felt almost like "this was the end". Episode lasted 10-30 minutes. Associated clamminess and diaphoresis. [place] like he had to lie down but concerned about moving him so he stayed sitting up. No change in his speech or hearing. Vision changes were blurry, not loss of vision. He denies any usual orthostatic symptoms and no recent changes to his blood pressure medications. Reports yesterday going for a long walk and feeling like he had increased breathing problems because of the pollen but at home did not notice shortness of breath. Initially in the ER he was screened negative for COVID-[address] findings and notable coughing episode yesterday (lasted 5 minutes, ?due to pollen) with current hypoxia; swab sent from ER and subsequently negative. He has been for a hair cut and dentist appointment more recently but generally strictly quarantining Patient was seen with full PPE, N95, gown, shield and gloves while awaiting for test results. In December started on low dose levothyroxine. Had planned on follow up testing but subsequently has not followed up due to current pandemic. Bladder ca. 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, follows up every 6 months Allergies Allergy/AdvReac Type Severity Reaction Status Date / Time No Known Allergies Allergy Verified 04/03/20 11:06 Home Medications Home Medications Medication Instructions Recorded Confirmed Type finasteride 5 mg tablet 5 mg PO DAILY #90 tab 12/03/19 04/03/20 Rx tamsulosin 0.4 mg capsule 0.4 mg PO DAILY #90 cap 12/04/19 04/03/20 Rx levothyroxine 25 mcg tablet 25 mcg PO DAILY #90 tab 02/04/20 04/03/20 Rx zolpidem 6.25 mg tablet,extended 6.25 mg PO HS PRN #90 tab 02/04/20 04/03/20 Rx release,multiphase atorvastatin 80 mg tablet 80 mg PO DAILY #90 tab 03/03/20 04/03/20 Rx escitalopram oxalate 10 mg tablet 10 mg PO DAILY #90 tab 03/03/20 04/03/20 Rx Past Med/Surg History Medical History (Updated 04/04/20 @ 10:45 by Alexis Henderson MD) Cancer of head and neck Carotid stenosis History of SCC (squamous cell carcinoma) of skin Hyperlipidemia Hypertension Hypothyroidism Sepsis Squamous cell cancer of tongue Urinary retention (Inactive) UTI (urinary tract infection) Surgical History History of colonoscopy History of cystoscopy History of intravascular stent placement History of prostate biopsy History of prostate surgery History of surgery on wrist 1974 History of tonsillectomy Social History Preferred Language: Vietnamese Communication Ability: Effective Visual Impairment: No Limitations Hearing Ability: Use of Hearing Aid [employer] Required: No Beliefs That Will Affect Care: None marital status: Current Living Situation: Spouse current occupational status: employed current occupation: [employer] Other Information That Helps Us Care for You: No Feels Safe at Home: Yes Safety Concerns: Feels Safe At This Time Smoking Status: Never smoker Hx Alcohol Use: Yes (daily glass of wine) Alcohol type: wine Alcohol Intake Frequency: Daily Hx Substance Use: Yes 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 Last Used Substance: Hours (ago) Childhood Exposure to Second-Hand Smoke: No Dental Care, Regularly: Yes Physical Activity Frequency: 3-4 Times per Week Seatbelt Use: always Sunscreen Use: No Review of Systems Review of Systems: All systems reviewed & are unremarkable except as noted in HPI & below Physical Exam Constitutional: WD/WN, vitals as above Eyes: PERRL, conjunctivae normal, anicteric sclerae ENMT: external ear and nose normal, oropharynx normal Neck: trachea midline, no thyromegaly + abnormal visual inspection (radiation skin changes noted anterior neck) Respiratory: normal respiratory effort, lungs clear to auscultation Cardiovascular: RRR, no murmur, no edema Gastrointestinal (Abdomen): normal bowel sounds, soft, nontender, no hepatosplenomegaly Musculoskeletal: no cyanosis or clubbing, extremities motor strength 5/5 Skin: no rashes, warm and dry Neurologic: CN's II-XI intact bilaterally, moves all extremities and awake; no focal motor deficits and not confused Speech / Cognition: normal speech Motor/Sensory: no tremor, no pronator drift and no sensory deficit Psychiatric: A+Ox3, euthymic affect Genitourinary: no CVA tenderness Lymphatic: no cervical or axillary lymphadenopathy Results & Data Results & Data ([facility]) Vital Signs (Past 12 Hours) Vital Signs Temp Pulse Pulse Resp BP BP BP 04/03/20 16:30 64 16 131/75 04/03/20 16:00 65 18 139/82 04/03/20 15:31 64 15 125/60 04/03/20 15:00 63 14 155/84 H 04/03/20 14:30 65 14 151/88 H 04/03/20 14:01 66 21 04/03/20 14:00 64 21 169/99 H 04/03/20 13:34 74 17 185/100 H 04/03/20 13:17 64 20 149/95 H 04/03/20 12:30 70 19 156/86 H 04/03/20 12:00 68 21 163/92 H 04/03/20 11:30 63 22 146/86 H 04/03/20 11:09 66 19 155/86 H 04/03/20 10:47 66 15 162/94 H 04/03/20 10:05 67 24 182/109 H 04/03/20 09:52 04/03/20 09:45 36.5 C 72 20 158/121 H Pulse Ox 04/03/20 16:30 95 04/03/20 16:00 96 04/03/20 15:31 96 04/03/20 15:00 97 04/03/20 14:30 97 04/03/20 14:01 95 04/03/20 14:00 90 04/03/20 13:34 92 04/03/20 13:17 97 04/03/20 12:30 95 04/03/20 12:00 95 04/03/20 11:30 96 04/03/20 11:09 95 04/03/20 10:47 93 04/03/20 10:05 95 04/03/20 09:52 85 L 04/03/20 09:45 85 L Diagnostic Findings XR chest 1V portable IMPRESSION: Cardiomegaly with pulmonary vascular congestion and mild interstitial coarsening which may be secondary to pulmonary edema or atypical pneumonitis. CT head/brain wo con IMPRESSION: No acute intracranial abnormality. CT angio chest PE protocol IMPRESSION: 1. Cardiomegaly with pulmonary edema and trace pleural effusions. No evidence of pulmonary thromboembolic disease. 2. Multiple scattered solid pulmonary nodules, most pronounced in the left upper lobe and lingula measuring up to 4 mm are nonspecific however favor an infec tious or inflammatory process. Follow-up guidelines provided below. 3. Dilation of the pulmonary artery suggests pulmonary arterial hypertension. 4. Mild mediastinal adenopathy, likely reactive. 5. Hepatic steatosis. 6. Colonic diverticulosis. 7. Cholelithiasis. ECG Indication: SOB/dyspnea Rate (beats per minute): 70 Rhythm: normal sinus Findings: no acute ischemic change Comparison ECG Date: from (09/23/2017) Change: the following changes noted (ischemic changes appear to have resolved) Code Status & VTE Plan Code Status Full VTE Prophylaxis Plan VTE Prophylaxis will be ordered: Yes PG Care Time/CCT Total # of Minutes Spent Total Time Spent with Patient: Total time spent is greater than 50% in coordination of care (as documented) at patient's floor/unit and/or counseling patient: Coding Level of Care Code 93470 Initial Inpt Care Lvl 3 Diagnoses Hypersensitivity pneumonitis J67.9 Hypoxia R09.02 Pre-syncope R55 HTN (hypertension) I10 Hypothyroidism E03.9 DVT prophylaxis Z29.9
[2020-04-03] MEDS ORDERED: ZOLPIDEM TARTRATE 5 MG TAB PO PRN (20:40)
[2020-04-03] MEDS ORDERED: Nursing to Pharmacy Communication SCH (23:45)
[2020-04-04] MEDS ORDERED: LEVOTHYROXINE SODIUM 25 MCG TABLET PO SCH (04:00)
[2020-04-04] MEDS ORDERED: LEVOTHYROXINE SODIUM 50 MCG TABLET PO SCH (06:30)
[2020-04-04] MEDS ORDERED: FINASTERIDE 5 MG TAB PO SCH (08:00)
[2020-04-04] MEDS ORDERED: ESCITALOPRAM OXALATE 10 MG TAB PO SCH (08:00)
[2020-04-04] MEDS ORDERED: TAMSULOSIN HCL 0.4 MG CAP PO SCH (08:00)
[2020-04-04] MEDS ORDERED: ATORVASTATIN 40 MG TAB PO SCH (08:00)
--- NOTE | 2020-04-04 08:48 | Hospitalist Progress Note ---
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 Cardiomegaly with pulmonary edema and trace pleural effusions. No evidence of pulmonary thromboembolic disease. 2. Multiple scattered solid pulmonary nodules, most pronounced in the left upper lobe and lingula measuring up to 4 mm are nonspecific however favor an infectious or inflammatory process. Follow-up one year. 3. Dilation of the pulmonary artery suggests pulmonary arterial hypertension. 4. Mild mediastinal adenopathy, likely reactive. 5. Hepatic steatosis. 6. Colonic diverticulosis. 7. Cholelithiasis. (2) Hypoxia: Aim O2 sats > 94%. If still significantly hypoxic in morning will need 6 minute walk. (3) Pre-syncope: Suspect related to hypoxia due to hypersensitivity pneumonitis as above Monitor on telemetry, however suspicion for arrhythmia is low. (4) HTN (hypertension): typically does not take medicines (5) Hypothyroidism: Increase levothyroxine to 50mcg PO daily based on elevated TSH and low T4 Admission and Anticipated Discharge Date Admission Date: April 03, 2020 Results & Data Results & Data ([facility]) Vital Signs (Past 12 Hours) Vital Signs Temp Pulse Pulse Resp BP Pulse Ox 04/04/20 07:29 98.6 F 60 18 132/76 90 04/04/20 03:57 98.1 F 65 18 109/64 90 04/03/20 23:30 56 L 04/03/20 22:24 98.1 F 63 18 101/57 L 90 04/03/20 21:03 64 PG Care Time/CCT Total # of Minutes Spent Total Time Spent with Patient: Total time spent is greater than 50% in coordination of care (as documented) at patient's floor/unit and/or counseling patient: Coding Diagnoses Hypersensitivity pneumonitis J67.9 Hypoxia R09.02 Pre-syncope R55 HTN (hypertension) I10 Hypothyroidism E03.9
--- NOTE | 2020-04-04 18:20 | Discharge Summary ---
Date of Service April 04, 2020 Admission HPI Per Admitting Provider Dm Ferreira is an 84 year old male who presents via EMS to the ER after a dizziness episode this morning. Patient reports feeling his normal self this morning. Walked to the end of his driveway without any issues, no chest pain or shortness of breath. While cooking sausages he turned them over and smelt a large "aroma". At this time his vision "started to go". Bilaterally. [place] dizzy. Had not had anything to eat prior to this but not unusual for him. Gradually his dizziness/light headedness became worse. No vertigo sensation. He became unsteady on his feet and had to sit in the recliner. He felt almost like "this was the end". Episode lasted 10-30 minutes. Associated clamminess and diaphoresis. [place] like he had to lie down but concerned about moving him so he stayed sitting up. No change in his speech or hearing. Vision changes were blurry, not loss of vision. He denies any usual orthostatic symptoms and no recent changes to his blood pressure medications. Reports yesterday going for a long walk and feeling like he had increased breathing problems because of the pollen but at home did not notice shortness of breath. Initially in the ER he was screened negative for COVID-[address] findings and notable coughing episode yesterday (lasted 5 minutes, ?due to pollen) with current hypoxia; swab sent from ER and subsequently negative. He has been for a hair cut and dentist appointment more recently but generally strictly quarantining Patient was seen with full PPE, N95, gown, shield and gloves while awaiting for test results. In December started on low dose levothyroxine. Had planned on follow up testing but subsequently has not followed up due to current pandemic. Bladder ca. 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 Lungs are clear to auscultation and appear unlabored Cardiac exam, Rhythm is regular.. No murmurs, rubs or gallops. Abdominal exam reveals normal bowel sounds, soft non tender, no masses Extremities are nonedematous and both pedal pulses are normal. Neurologic exam is alert and oriented, no focal loss of strength or sensation Skin is without bruises or rashes Psychologically is without concerns for anxiety or depression Discharge Data Allergies Allergy/AdvReac Type Severity Reaction Status Date / Time No Known Allergies Allergy Verified 04/03/20 11:06 Consultations 04/03/20 16:30 ED Decision to Admit Stat Ordered Studies 04/03/20 09:54 CT head/brain wo con Stat 04/03/20 12:26 CT angio chest PE protocol Stat Hospital Course (1) Hypersensitivity pneumonitis: WBC, procalcitonin negative COVID-19 negative Suspect related to the fumes from when he was cooking sausages causing pulmonary irritation, maybe from aerosolized pepper hypioxia and symptoms completely resolved (2) Hypoxia: resolved (3) Pre-syncope: Suspect related to hypoxia due to hypersensitivity pneumonitis as above no arrythmia on telemetry even with walking (4) HTN (hypertension): typically does not take medicines (5) Hypothyroidism: Increase levothyroxine to 50mcg PO daily based on elevated TSH and low T4, discharged on 50 micrograms and will recommend follow up in 6 weeks Total Time Total Time Spent Total Time Spent (In Minutes): It required greater than 30 minutes to prepare this patient for discharge Discharge Plan Discharge Items Patient Disposition: Home - Home Health Services Reason For Visit: LIGHTHEADEDNESS HYPOXIA Discharge Diagnosis: presyncope, hypoxioa Activity: Resume your previous activity Non-emergency contact: Primary Care Provider Call non-emergency contact if: you have any medication questions Follow-up/Referrals: Collin Iniguez MD [Primary Care Provider] - 04/12/20 3:15 pm (please follow up with your primary care physician. If you are unable to keep this appointment please call to reschedule) Diet: Regular Addtl Attending Provider Instructions: please gradually resume your typical activities, please see your family doctor this week for a recheck specifically recheck your oxygen level Pending Studies at Discharge: No Stand-Alone Forms: My COM DEV, Smoking Cessation Medications and DC Order Prescriptions: New levothyroxine [Synthroid] 50 mcg Tablet 50 mcg PO DAILY@629 Qty: 30 RF: 5 Continued finasteride 5 mg tablet 5 mg PO DAILY Qty: 90 RF: 3 tamsulosin 0.4 mg capsule 0.4 mg PO DAILY Qty: 90 RF: 3 zolpidem 6.25 mg tablet,ext release multiphase 6.25 mg PO HS PRN (Reason: insomnia) Qty: 90 RF: 0 atorvastatin 80 mg tablet 80 mg PO DAILY Qty: 90 RF: 3 escitalopram oxalate 10 mg tablet 10 mg PO DAILY Qty: 90 RF: 3 Discontinued levothyroxine 25 mcg tablet 25 mcg PO DAILY Qty: 90 RF: 1 Discharge Orders: Discharge Order (Routine); Ordered 04/04/20 Ordered By: Howard Covarrubias Admission Data Admit Date/Time: 04/03/20 17:09 Attending Provider: Howard Covarrubias Admit Provider: Alexis Henderson Primary Care Provider: Collin Iniguez Other Providers: Alexis Henderson Other Interventions: Discharge Summary Assessment (RN) Last Done: 04/04/20 13:31 DC Date/Time DO NOT enter until pt leaves facility: 04/04/20 14:05 Coding Level of Care Code D/C Day Management >30 mins Diagnoses Hypersensitivity pneumonitis J67.9 Hypoxia R09.02 Pre-syncope R55 HTN (hypertension) I10 Hypothyroidism E03.9
== END 2020-04-04 14:05 | disposition home health service (06) | DRG 198 ==
LOC: ED 09:39 → SUATTDRO 17:09 → 2N 17:09 → 2W 19:12

== ENCOUNTER 2024-04-03 09:02 | Inpatient (IN) ==
--- NOTE | 2024-04-03 09:23 | Emergency Department Note ---
Impression & Plan Elevated troponin, Acute UTI ADMIT ED Provider Note HPI: History obtained from patient. The patient is a 88-year-old gentleman with history of bladder cancer, not currently under any treatment, hypertension, recent diagnosis of COVID-19 (6 weeks ago) who presents the emergency department with a chief complaint of hematuria. Patient states that he was in his normal state of health until Saturday evening when he developed some painless hematuria. Patient states his urine has been very dark. Patient denies any abdominal pain, denies any flank pain, denies any recent fevers. On arrival here to the ED the patient is noted to have hypoxia at 89% on room air, he states he did not feel any worsening shortness of breath recently but he has had some issues with his breathing in general over about the past 6 weeks since he was diagnosed with COVID-19. Patient denies any chest pain. Blood pressure is slightly low on arrival at 102/59, heart rate is within normal limits, patient is afebrile on arrival. ROS: - Per HPI Differential Diagnosis: Bladder mass/tumor, prostatitis, urinary tract infection, kidney mass/tumor, ACS, pulmonary embolism, pulmonary edema, acute CHF exacerbation, amongst other potential pathologies. *Outpatient medications and allergy history reviewed. 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 Lab work shows no leukocytosis, hemoglobin is stable at 13.1, platelet count is normal, CMP does not show any critical findings, no evidence of acute kidney injury, troponin is mildly elevated at 55.0 with unclear baseline. BNP is mildly elevated at 603. Chest x-ray does show some evidence of pulmonary vascular congestion. Patient was given IV Lasix here in the ED. Patient's urinalysis is consistent with possible infection, he is able to urinate under his own power at this time without urinary retention. He does have a history of bladder cancer, CT imaging of the abdomen and pelvis was obtained and shows evidence of an enlarged prostate with debris within the bladder consistent with possible hemorrhage. There is some evidence also of possible chronic diverticulitis however patient does not have any abdominal pain on my exam. I do not think this is an acute finding. Unclear source for the patient's hematuria at this time, suspect given his history he may have a lesion within the bladder with some hemorrhage. Patient will likely require cystoscopy. I did discuss this with the patient and he expressed understanding. Patient was hypoxic on arrival at 89% was placed on nasal cannula oxygen. Viral panel testing was negative. I suspect that the patient likely has an element of fluid overload playing a role in his hypoxia. He was given IV Lasix here in the ED and remained stable and placed on nasal cannula oxygen. Overall I feel the patient should be admitted for UTI, elevated troponin, and CHF exacerbation/fluid overload with hypoxia. I discussed this with the patient and he is in agreement for admission. In addition, his EKG does not show any acute ischemic changes however he is in a slow atrial flutter. Patient states that he believes he was diagnosed with this at some point in the past but he is not currently being managed for it and he is not currently on any anticoagulation. Patient is in agreement to the above plan, I discussed the patient's presentation with the on-call admitting hospitalist service, case was discussed with Priyank Madera PA-C, and the patient was placed for admission to the service of Dr. Henderson. Consultants/Discussions held with other healthcare providers: -Hospitalist, Dr. Henderson Disposition discussion held by myself with: -Patient * CRITICAL CARE TIME: ( 34 ) minutes -Stabilization of hypoxia with oxygen saturation at 89% on room air requiring supplemental oxygen for correction, time spent at the bedside, interpretation of diagnostic studies, discussion with other healthcare providers and arrangement of admission. Diagnosis: 1. Hypoxia, acute 2. Elevated troponin, acute 3. Elevated BNP 4. Hematuria, acute Disposition: Admission David Nicholson DO Emergency Medicine Past Med/Surg History Problem List (Updated 04/03/24 @ 13:30 by David Nicholson DO) Acute UTI (Acute) Elevated troponin (Acute) Generalized weakness Gross hematuria Atrial flutter (HFpEF) heart failure with preserved ejection fraction Hematuria (Acute) Lumbar canal stenosis (Chronic) Impaired fasting glucose (Chronic) Hypothyroidism (Chronic) HTN (hypertension) (Chronic) Hyperlipidemia (Chronic) Chemotherapy-induced neutropenia (Chronic) Asymptomatic stenosis of right carotid artery (Chronic) Arteriosclerosis of coronary artery (Chronic) Hypoxia (Acute) Near syncope (Acute) Nausea (Acute) Hypersensitivity pneumonitis Pre-syncope Pulmonary nodules Encounter for pre-operative examination Hx of bladder cancer (Acute) Medical History BPH (benign prostatic hyperplasia) Carotid stenosis Fracture of right hip requiring operative repair History of SCC (squamous cell carcinoma) of skin Hyperlipidemia Hypothyroidism Myocardial Infarction (~1978) Squamous cell cancer of tongue (~2014) Surgical History History of cardiac cath History of carotid endarterectomy History of cataract surgery History of colonoscopy History of cystoscopy History of open reduction and internal fixation (ORIF) procedure History of prostate biopsy History of surgery on wrist (~1974) History of tonsillectomy Status post Mohs surgery Family History Other Family history not known due to adoption Social History Smoking Status: Former smoker Tobacco Type: Cigarettes Age Started Using Tobacco: 22; Age Quit Using Tobacco: 51; Second Hand Exposure: Yes; Do You Dip or Chew Tobacco: No; Hx Alcohol Use: Yes (2-3 glasses of wine or beer daily ) Alcohol type: wine Alcohol Intake Frequency: 4 or More x per/Week Hx Substance Use: No Preferred Language: Thai Communication Ability: Effective Visual Impairment: Limited Hearing Ability: Use of Hearing Aid Business Asst Required: No Beliefs That Will Affect Care: None marital status: Current Living Situation: Spouse current occupational status: employed current occupation: [employer] How many Children do You have: 2 Feels Safe at Home: Yes Childhood Exposure to Second-Hand Smoke: No caffeine: Yes (coffee) Dental Care, Regularly: Yes Physical Activity Frequency: 3-4 Times per Week Physical Activity Frequency Comment: does a lot of yardwork in the summer time Seatbelt Use: always Sunscreen Use: No Assistive Devices: Glasses and Hearing Aid - Bilateral Allergies Allergies Allergy/AdvReac Type Severity Reaction Status Date / Time No Known Allergies Allergy Verified 03/31/24 13:48 Home Meds Home Medications Medication Instructions Recorded Confirmed Vitamin D3 1 tab PO QAM 04/10/21 04/03/24 calcium carbonate 600 mg-vitamin 1 tab PO QAM 04/10/21 04/03/24 D3 5 mcg (200 unit) tablet coenzyme Q10 100 mg capsule 100 mg PO QAM 04/10/21 04/03/24 (CoQ-10) omega-3 240 hx-geq-wri-cod liver 1 cap PO QAM 04/10/21 04/03/24 oil 1,000 mg-vit A-vit D3 capsule (cod liver oil) omega-3 fatty acids 1,000 mg PO DAILY 04/10/21 04/03/24 zinc 50 mg tablet 50 mg PO QAM 04/10/21 04/03/24 atorvastatin 80 mg tablet 80 mg PO HS 04/03/24 04/03/24 Previous Rx's Medication Instructions Recorded epinephrine 0.3 mg/0.3 mL 0.3 mg (0.3 mL) IM Q10M PRN 09/27/20 injection, auto-injector (EpiPen anaphylaxis #2 ea 2-Prabhu) levothyroxine 50 mcg tablet See Rx Instructions .Route 12/25/22 .COMPLEX #90 tabs escitalopram oxalate 10 mg tablet See Rx Instructions .Route 03/14/23 .COMPLEX #90 tabs desoximetasone 0.25 % topical cream 1 applic topical BID PRN rash #15 07/26/23 grams zolpidem 6.25 mg tablet,extended 6.25 mg PO HS SLEEP #90 tabs 01/14/24 release,multiphase finasteride 5 mg tablet See Rx Instructions .Route 03/06/24 .COMPLEX #90 tabs tamsulosin 0.4 mg capsule 0.4 mg PO DAILY #90 caps 03/06/24 betamethasone dipropionate 0.05 % 1 applic topical DAILY #60 mL 03/26/24 lotion furosemide 20 mg tablet 20 mg PO BID 1 week #14 tabs 03/31/24 Results & Data (ED) Vital Signs Vital Signs - 24 hr 04/03/24 09:04 04/03/24 09:28 04/03/24 09:30 Temperature 36.5 C Temperature Source Temporal Artery Scan Pulse Rate 72 70 Pulse Rate [Apical] 70 Pulse Rhythm [Apical] Regular Respiratory Rate 15 16 Respiratory Effort / Characteristics Non-Labored Spontaneous Respiratory Depth Normal Respiratory Pattern Regular Blood Pressure 102/59 L Blood Pressure [Right Arm] 146/78 H Blood Pressure Mean 73 Blood Pressure Mean [Right Arm] 100 Pulse Oximetry 89 L 95 Oxygen Delivery Method Room Air Nasal Cannula Oxygen Flow Rate 2 Sepsis Recent Fever Within 48 Hours No Sepsis New/Unexplained Change in Mental Status No Sepsis Action Taken by Nursing No Action Required 04/03/24 09:30 04/03/24 12:35 04/03/24 12:41 Temperature 36.5 C Temperature Source Oral Pulse Rate 70 Pulse Rate [Apical] 69 Pulse Rhythm [Apical] Respiratory Rate 16 21 18 Respiratory Effort / Characteristics Spontaneous Short of Breath Non-Labored Spontaneous Respiratory Depth Normal Normal Respiratory Pattern Regular Tachypnea Regular Blood Pressure Blood Pressure [Right Arm] 140/71 Blood Pressure Mean Blood Pressure Mean [Right Arm] 94 Pulse Oximetry 94 92 97 Oxygen Delivery Method Nasal Cannula Nasal Cannula Nasal Cannula Oxygen Flow Rate 2 3 2 Sepsis Recent Fever Within 48 Hours Sepsis New/Unexplained Change in Mental Status Sepsis Action Taken by Nursing Laboratory Data 04/03/24 09:30 04/03/24 09:30 Lab Results 04/03/24 04/03/24 04/03/24 Range/Units 09:30 10:59 11:30 WBC 6.34 (4.8-10.8) K/ul RBC 4.61 L (4.70-6.10) M/uL Hgb 13.1 L (14.0-18.0) g/dl Hct 42.0 (42.0-52.0) % MCV 91.1 (80.0-100.0) fL MCH 28.4 (25.0-34.0) pg MCHC 31.2 L (32.0-36.0) g/dL RDW Std Deviation 48.3 H (36.4-46.3) fL RDW Coeff of Kay 14.7 H (11.5-14.5) % Plt Count 216 (130-400) K/uL MPV 10.0 (9.4-12.4) fL Immature Gran % (Auto) 0.3 % Neut % (Auto) 74.7 % Lymph % (Auto) 11.4 % [place] % (Auto) 9.8 % Eos % (Auto) 3.2 % Baso % (Auto) 0.6 % Neut # (Auto) 4.74 (1.40-6.50) K/uL Lymph # (Auto) 0.72 L (1.20-3.40) K/uL [place] # (Auto) 0.62 H (0.11-0.59) K/uL Eos # (Auto) 0.20 (0.00-0.50) K/uL Baso # (Auto) 0.04 (0.00-0.20) K/uL Immature Gran # (Auto) 0.02 (0.01-0.20) K/uL PT 13.2 H (9.0-12.0) Seconds INR 1.2 H (0.9-1.1) VBG pH 7.39 (7.36-7.41) VBG pCO2 50 (38-50) mmHg VBG pO2 35 mmHg VBG HCO3 30 mmol/L VBG O2 Saturation < 60.0 % VBG Base Excess 4.2 mEq/L Sodium 139 (136-145) mmol/L Potassium 4.1 (3.5-5.1) mmol/L Chloride 104 (98-107) mmol/L Carbon Dioxide 27 (21-32) mmol/L Anion Gap 8 (3-11) BUN 34 H (6-23) mg/dl Creatinine 1.15 (0.6-1.4) mg/dl Est Cr Clr Drug Dosing 50.2 ml/min Est GFR ( Amer) 65.9 ml/min Est GFR (Non-Af Amer) 56.9 ml/min BUN/Creatinine Ratio 29.6 H (10-20) Glucose 141 H (70-99(Fasting)) mg/dl Calcium 9.4 (8.6-10.3) mg/dl Magnesium 1.6 L (1.7-2.4) mg/dl Total Bilirubin 1.1 H (0.2-1.0) mg/dl AST 35 (13-39) U/L ALT 25 (7-52) U/L Alkaline Phosphatase 116 H (34-104) U/L Troponin I High Sens 55.0 H* 59.8 H* (0-20) pg/ml B-Natriuretic Peptide 603 H (0-100) pg/ml Total Protein 7.5 (6.0-8.3) gm/dl Albumin 3.9 (3.4-5.0) gm/dl Globulin 3.6 (2.5-4.0) gm/dl Albumin/Globulin Ratio 1.1 (0.9-2) Lipase 32 (11-82) U/L Urine Color Red Urine Appearance Cloudy A (Clear) Urine pH 7.0 (4.5-7.5) Ur Specific [place] 1.025 (1.000-1.030) Urine Protein 3+ H (Negative) Urine Glucose (UA) Negative (Negative) Urine Ketones Negative (Negative) Urine Blood 3+ H (Negative) Urine Nitrite Positive A (Negative) Urine Bilirubin Negative (Negative) Urine Urobilinogen Positive H (Negative) Ur Leukocyte Esterase Trace H (Negative) Urine RBC >20 H (0-2) /hpf Urine WBC 6-10 H (0-5) /hpf Ur Epithelial Cells 0-2 (0-2) /hpf Urine Bacteria 2+ H (None Seen) Adenovirus (PCR) Not Detected (NotDetected) B. pertussis DNA (PCR) Not Detected (NotDetected) B.parapertussis DNA PCR Not Detected (NotDetected) C. pneumoniae DNA (PCR) Not Detected (NotDetected) Coronavirus OC43 (PCR) Not Detected (NotDetected) Coronavirus HKU1 (PCR) Not Detected (NotDetected) Coronavirus 229E (PCR) Not Detected (NotDetected) SARS-CoV-2 (PCR) Not Detected (NotDetected) Coronavirus NL63 (PCR) Not Detected (NotDetected) Human Metapneumovir PCR Not Detected (NotDetected) Influenza Type A (PCR) Not Detected (NotDetected) Influenza Type B (PCR) Not Detected (NotDetected) M. pneumoniae (PCR) Not Detected (NotDetected) Parainfluenza 1 (PCR) Not Detected (NotDetected) Parainfluenza 2 (PCR) Not Detected (NotDetected) Parainfluenza 3 (PCR) Not Detected (NotDetected) Parainfluenza 4 (PCR) Not Detected (NotDetected) RSV (PCR) Not Detected (NotDetected) Entero/Rhino (PCR) Not Detected (NotDetected) Blood Type AB Positive Antibody Screen NEGATIVE Administered Medications Discontinued Medications Furosemide (Furosemide 40 Mg/4 Ml Vial) 40 mg IV ONE ONE Stop: 04/03/24 11:11 Last Admin: 04/03/24 11:27 Dose: 40 mg Documented By: SRI Ceftriaxone Sodium (Rocephin) 1,000 mg in 50 mls @ 100 mls/hr IV NOW STA Stop: 04/03/24 10:49 Last Infusion: 04/03/24 11:27 Dose: Infused Documented By: Admin: 04/03/24 10:43 Dose: 100 mls/hr Documented By: RAS Imaging Data Radiologist's Impression: Chest X-Ray 04/03/24 09:21 SINGLE VIEW CHEST CLINICAL HISTORY: Dyspnea FINDINGS: An AP, portable, upright chest radiograph is compared to study dated 03/31/2024 and correlated with chest CT dated 04/03/2020. The heart is enlarged noting atherosclerotic calcification of the thoracic aorta. There is mild pulmonary vascular congestion. Chronic interstitial thickening is similar to previous. Scarring/atelectasis is noted at the lung bases. No airspace consolidation or large pleural effusion is identified. No pneumothorax is seen. The skeletal structures are osteopenic. The bony thorax is grossly intact. IMPRESSION: Cardiomegaly with mild pulmonary vascular congestion. ACT 112: Negative or not required by law. Electronically signed by: Milan Rivera M.D. 04/03/2024 9:46 AM Abdomen/Pelvis CT 04/03/24 10:09 CT SCAN OF THE ABDOMEN AND PELVIS WITHOUT IV CONTRAST CLINICAL HISTORY: Hematuria COMPARISON STUDY: Abdominal CT dated 12/15/2015. TECHNIQUE: CT scan of the abdomen and pelvis is performed from the lung bases to the proximal femora. Images are reviewed in the axial, sagittal, and coronal planes. IV contrast was not administered for this examination. A dose lowering technique was utilized adhering to the principles of ALARA. CT DOSE: 1344.11 mGy.cm FINDINGS: Lung bases: The heart is enlarged and without pericardial effusion. The coronary arteries are densely calcified. Fat deposition within the left ventricular myocardium suggests previous ischemia. There are trace pleural effusions with dependent atelectasis. A calcified granuloma is noted at the right lung base. There is bibasilar probable scarring. No airspace consolidation is seen typical for pneumonia. A 7 mm left basilar pulmonary nodule on image #51 is unchanged dating back to 2016 and of low suspicion. There is a small hiatal hernia. Liver: The unenhanced liver is normal in size, contour, and attenuation. There is no intrahepatic biliary ductal dilatation. Gallbladder: There are numerous calcified gallstones with no CT evidence of acute cholecystitis. Spleen: Normal in size and attenuation. There are calcified splenic granulomas. Pancreas: The unenhanced pancreas is mildly atrophic and grossly unremarkable. Adrenal glands: Unremarkable. Kidneys: The unenhanced kidneys demonstrated mild cortical atrophy and are without hydronephrosis. There are at least 7 nonobstructing right renal calculi which measure up to 6 mm. No left ureteral calculi are clearly identified. There are left-sided renal vascular calcifications. No ureteral stone is seen. A 5.7 cm exophytic cyst is seen on the left. Abdominal vasculature: There is advanced atherosclerotic calcification and ectasia of the abdominal aorta. Bowel: There is advanced colonic diverticulosis. There is wall thickening of the sigmoid colon with mild surrounding inflammation, which could represent acute versus subacute/chronic diverticulitis. No fluid collection is seen to indicate abscess. There are mildly enlarged pericolonic lymph nodes above the sigmoid which measure up to 7 mm. No bowel obstruction is seen. The appendix is well- visualized and normal. A chronically torsed epiploic appendage is seen posterior to the descending colon on image #210. Peritoneum: There is no intraperitoneal free air or abdominal ascites. There is a fat-containing umbilical hernia. Lymphadenopathy: None. Pelvic viscera: The prostate gland is enlarged and heterogeneous. Layering hyperdense debris is seen within the bladder, likely representing blood clots. The bladder wall is thickened/trabeculated indicating chronic outlet obstruction. Small bladder diverticula and measure up to 11 mm. There are bilateral fat-containing inguinal hernias. Skeletal structures: The skeletal structures are osteopenic. There is moderate lumbosacral spondylosis. No lytic or blastic lesions are seen. Chronic deformity and postsurgical change is seen in the right proximal femur. IMPRESSION: 1. Marked prostatomegaly with evidence of chronic bladder outlet obstruction. 2. Layering hyperdense debris within the bladder lumen likely represents blood products. This is of indeterminate etiology. Follow-up with urology is recommended. 3. Right-sided nephrolithiasis. No ureteral stone is seen. 4. Advanced colonic diverticulosis. There is wall thickening with mild inflammation around the sigmoid colon which could represent acute versus subacute/chronic diverticulitis. Clinical correlation will be required. If not recently performed, a follow-up colonoscopy is recommended for further evaluation of the underlying colonic mucosa. 6. No intraperitoneal free air is seen and there is no fluid collection to suggest abscess. 7. Cardiomegaly. 8. Cholelithiasis. 9. Additional findings as above. ACT 112: Negative or not required by law. Electronically signed by: Milan Rivera M.D. 04/03/2024 11:04 AM Discharge Plan Visit Data Chief Complaint: Hematuria Stated Complaint: blood in urine, ref by doc ED Provider: David Nicholson Discharge Problem: Elevated troponin, Acute UTI Forms Stand Alone Forms: [facility] Prescriptions Prescriptions: No Action levothyroxine 50 mcg tablet See Rx Instructions .ROUTE .COMPLEX Qty: 90 3RF Dose Instruction: TAKE 1 TABLET BY MOUTH EVERY MORNING AT 630AM Rx Instructions: TAKE 1 TABLET BY MOUTH EVERY MORNING AT 630AM escitalopram oxalate 10 mg tablet See Rx Instructions .ROUTE .COMPLEX Qty: 90 3RF Dose Instruction: TAKE 1 TABLET BY MOUTH EVERY DAY FOR ANXIETY Rx Instructions: TAKE 1 TABLET BY MOUTH EVERY DAY FOR ANXIETY desoximetasone 0.25 % cream 1 applic TOP BID PRN (Reason: rash) Qty: 15 2RF zolpidem 6.25 mg tablet,ext release multiphase 6.25 mg PO HS Qty: 90 0RF finasteride 5 mg tablet See Rx Instructions .ROUTE .COMPLEX Qty: 90 3RF Dose Instruction: TAKE 1 TABLET BY MOUTH CHRIS Rx Instructions: TAKE 1 TABLET BY MOUTH CHRIS tamsulosin 0.4 mg capsule 0.4 mg PO DAILY Qty: 90 3RF epinephrine [EpiPen 2-Prabhu] 0.3 mg/0.3 mL auto-injector 0.3 mg IM Q10M PRN (Reason: anaphylaxis) Qty: 2 0RF Rx Instructions: for 2 doses betamethasone dipropionate 0.05 % lotion 1 applic topical DAILY Qty: 60 1RF Rx Instructions: Apply to areas of the scalp once daily as needed for itching as directed furosemide 20 mg tablet 20 mg PO BID 7 Days Qty: 14 3RF zinc 50 mg Tablet 50 mg PO QAM coenzyme Q10 [CoQ-10] 100 mg Capsule 100 mg PO QAM omega-3 fatty acids Capsule 1,000 mg PO DAILY Vitamin D3 1 tab PO QAM calcium carbonate-vitamin D3 600 mg(1,500mg) -200 unit Tablet 1 tab PO QAM cod liver oil 240-1,000 mg Capsule 1 cap PO QAM atorvastatin 80 mg tablet 80 mg PO HS Referrals Referrals: PCP,NO [Physician] -
[2024-04-03 09:47] LABS: Base Excess VBG 4.2 mEq/L; HCO3 VBG 30 mmol/L; Oxygen Saturation VBG < 60.0 %; PCO2 VBG 50 mmHg (38-50); PO2 VBG 35 mmHg; pH VBG 7.39 (7.36-7.41)
--- NOTE | 2024-04-03 09:47 | XRay Report ---
SINGLE VIEW CHEST CLINICAL HISTORY: Dyspnea FINDINGS: An AP, portable, upright chest radiograph is compared to study dated 03/31/2024 and correlat ed with chest CT dated 04/03/2020. The heart is enlarged noting atherosclerotic calcification of the t horacic aorta. There is mild pulmonary vascular congestion. Chronic interstitial thickening is simila r to previous. Scarring/atelectasis is noted at the lung bases. No airspace consolidation or large pl eural effusion is identified. No pneumothorax is seen. The skeletal structures are osteopenic. The [facility] thorax is grossly intact. IMPRESSION: Cardiomegaly with mild pulmonary vascular congestion. ACT 112: Negative or not required by law. Electronically signed by: Milan Rivera M.D. 04/03/2024 9:46 AM
[2024-04-03 09:51] LABS: Basophils # (auto) 0.04 K/uL (0.00-0.20); Basophils % (auto) 0.6 %; Eosinophils % (auto) 3.2 %; Hemoglobin 13.1 g/dl (14.0-18.0); Immature Granulocytes # (auto) 0.02 K/uL (0.01-0.20); Immature Granulocytes % (auto) 0.3 %; Lymphocytes # (auto) 0.72 K/uL (1.20-3.40); Lymphocytes % (auto) 11.4 %; Mean Corpuscular Hemoglobin 28.4 pg (25.0-34.0); Mean Corpuscular Hgb Conc 31.2 g/dL (32.0-36.0); Mean Corpuscular Volume 91.1 fL (80.0-100.0); Monocytes # (auto) 0.62 K/uL (0.11-0.59); Monocytes % (auto) 9.8 %; Neutrophils # (auto) 4.74 K/uL (1.40-6.50); Neutrophils % (auto) 74.7 %; Platelet Count 216 K/uL (130-400); RDW Coefficient of Variation 14.7 % (11.5-14.5); RDW Standard Deviation 48.3 fL (36.4-46.3); Red Blood Count 4.61 M/uL (4.70-6.10); White Blood Count 6.34 K/ul (4.8-10.8)
[2024-04-03 09:58] LABS: Appearance Urine Cloudy (Clear); Bilirubin Urine Negative (Negative); Blood Urine 3+ (Negative); Color Urine Red; Glucose Urine UA Negative (Negative); Ketones Urine Negative (Negative); Leukocyte Esterase Urine Trace (Negative); Nitrite Urine Positive (Negative); Protein Urine 3+ (Negative); Specific Gravity Urine 1.025 (1.000-1.030); Urobilinogen Urine Positive (Negative)
[2024-04-03 10:07] LABS: Albumin Globulin Ratio 1.1 (0.9-2); Albumin Level 3.9 gm/dl (3.4-5.0); BUN Creatinine Ratio 29.6 (10-20); Bilirubin,Total 1.1 mg/dl (0.2-1.0); Calcium 9.4 mg/dl (8.6-10.3); Creatinine Clr Calc Pharmacy 50.2 ml/min; Est GFR (African American) 65.9 ml/min; Est GFR (Non-African American) 56.9 ml/min; Globulin 3.6 gm/dl (2.5-4.0); Potassium 4.1 mmol/L (3.5-5.1); Total Protein 7.5 gm/dl (6.0-8.3)
[2024-04-03 10:09] LABS: RBC Urine >20 /hpf (0-2)
[2024-04-03 10:11] LABS: Bacteria Urine 2+ (None Seen); Epithelial Cell Urine 0-2 /hpf (0-2)
[2024-04-03 10:25] LABS: INR 1.2 (0.9-1.1); Prothrombin Time 13.2 Seconds (9.0-12.0)
[2024-04-03] MEDS: cefTRIAXone SODIUM 1,000 MG/50 ML BAG IV STA (10:43)
--- NOTE | 2024-04-03 11:06 | CT Scan Report ---
CT SCAN OF THE ABDOMEN AND PELVIS WITHOUT IV CONTRAST CLINICAL HISTORY: Hematuria COMPARISON STUDY: Abdominal CT dated 12/15/2015. TECHNIQUE: CT scan of the abdomen and pelvis is performed from the lung bases to the proximal femora. Images are reviewed in the axial, sagittal, and coronal planes. IV contrast was not administered for this examination. A dose lowering technique was utilized adhering to the principles of ALARA. CT DOSE: 1344.11 mGy.cm FINDINGS: Lung bases: The heart is enlarged and without pericardial effusion. The coronary arteries are densely calcified. Fat deposition within the left ventricular myocardium suggests previous ischemia. There a re trace pleural effusions with dependent atelectasis. A calcified granuloma is noted at the right lacey ng base. There is bibasilar probable scarring. No airspace consolidation is seen typical for pneumoni a. A 7 mm left basilar pulmonary nodule on image #51 is unchanged dating back to 2015 and of low susp icion. There is a small hiatal hernia. Liver: The unenhanced liver is normal in size, contour, and attenuation. There is no intrahepatic shay iary ductal dilatation. Gallbladder: There are numerous calcified gallstones with no CT evidence of acute cholecystitis. Spleen: Normal in size and attenuation. There are calcified splenic granulomas. Pancreas: The unenhanced pancreas is mildly atrophic and grossly unremarkable. Adrenal glands: Unremarkable. Kidneys: The unenhanced kidneys demonstrated mild cortical atrophy and are without hydronephrosis. Th ere are at least 7 nonobstructing right renal calculi which measure up to 6 mm. No left ureteral calc ade are clearly identified. There are left-sided renal vascular calcifications. No ureteral stone is seen. A 5.7 cm exophytic cyst is seen on the left. Abdominal vasculature: There is advanced atherosclerotic calcification and ectasia of the abdominal a xavier. Bowel: There is advanced colonic diverticulosis. There is wall thickening of the sigmoid colon with m ild surrounding inflammation, which could represent acute versus subacute/chronic diverticulitis. No fluid collection is seen to indicate abscess. There are mildly enlarged pericolonic lymph nodes above the sigmoid which measure up to 7 mm. No bowel obstruction is seen. The appendix is well-visualized and normal. A chronically torsed epiploic appendage is seen posterior to the descending colon on tra ge #[id number]. Peritoneum: There is no intraperitoneal free air or abdominal ascites. There is a fat-containing umbi lical hernia. Lymphadenopathy: None. Pelvic viscera: The prostate gland is enlarged and heterogeneous. Layering hyperdense debris is seen within the bladder, likely representing blood clots. The bladder wall is thickened/trabeculated indic ating chronic outlet obstruction. Small bladder diverticula and measure up to 11 mm. There are bilate ral fat-containing inguinal hernias. Skeletal structures: The skeletal structures are osteopenic. There is moderate lumbosacral spondylosi s. No lytic or blastic lesions are seen. Chronic deformity and postsurgical change is seen in the rig ht proximal femur. IMPRESSION: 1. Marked prostatomegaly with evidence of chronic bladder outlet obstruction. 2. Layering hyperdense debris within the bladder lumen likely represents blood products. This is of i ndeterminate etiology. Follow-up with urology is recommended. 3. Right-sided nephrolithiasis. No ureteral stone is seen. 4. Advanced colonic diverticulosis. There is wall thickening with mild inflammation around the sigmoi d colon which could represent acute versus subacute/chronic diverticulitis. Clinical correlation will be required. If not recently performed, a follow-up colonoscopy is recommended for further evaluatio n of the underlying colonic mucosa. 6. No intraperitoneal free air is seen and there is no fluid collection to suggest abscess. 7. Cardiomegaly. 8. Cholelithiasis. 9. Additional findings as above. ACT 112: Negative or not required by law. Electronically signed by: Milan Rivera M.D. 04/03/2024 11:04 AM
--- NOTE | 2024-04-03 11:22 | History & Physical Report ---
Date of Service April 03, 2024 Assessment & Plan (1) Gross hematuria: Plan: Admit to med/tele on pulse oximetry Currently stable on 2 L nasal cannula and otherwise stable Presented to the ED with 48 hours of ongoing gross hematuria with wreak current passage of blood clots, and increased urinary frequency Patient did not start systemic anticoagulation for his recent diagnosis of atrial flutter prior to symptoms starting CT of the abdomen pelvis without contrast shows chronic prostamegaly with bladder outlet obstruction with debris in the bladder likely consistent with further blood clots, no acute renal abnormalities noted besides 7 nonobstructing right renal calculi. Patient does appear to have a UTI on UA today Patient passed several blood clots while I was in the room with him, causing him significant pain/distress Will have nursing staff place three-way Rodas now, as I suspect he will require CBI during this admission Urology has been consulted with the patient's history of bladder cancer he will likely need cystoscopy Hemoglobin has been stable, will obtain type/screen and repeat CBC this evening to ensure his hemoglobin is not dropping, if so, we will obtain blood consent and monitor hemoglobin every 6 hours overnight Hold anticoagulation at this time, bilateral MAKEDA stockings for DVT prophylaxis for now Heart healthy diet with 2 g sodium 1800 mL fluid restriction AM CBC, CMP, mag, PTT/INR (2) Hypoxia: Plan: Patient was noted to be hypoxic with SpO2 in the high 80s on arrival Does not typically require oxygen at home Patient has been experiencing increased shortness of breath/dyspnea on exertion since his COVID diagnosis while in [place] approximately 6 to 7 weeks ago He is in no respiratory distress, denies chest discomfort, without productive cough Chest x-ray today shows cardiomegaly with mild pulmonary vascular congestion Patient does examine as volume overloaded today Hypoxia is most likely due to acute exacerbation of chronic heart failure with preserved ejection fraction as patient is not compliant with a heart healthy/fluid restricted diet Patient has had recent long travel, will consider PE moving forward however, he has been hemodynamically stable, without pleuritic chest pain, and with heart rate within normal limits off of rate limiting medications Will obtain bilateral lower extremity venous Dopplers to monitor for DVT, if positive or if patient has clinical decline will obtain stat CTA of the chest with PE protocol Status post 40 mg IV Lasix in the ED, will continue with 20 mg IV twice daily moving forward for now Will obtain echocardiogram on admission Monitor intake output every shift, daily weights Heart healthy diet with 2 g sodium and 1800 mL fluid restriction for now Incentive spirometry, as needed O2 to keep SpO2 at or above 92% (3) Elevated troponin: Plan: Initial high-sensitivity troponin elevated at 55, 2-hour repeat at 59 Patient denies chest pain/discomfort, but has been experiencing ongoing shortness of breath/dyspnea on exertion No acute ST segment or T wave changes on EKG today Low suspicion for ACS at this time, elevated troponin likely due to demand from suspected acute on chronic heart failure with preserved ejection fraction exacerbation Will repeat another high-sensitivity troponin in approximately 6 hours, if stable will stop trending for now Continue to monitor on telemetry for now and will follow echocardiogram ordered on admission (4) Generalized weakness: Plan: Patient has been experiencing ongoing generalized weakness since his hospitalization in [place] for COVID-19 infection Denies recent weight loss, fever/chills, night sweats Suspect this has been multifactorial including acute UTI, ongoing hypoxia, and hypomagnesemia noted on admission Cannot rule out recurrent malignancy with his history of both bladder and tongue cancer Urology has been consulted for gross hematuria Monitor for improvement with treatment of his acute/reversible findings at this time Fall/aspiration precautions, PT/OT consults (5) Atrial flutter: Plan: Patient was reportedly diagnosed with new onset atrial flutter during his hospitalization in [place] for COVID-19 Patient was prescribed Eliquis while in [place] however, he did not start this as of today as he was hesitant due to not understanding discharged instructions while in [place] Patient is currently in rate controlled atrial flutter today Will have to hold systemic anticoagulation at this time with gross hematuria, this should be restarted when he is safe for bleeding perspective Continue monitor on telemetry for now, potassium is currently stable at 4.1, but magnesium ordered on admission is 1.6 Will give 3 total bags of 1 g IV mag sulfate on admission Monitor a.m. renal function electrolytes (6) UTI (urinary tract infection): Plan: UA consistent with acute UTI today Possibly causing his gross hematuria Likely due to chronic bladder outlet obstruction No previous history of resistant UTIs in our system, will continue with ceftriaxone for now Follow urine cultures obtained in the ED Rest of care per gross hematuria plan (7) (HFpEF) heart failure with preserved ejection fraction: Plan: See hypoxia plan (8) Hypothyroidism: Plan: Continue levothyroxine (9) HTN (hypertension): Plan: Currently stable Is not on antihypertensives outpatient, continue to monitor for now Plan The patient was discussed with Dr. 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 The patient was reportedly diagnosed with new onset atrial flutter while hospitalized in [place] and was prescribed Eliquis, however, he reportedly did not start this. On arrival to the ED, he was noted to be mildly hypotensive at 102/59, hypoxic at 89% on room air, but otherwise stable. Labs were significant for a stable hemoglobin at 13.1, VBG within normal limits, initial high sensitive troponin of 55, BNP of 603 (improved compared to 864 as of 03/31/2024), and UA with cloudy appearance, 3+ protein, 3+ blood, nitrate positive, urobilinogen positive, trace leukocyte esterase, greater than 20 RBC, 610 WBC, and 2+ bacteria. CT of the abdomen and pelvis without contrast was read as "1. Marked prostatomegaly with evidence of chronic bladder outlet obstruction. 2. Layering hyperdense debris within the bladder lumen likely represents blood products. This is of indeterminate etiology. Follow-up with urology is recommended. 3. Right-sided nephrolithiasis. No ureteral stone is seen. 4. Advanced colonic diverticulosis. There is wall thickening with mild inflammation around the sigmoid colon which could represent acute versus subacute/chronic diverticulitis. Clinical correlation will be required. If not recently performed, a follow-up colonoscopy is recommended for further evaluation of the underlying colonic mucosa. 6. No intraperitoneal free air is seen and there is no fluid collection to suggest abscess. 7. Cardiomegaly. 8. Cholelithiasis. 9. Additional findings as above.". Chest x-ray was read as cardiomegaly with mild pulmonary vascular congestion. EKG showed atrial flutter with T wave inversions in the anterior leads. Prior to admission the patient was given a dose of cef triaxone and ordered 40 mg IV lasix. Patient was sitting in bed in no acute distress at the time exam, currently stable on 2 L nasal cannula. Confirms the above history, states that he started developing gross hematuria approximately 48 hours ago. Called his PCP yesterday evening who directed him to come to the ER last night but he wanted to wait until this morning. Confirms that he never started the Eliquis that was initially prescribed approximately 6 weeks ago in [place] for new onset atrial flutter with COVID-19. He explains that his providers and when [place] did not adequately explain the medication and he was hesitant to start it [place]. Since having COVID, he has been having increased fatigue, shortness of breath/dyspnea exertion. Does not comply with a sodium or fluid restricted diet. Has not been taking 20 mg p.o. Lasix daily, was instructed to increase to 40 mg p.o. daily by his PCP on 03/31/2024, he did not have his a.m. dose prior to arrival. Denies recent fever, chills, chest pain, productive cough, pleuritic chest pain, abdominal pain, nausea/vomiting, decreased appetite, weight loss, abdominal pain, diarrhea, melena, and recent trauma. We discussed CODE STATUS, he wishes to be a DNR/DNI and for his to make medical decisions for him if he cannot make himself. Please refer to Dr. Henderson's attestation for any changes to the treatment plan. Allergies Allergy/AdvReac Type Severity Reaction Status Date / Time No Known Allergies Allergy Verified 04/09/24 13:35 Home Medications Medication Instructions Recorded Confirmed Type epinephrine 0.3 mg/0.3 mL 0.3 mg (0.3 mL) IM Q10M PRN 09/27/20 04/09/24 Rx injection, auto-injector (EpiPen anaphylaxis #2 ea [id number]) Vitamin D3 1 tab PO QAM 04/10/21 04/09/24 History calcium carbonate 600 mg-vitamin 1 tab PO QAM 04/10/21 04/09/24 History D3 5 mcg (200 unit) tablet coenzyme Q10 100 mg capsule 100 mg PO QAM 04/10/21 04/09/24 History (CoQ-10) omega-3 240 rd-tld-upl-cod liver 1 cap PO QAM 04/10/21 04/09/24 History oil 1,000 mg-vit A-vit D3 capsule (cod liver oil) omega-3 fatty acids 1,000 mg PO DAILY 04/10/21 04/09/24 History zinc 50 mg tablet 50 mg PO QAM 04/10/21 04/09/24 History levothyroxine 50 mcg tablet See Rx Instructions .Route 12/25/22 04/09/24 Rx .COMPLEX #90 tabs escitalopram oxalate 10 mg tablet See Rx Instructions .Route 03/14/23 04/09/24 Rx .COMPLEX #90 tabs desoximetasone 0.25 % topical cream 1 applic topical BID PRN rash #15 07/26/23 04/09/24 Rx grams zolpidem 6.25 mg tablet,extended 6.25 mg PO HS SLEEP #90 tabs 01/14/24 04/09/24 Rx release,multiphase finasteride 5 mg tablet See Rx Instructions .Route 03/06/24 04/09/24 Rx .COMPLEX #90 tabs tamsulosin 0.4 mg capsule 0.4 mg PO DAILY #90 caps 03/06/24 04/09/24 Rx betamethasone dipropionate 0.05 % 1 applic topical DAILY #60 mL 03/26/24 04/09/24 Rx lotion atorvastatin 80 mg tablet 80 mg PO HS 04/03/24 04/09/24 History apixaban 5 mg tablet (Eliquis) 5 mg PO BID #60 tabs 04/08/24 04/09/24 Rx cefdinir 300 mg capsule 300 mg PO BID #4 caps 04/08/24 04/09/24 Rx furosemide 40 mg tablet (Lasix) 40 mg PO BID #60 tabs 04/08/24 04/09/24 Rx Past Med/Surg History Problem List (Updated 04/06/24 @ 23:25 by Justina Knapp MD) Mallet deformity of right little finger Abnormal CT of the abdomen Acute respiratory failure with hypoxia Acute diastolic CHF (congestive heart failure) Nephrolithiasis Acute UTI (Acute) Elevated troponin (Acute) Generalized weakness Gross hematuria Atrial flutter (HFpEF) heart failure with preserved ejection fraction Hematuria (Acute) Lumbar canal stenosis (Chronic) Impaired fasting glucose (Chronic) Hypothyroidism (Chronic) HTN (hypertension) (Chronic) Hyperlipidemia (Chronic) Chemotherapy-induced neutropenia (Chronic) Asymptomatic stenosis of right carotid artery (Chronic) Arteriosclerosis of coronary artery (Chronic) Hypoxia (Acute) Near syncope (Acute) Nausea (Acute) Hypersensitivity pneumonitis Pre-syncope Pulmonary nodules Encounter for pre-operative examination Hx of bladder cancer (Acute) Medical History BPH (benign prostatic hyperplasia) Carotid stenosis Fracture of right hip requiring operative repair History of SCC (squamous cell carcinoma) of skin Hyperlipidemia Hypothyroidism Myocardial Infarction (~1978) Squamous cell cancer of tongue (~2014) Surgical History History of cardiac cath History of carotid endarterectomy History of cataract surgery History of colonoscopy History of cystoscopy History of open reduction and internal fixation (ORIF) procedure History of prostate biopsy History of surgery on wrist (~1974) History of tonsillectomy Status post Mohs surgery Family History Other Family history not known due to adoption Social History Smoking Status: Never smoker Tobacco Type: Cigarettes Age Started Using Tobacco: 22; Age Quit Using Tobacco: 51; Second Hand Exposure: Yes; Do You Dip or Chew Tobacco: No; Hx Alcohol Use: Yes Alcohol type: beer and wine Alcohol Intake Frequency: 4 or More x per/Week Hx Substance Use: No Preferred Language: Swedish Communication Ability: Effective Visual Impairment: Limited Hearing Ability: Use of Hearing Aid Client Support Consultant Required: No Beliefs That Will Affect Care: None marital status: Current Living Situation: Spouse current occupational status: employed current occupation: [employer] How many Children do You have: 2 Feels Safe at Home: Yes Childhood Exposure to Second-Hand Smoke: No caffeine: Yes (coffee) Dental Care, Regularly: Yes Physical Activity Frequency: 3-4 Times per Week Physical Activity Frequency Comment: does a lot of yardwork in the summer time Seatbelt Use: always Sunscreen Use: No Assistive Devices: None Physical Exam Physical Exam: Physical Exam: General: In no acute distress, stated age, chronically ill appearing but non- toxic HEENT: Normocephalic, atraumatic, no scleral icterus, pupils around round, symmetrical, and reactive to light, moist mucus membranes, +JVD, trachea midline, no thyromegaly Chest/Pulm: No respiratory distress, symmetrical chest expansion, crackles noted in the BL lower and mid lung heck, otherwise CTA Cardiac: RRR, no murmurs noted Abdomen: Negative for ascites and bruising, normoactive bowel sounds, soft, non-tender to palpation throughout Musculoskeletal: Patient with splint on the right 5th finger due to fall approximately 6 weeks ago Extremities: Radial, dorsalis pedis, and posterior tibial pulses are intact and symmetrical, no pitting edema noted in the BL LE's Skin: Warm, dry, no rashes , lesions, or scars noted Neuro: Alert and oriented to person, place, month, year, and president, no focal defects, no tremors noted Psych: No acute distress, calm and cooperative during the exam Results & Data Results & Data Vital Signs (Past 12 Hours) Vital Signs Temp Pulse Pulse Resp BP BP Pulse Ox 04/03/24 09:30 70 16 94 04/03/24 09:30 70 16 146/78 H 95 04/03/24 09:28 70 04/03/24 09:04 36.5 C 72 15 102/59 L 89 L O2 Del Method O2 Flow Rate 04/03/24 09:30 Nasal Cannula 2 04/03/24 09:30 Nasal Cannula 2 04/03/24 09:28 04/03/24 09:04 Room Air Laboratory Results Abnormal lab results 04/03/24 04/03/24 Range/Units 09:30 11:30 RBC 4.61 L (4.70-6.10) M/uL Hgb 13.1 L (14.0-18.0) g/dl MCHC 31.2 L (32.0-36.0) g/dL RDW Std Deviation 48.3 H (36.4-46.3) fL RDW Coeff of Kay 14.7 H (11.5-14.5) % Lymph # (Auto) 0.72 L (1.20-3.40) K/uL [place] # (Auto) 0.62 H (0.11-0.59) K/uL PT 13.2 H (9.0-12.0) Seconds INR 1.2 H (0.9-1.1) BUN 34 H (6-23) mg/dl BUN/Creatinine Ratio 29.6 H (10-20) Glucose 141 H (70-99(Fasting)) mg/dl Magnesium 1.6 L (1.7-2.4) mg/dl Total Bilirubin 1.1 H (0.2-1.0) mg/dl Alkaline Phosphatase 116 H (34-104) U/L Troponin I High Sens 55.0 H* (0-20) pg/ml B-Natriuretic Peptide 603 H (0-100) pg/ml Urine Appearance Cloudy A (Clear) Urine Protein 3+ H (Negative) Urine Blood 3+ H (Negative) Urine Nitrite Positive A (Negative) Urine Urobilinogen Positive H (Negative) Ur Leukocyte Esterase Trace H (Negative) Urine RBC >20 H (0-2) /hpf Urine WBC 6-10 H (0-5) /hpf Urine Bacteria 2+ H (None Seen) Diagnostic Findings Chest X-Ray 04/03/24 09:21 SINGLE VIEW CHEST CLINICAL HISTORY: Dyspnea FINDINGS: An AP, portable, upright chest radiograph is compared to study dated 03/31/2024 and correlated with chest CT dated 04/03/2020. The heart is enlarged noting atherosclerotic calcification of the thoracic aorta. There is mild pulmonary vascular congestion. Chronic interstitial thickening is similar to previous. Scarring/atelectasis is noted at the lung bases. No airspace consolidation or large pleural effusion is identified. No pneumothorax is seen. The skeletal structures are osteopenic. The bony thorax is grossly intact. IMPRESSION: Cardiomegaly with mild pulmonary vascular congestion. ACT 112: Negative or not required by law. Electronically signed by: Milan Rivera M.D. 04/03/2024 9:46 AM Abdomen/Pelvis CT 04/03/24 10:09 CT SCAN OF THE ABDOMEN AND PELVIS WITHOUT IV CONTRAST CLINICAL HISTORY: Hematuria COMPARISON STUDY: Abdominal CT dated 12/15/2015. TECHNIQUE: CT scan of the abdomen and pelvis is performed from the lung bases to the proximal femora. Images are reviewed in the axial, sagittal, and coronal planes. IV contrast was not administered for this examination. A dose lowering technique was utilized adhering to the principles of ALARA. CT DOSE: 1344.11 mGy.cm FINDINGS: Lung bases: The heart is enlarged and without pericardial effusion. The coronary arteries are densely calcified. Fat deposition within the left ventricular myocardium suggests previous ischemia. There are trace pleural effusions with dependent atelectasis. A calcified granuloma is noted at the right lung base. There is bibasilar probable scarring. No airspace consolidation is seen typical for pneumonia. A 7 mm left basilar pulmonary nodule on image #51 is unchanged dating back to 2016 and of low suspicion. There is a small hiatal hernia. Liver: The unenhanced liver is normal in size, contour, and attenuation. There is no intrahepatic biliary ductal dilatation. Gallbladder: There are numerous calcified gallstones with no CT evidence of acute cholecystitis. Spleen: Normal in size and attenuation. There are calcified splenic granulomas. Pancreas: The unenhanced pancreas is mildly atrophic and grossly unremarkable. Adrenal glands: Unremarkable. Kidneys: The unenhanced kidneys demonstrated mild cortical atrophy and are without hydronephrosis. There are at least 7 nonobstructing right renal calculi which measure up to 6 mm. No left ureteral calculi are clearly identified. There are left-sided renal vascular calcifications. No ureteral stone is seen. A 5.7 cm exophytic cyst is seen on the left. Abdominal vasculature: There is advanced atherosclerotic calcification and ectasia of the abdominal aorta. Bowel: There is advanced colonic diverticulosis. There is wall thickening of the sigmoid colon with mild surrounding inflammation, which could represent acute versus subacute/chronic diverticulitis. No fluid collection is seen to indicate abscess. There are mildly enlarged pericolonic lymph nodes above the sigmoid which measure up to 7 mm. No bowel obstruction is seen. The appendix is well- visualized and normal. A chronically torsed epiploic appendage is seen posterior to the descending colon on image #210. Peritoneum: There is no intraperitoneal free air or abdominal ascites. There is a fat-containing umbilical hernia. Lymphadenopathy: None. Pelvic viscera: The prostate gland is enlarged and heterogeneous. Layering hyperdense debris is seen within the bladder, likely representing blood clots. The bladder wall is thickened/trabeculated indicating chronic outlet obstruction. Small bladder diverticula and measure up to 11 mm. There are bilateral fat-containing inguinal hernias. Skeletal structures: The skeletal structures are osteopenic. There is moderate lumbosacral spondylosis. No lytic or blastic lesions are seen. Chronic deformity and postsurgical change is seen in the right proximal femur. IMPRESSION: 1. Marked prostatomegaly with evidence of chronic bladder outlet obstruction. 2. Layering hyperdense debris within the bladder lumen likely represents blood products. This is of indeterminate etiology. Follow-up with urology is recommended. 3. Right-sided nephrolithiasis. No ureteral stone is seen. 4. Advanced colonic diverticulosis. There is wall thickening with mild inflammation around the sigmoid colon which could represent acute versus subacute/chronic diverticulitis. Clinical correlation will be required. If not recently performed, a follow-up colonoscopy is recommended for further evaluation of the underlying colonic mucosa. 6. No intraperitoneal free air is seen and there is no fluid collection to suggest abscess. 7. Cardiomegaly. 8. Cholelithiasis. 9. Additional findings as above. ACT 112: Negative or not required by law. Electronically signed by: Milan Rivera M.D. 04/03/2024 11:04 AM ECG Additional Comments: Atrial flutter Left ventricular hypertrophy with repolarization abnormality ( Sokolow-Rivas , Abelardo product ) Abnormal ECG When compared with ECG of 2019 09:44, Atrial flutter has replaced Sinus rhythm T wave inversion now evident in Anterior leads T wave inversion less evident in Lateral leads Code Status & VTE Plan Code Status DNR/DNI VTE Prophylaxis Plan VTE Prophylaxis will be ordered: Yes Supervising Physician Co-Signing Physician Notes I personally saw and examined the patient. I verified all mai points and agree with Priyank Madera PA-C with the following exceptions and/or additions: 88 year old male presents to the ER with gross hematuria 48 hours ago. Recently diagnosed atrial flutter but not on anticoagulation. No taking Lasix as prescribed and weight and shortness of breath increasing. O/E HS RRR, no murmurs, Chest bibasal crackles, ABdo SNT, splint 5th finger, trace b/l pitting edema A/P Gross hematuria - improved throughout the day, hold antiplatelets/anticoagulation. Empiric ceftriaxone pending urine culture. HF unknown EF - Lasix 20mg IV BID, strict I&Os, daily weights, TTE Elevated troponin - no acute chest pain or shortness of breath to suggest ACS, continue to trend PG Care Time/CCT Total # of Minutes Spent Total Time Spent with Patient: Total time spent is greater than 50% in coordination of care (as documented) at patient's floor/unit and/or counseling patient: Coding [place] [address] INT INP/OBS CARE 375MIN Patient Type Established Medical Decision Making High Complexity Diagnoses Gross hematuria R31.0 Hypoxia R09.02 Elevated troponin R74.8 Generalized weakness R53.1 Atrial flutter I48.92 UTI (urinary tract infection) N39.0 (HFpEF) heart failure with preserved ejection fraction I50.30 Hypothyroidism E03.9 HTN (hypertension) I10
[2024-04-03] MEDS: FUROSEMIDE 40 MG/4 ML VIAL IV ONE (11:27)
[2024-04-03] MEDS ORDERED: ACETAMINOPHEN 325 MG TAB PO PRN (11:50)
[2024-04-03 12:00] LABS: Magnesium 1.6 mg/dl (1.7-2.4)
[2024-04-03 12:00] LABS: Adenovirus PCR Not Detected (NotDetected); Bordetella parapertussis PCR Not Detected (NotDetected); Bordetella pertussis PCR Not Detected (NotDetected); Chlamydia pneumoniae PCR Not Detected (NotDetected); Coronavirus 229E PCR Not Detected (NotDetected); Coronavirus CoV-2 (COVID19)PCR Not Detected (NotDetected); Coronavirus HKU1 PCR Not Detected (NotDetected); Coronavirus NL63 PCR Not Detected (NotDetected); Coronavirus OC43PCR Not Detected (NotDetected); Human Metapneumovirus PCR Not Detected (NotDetected); Influenza A PCR Not Detected (NotDetected); Influenza B PCR Not Detected (NotDetected); Mycoplasma pneumoniae PCR Not Detected (NotDetected); Parainfluenza Virus 1 PCR Not Detected (NotDetected); Parainfluenza Virus 2 PCR Not Detected (NotDetected); Parainfluenza Virus 3 PCR Not Detected (NotDetected); Parainfluenza Virus 4 PCR Not Detected (NotDetected); Respiratory Syncytial VirusPCR Not Detected (NotDetected); Rhinovirus/Enterovirus PCR Not Detected (NotDetected)
[2024-04-03 12:08] LABS: Troponin I High Sensitivity 59.8 pg/ml (0-20)
--- NOTE | 2024-04-03 13:27 | Ultrasound Report ---
US venous doppler LE BI CLINICAL HISTORY: Hypoxia, recent travel, please monitor for DVT's TECHNIQUE: Bilateral lower extremity real-time compression venous ultrasound with Color Doppler imagi ng. Utilizing real-time ultrasonic imaging multiple real time high-resolution ultrasonic images with compression and noncompression maneuvers of the deep venous system in addition to color doppler imagi ng were performed from the common femoral vein through the proximal calf veins. COMPARISON: Comparison is made to Doppler ultrasound 11/19/2015 FINDINGS/IMPRESSION: Currently there is normal compressibility of the deep venous system from the common femoral vein thro ugh the proximal calf veins. Soft tissue edema is seen in the bilateral lower legs. ACT 112: Negative or not required by law. Electronically signed by: Ketan Haney M.D. 04/03/2024 1:25 PM
--- NOTE | 2024-04-03 14:09 | Urology Consultation ---
Date of Consultation April 03, 2024 Assessment & Plan (1) Gross hematuria: He appears to be voiding reasonably well despite gross hematuria. Urine seems to be clearing with Lasix. I would recommend that he continue to monitor. If he develops retention, catheter could be replaced and hand irrigation performed to remove any clots. If he continues to void spontaneously, would monitor PVR to ensure he is emptying. With his history of bladder cancer, he will require hematuria workup, which can be completed as an outpatient. Hematuria certainly raises concern for possible recurrence, however other potential etiologies include acute UTI, bleeding from enlarged prostate. (2) Acute UTI: Agree with broad-spectrum antibiotics, narrow coverage as culture data becomes available. Would recommend checking PVR to make sure he is emptying well in order to help clear any infection or prevent further infections going forward. (3) Bladder cancer: Based on his description, it sounds like this was appropriately treated in the early . He will require hematuria workup to evaluate for any recurrence. (4) Nephrolithiasis: He has multiple, nonobstructing stones in the right kidney. These are small enough that they are unlikely to contribute to recurrent infections. If they were to move, he has good chance of passing them spontaneously. Would continue to manage expectantly for now. History of Present Illness Reason for Consultation: Gross hematuria, history of bladder cancer Attending Physician: Priyank Madera PA-C History of Present Illness This is an 88-year-old male who presented to the emergency department on 04/03/2024 with gross hematuria. He reports that the bleeding started on 04/01. There was no inciting trauma. He denies any pain or urinary symptoms. He has had some stringy clots but has been able to pass these spontaneously so far. He has a history of bladder cancer which was diagnosed in approximately 2003. He does not remember all the details, but it sounds like he underwent resection and subsequent BCG treatment at a local urologist and then at [facility]. He had surveillance for a few years afterwards with no evidence of recurrence. He did have an episode of gross hematuria several years ago but this resolved spontaneously and he has not had a recurrence since. Of note, he contracted COVID on a recent trip to [place] and has had prolonged fatigue afterwards. In the emergency department, he was noted to be fluid overloaded and was started on Lasix. He reports that with this he has been making more urine and the urine seems to have cleared. On his last void, he did not think there were any significant clots. Workup in the ED was notable for normal WBC (6.34). Hemoglobin was 13.1. Creatinine was within normal limits at 1.15. Urinalysis demonstrated 3+ blood, positive nitrites, 2+ bacteria. Urine cultures and blood cultures are pending. He had a CT scan of the abdomen and pelvis performed. I independently reviewed these images. Both kidneys are in normal position. There is a large cyst of the left kidney. He has multiple small stones in the right kidney that do not appear to be obstructing. The largest of these is 4 to 5 mm in diameterZ his bladder wall is mildly thickened and the bladder is partially distended. Near the dome there is a 11 mm nodule which may represent a urachal remnant. There is some hyperdense material on the posterior aspect which may represent blood clot. Prostate appears to be somewhat enlarged. Allergies Allergy/AdvReac Type Severity Reaction Status Date / Time No Known Allergies Allergy Verified 03/31/24 13:48 Home Medications Medication Instructions Recorded Confirmed Type epinephrine 0.3 mg/0.3 mL 0.3 mg (0.3 mL) IM Q10M PRN 09/27/20 04/03/24 Rx injection, auto-injector (EpiPen anaphylaxis #2 ea 2-Prabhu) Vitamin D3 1 tab PO QAM 04/10/21 04/03/24 History calcium carbonate 600 mg-vitamin 1 tab PO QAM 04/10/21 04/03/24 History D3 5 mcg (200 unit) tablet coenzyme Q10 100 mg capsule 100 mg PO QAM 04/10/21 04/03/24 History (CoQ-10) omega-3 240 io-kaq-bot-cod liver 1 cap PO QAM 04/10/21 04/03/24 History oil 1,000 mg-vit A-vit D3 capsule (cod liver oil) omega-3 fatty acids 1,000 mg PO DAILY 04/10/21 04/03/24 History zinc 50 mg tablet 50 mg PO QAM 04/10/21 04/03/24 History levothyroxine 50 mcg tablet See Rx Instructions .Route 12/25/22 04/03/24 Rx .COMPLEX #90 tabs escitalopram oxalate 10 mg tablet See Rx Instructions .Route 05/25/23 06/14/24 Rx .COMPLEX #90 tabs desoximetasone 0.25 % topical cream 1 applic topical BID PRN rash #15 07/26/23 04/03/24 Rx grams zolpidem 6.25 mg tablet,extended 6.25 mg PO HS SLEEP #90 tabs 01/14/24 04/03/24 Rx release,multiphase finasteride 5 mg tablet See Rx Instructions .Route 03/06/24 04/03/24 Rx .COMPLEX #90 tabs tamsulosin 0.4 mg capsule 0.4 mg PO DAILY #90 caps 03/06/24 04/03/24 Rx betamethasone dipropionate 0.05 % 1 applic topical DAILY #60 mL 03/26/24 04/03/24 Rx lotion furosemide 20 mg tablet 20 mg PO BID 1 week #14 tabs 03/31/24 04/03/24 Rx atorvastatin 80 mg tablet 80 mg PO HS 04/03/24 04/03/24 History Patient History Medical History BPH (benign prostatic hyperplasia) Carotid stenosis Fracture of right hip requiring operative repair History of SCC (squamous cell carcinoma) of skin Hyperlipidemia Hypothyroidism Myocardial Infarction (~1978) Squamous cell cancer of tongue (~2014) Surgical History History of cardiac cath History of carotid endarterectomy History of cataract surgery History of colonoscopy History of cystoscopy History of open reduction and internal fixation (ORIF) procedure History of prostate biopsy History of surgery on wrist (~1974) History of tonsillectomy Status post Mohs surgery Family History Other Family history not known due to adoption Social History Smoking Status: Former smoker Tobacco Type: Cigarettes Age Started Using Tobacco: 22; Age Quit Using Tobacco: 51; Second Hand Exposure: Yes; Do You Dip or Chew Tobacco: No; Hx Alcohol Use: Yes (2-3 glasses of wine or beer daily ) Alcohol type: wine Alcohol Intake Frequency: 4 or More x per/Week Hx Substance Use: No Preferred Language: B[place] Communication Ability: Effective Visual Impairment: Limited Hearing Ability: Use of Hearing Aid Wireless Sales Consultant Required: No Beliefs That Will Affect Care: None marital status: Current Living Situation: Spouse current occupational status: employed current occupation: [employer] How many Children do You have: 2 Feels Safe at Home: Yes Childhood Exposure to Second-Hand Smoke: No caffeine: Yes (coffee) Dental Care, Regularly: Yes Physical Activity Frequency: 3-4 Times per Week Physical Activity Frequency Comment: does a lot of yardwork in the summer time Seatbelt Use: always Sunscreen Use: No Assistive Devices: Glasses and Hearing Aid - Bilateral Review of Systems Review of Systems: 12 point review of systems negative exce pt for otherwise indicated. Physical Exam Constitutional: well developed and well nourished; no acute distress Eyes: + anicteric sclerae; pupils not irregula r Respiratory: Breathing comfortably on 2 L by nasal cannula Cardiovascular: well perfused Gastrointestinal (Abdomen): Inspection/Auscultation: abdomen normal to inspection; abdomen not distended Musculoskeletal: Extremities: extremities normal to inspection Skin: normal turgor; no rashes and no lesions Neurologic: moves all extremities and awake Psychiatric: Orientation: alert and oriented x 3 Genitourinary: Urinal at the bedside, scant amount of urine appears red, no clots seen. Results & Data Vital Signs (Past 12 Hours) Vital Signs Temp Pulse Pulse Resp BP BP Pulse Ox 04/03/24 12:41 18 97 04/03/24 12:35 36.5 C 69 21 140/71 92 04/03/24 09:30 70 16 94 04/03/24 09:30 70 16 146/78 H 95 04/03/24 09:28 70 04/03/24 09:04 36.5 C 72 15 102/59 L 89 L O2 Del Method O2 Flow Rate 04/03/24 12:41 Nasal Cannula 2 04/03/24 12:35 Nasal Cannula 3 04/03/24 09:30 Nasal Cannula 2 04/03/24 09:30 Nasal Cannula 2 04/03/24 09:28 04/03/24 09:04 Room Air PG Care Time/CCT Total # of Minutes Spent Total Time Spent with Patient: Total time spent is greater than 50% in coordination of care (as documented) at patient's floor/unit and/or counseling patient: Coding Level of Care Code 49297 INT INP/OBS CARE 2/55MIN Diagnoses Gross hematuria R31.0 Acute UTI N39.0 Bladder cancer C67.9 Nephrolithiasis N20.0
[2024-04-03] MEDS: MAGNESIUM SULFATE / D5W 1 GM/100 ML BAG IV SCH (14:18)
--- NOTE | 2024-04-03 15:05 | XCELERA ---
[id number]
[2024-04-03] MEDS: LIDOCAINE 2% JELLY 5 ML TUBE EXT STA (15:51)
--- NOTE | 2024-04-03 17:15 | Electrocardiogram Report ---
Test Reason : Blood Pressure : / mmHG Vent. Rate : 070 BPM Atrial Rate : 300 BPM P-R Int : 000 ms QRS Dur : 096 ms QT Int : 426 ms P-R-T Axes : 069 015 158 degrees QTc Int : 460 ms Atrial flutter Left ventricular hypertrophy with repolarization abnormality Abnormal ECG When compared with ECG of 03-APR-2020 09:44, Atrial flutter has replaced Sinus rhythm T wave inversion now evident in Anterior leads T wave inversion less evident in Lateral leads Confirmed by Roberto Duong ([id number]) on 04/03/2024 5:15:05 PM Referred By: REFERRED SELF Confirmed By:Carlos A Duong
[2024-04-03] MEDS: FUROSEMIDE INJ 20 MG/2 ML VIAL IV SCH (17:25)
[2024-04-03 18:03] LABS: Basophils # (auto) 0.05 K/uL (0.00-0.20); Basophils % (auto) 0.8 %; Eosinophils # (auto) 0.21 K/uL (0.00-0.50); Eosinophils % (auto) 3.2 %; Hematocrit (blood only) 42.4 % (42.0-52.0); Hemoglobin 13.1 g/dl (14.0-18.0); Immature Granulocytes # (auto) 0.03 K/uL (0.01-0.20); Immature Granulocytes % (auto) 0.5 %; Lymphocytes # (auto) 0.86 K/uL (1.20-3.40); Lymphocytes % (auto) 13.1 %; Mean Corpuscular Hemoglobin 27.8 pg (25.0-34.0); Mean Corpuscular Hgb Conc 30.9 g/dL (32.0-36.0); Mean Platelet Volume 9.8 fL (9.4-12.4); Monocytes # (auto) 0.54 K/uL (0.11-0.59); Monocytes % (auto) 8.2 %; Neutrophils % (auto) 74.2 %; Platelet Count 229 K/uL (130-400); RDW Coefficient of Variation 14.7 % (11.5-14.5); RDW Standard Deviation 48.1 fL (36.4-46.3); Red Blood Count 4.71 M/uL (4.70-6.10); White Blood Count 6.59 K/ul (4.8-10.8)
[2024-04-03] MEDS: ZOLPIDEM TARTRATE 5 MG TAB PO SCH (22:06)
[2024-04-03] MEDS: TAMSULOSIN HCL 0.4 MG CAP PO SCH (22:06)
[2024-04-03] MEDS: FINASTERIDE 5 MG TAB PO SCH (22:06)
[2024-04-03] MEDS: ATORVASTATIN 40 MG TAB PO SCH (22:08)
[2024-04-04] MEDS: LEVOTHYROXINE SODIUM 50 MCG TABLET PO SCH (05:38)
[2024-04-04 07:24] LABS: Basophils # (auto) 0.05 K/uL (0.00-0.20); Basophils % (auto) 0.9 %; Eosinophils # (auto) 0.32 K/uL (0.00-0.50); Eosinophils % (auto) 5.7 %; Hematocrit (blood only) 40.2 % (42.0-52.0); Hemoglobin 12.6 g/dl (14.0-18.0); Immature Granulocytes # (auto) 0.02 K/uL (0.01-0.20); Immature Granulocytes % (auto) 0.4 %; Lymphocytes # (auto) 0.65 K/uL (1.20-3.40); Lymphocytes % (auto) 11.6 %; Mean Corpuscular Hemoglobin 28.4 pg (25.0-34.0); Mean Corpuscular Hgb Conc 31.3 g/dL (32.0-36.0); Mean Corpuscular Volume 90.5 fL (80.0-100.0); Mean Platelet Volume 10.1 fL (9.4-12.4); Monocytes # (auto) 0.49 K/uL (0.11-0.59); Monocytes % (auto) 8.8 %; Neutrophils # (auto) 4.05 K/uL (1.40-6.50); Neutrophils % (auto) 72.6 %; Platelet Count 201 K/uL (130-400); RDW Coefficient of Variation 14.8 % (11.5-14.5); RDW Standard Deviation 48.9 fL (36.4-46.3); Red Blood Count 4.44 M/uL (4.70-6.10); White Blood Count 5.58 K/ul (4.8-10.8)
[2024-04-04 07:38] LABS: INR 1.2 (0.9-1.1); Prothrombin Time 12.8 Seconds (9.0-12.0)
[2024-04-04 07:44] LABS: Albumin Globulin Ratio 1.1 (0.9-2); Albumin Level 3.5 gm/dl (3.4-5.0); BUN Creatinine Ratio 24.8 (10-20); Bilirubin,Total 1.2 mg/dl (0.2-1.0); Calcium 8.9 mg/dl (8.6-10.3); Creatinine Clr Calc Pharmacy 51.8 ml/min; Est GFR (African American) 70.4 ml/min; Est GFR (Non-African American) 60.7 ml/min; Globulin 3.3 gm/dl (2.5-4.0); Potassium 3.9 mmol/L (3.5-5.1); Total Protein 6.8 gm/dl (6.0-8.3)
[2024-04-04] MEDS: ATORVASTATIN 40 MG TAB PO SCH (08:06)
[2024-04-04] MEDS: FUROSEMIDE INJ 20 MG/2 ML VIAL IV SCH (08:06)
[2024-04-04] MEDS: ESCITALOPRAM OXALATE 10 MG TAB PO SCH (08:06)
[2024-04-04] MEDS: cefTRIAXone SODIUM 2,000 MG/50 ML BAG IV SCH (08:35)
[2024-04-04] MEDS ORDERED: TAMSULOSIN HCL 0.4 MG CAP PO SCH (09:00)
[2024-04-04] MEDS ORDERED: FINASTERIDE 5 MG TAB PO SCH (09:00)
--- NOTE | 2024-04-04 09:54 | Urology Progress Note ---
Date of Service April 04, 2024 Assessment & Plan (1) Acute UTI: Plan: Agree with broad-spectrum antibiotics, narrow coverage as culture data becomes available. (2) Gross hematuria: Plan: As long as he is voiding well, no need for Rodas catheter. Will continue to monitor. If he becomes obstructed, catheter could be placed and hand irrigation performed to remove any clots. Hemoglobin overall appears stable. He will require further workup, although this can likely be done as an outpatient. (3) Bladder cancer: Plan: With history of bladder cancer, current hematuria raises concern for possible recurrence. Will plan to evaluate this further as an outpatient Plan Urology will follow along Admission and Anticipated Discharge Date Admission Date: April 03, 2024 Subjective Feeling well this morning, tolerating a diet with no nausea or vomiting Has been getting Lasix for volume overload Has been voiding spontaneously, may still be having some small clots, feels like he is emptying well. Denies any fevers or chills Hemoglobin slightly down from yesterday (12.6 from 13.1) Creatinine within normal limits04/04/2024 Urine cultures with gram-negative rods, blood cultures pending. Remains on broad-spectrum antibiotics with ceftriaxone Physical Exam Physical Exam: Resting comfortably in bed, NAD Respiratory: Breathing comfortably on 2 L by nasal cannula Genitourinary: Urinal at the bedside with cranberry colored urine, no obvious clots Results & Data Vital Signs (Past 12 Hours) Vital Signs Temp Pulse Pulse Resp BP BP Pulse Ox 04/04/24 07:46 36.7 C 68 18 139/78 92 04/04/24 07:10 75 04/04/24 03:39 36.5 C 68 16 126/74 98 04/03/24 23:25 04/03/24 23:05 36.4 C L 66 16 97/58 L 92 04/03/24 22:00 69 O2 Del Method O2 Flow Rate 04/04/24 07:46 Nasal Cannula 2 04/04/24 07:10 04/04/24 03:39 Nasal Cannula 2 04/03/24 23:25 Nasal Cannula 2 04/03/24 23:05 Nasal Cannula 2 04/03/24 22:00 PG Care Time/CCT Total # of Minutes Spent Total Time Spent with Patient: Total time spent is greater than 50% in coordination of care (as documented) at patient's floor/unit and/or counseling patient: Coding Level of Care Code 20998 SUB INP/OBS CARE 235MIN Diagnoses Acute UTI N39.0 Gross hematuria R31.0 Bladder cancer C67.9
--- NOTE | 2024-04-04 12:37 | Hospitalist Progress Note ---
Date of Service April 04, 2024 Assessment & Plan (1) Acute diastolic CHF (congestive heart failure): (2) Acute respiratory failure with hypoxia: Plan: Supplemental oxygen per nasal cannula to maintain saturation greater than 90%. Treat underlying CHF. Serial chest x-ray. Wean off as tolerated (3) Acute UTI: Plan: Await final urine culture results and sensitivities. Continue Rocephin for now, day 2. Gram-negative bacilli noted in urine culture so far (4) Gross hematuria: Plan: Appreciate urology consultation and recommendations. He has a history of bladder cancer and will undergo further evaluation as an outpatient. No indication for continuous bladder irrigation at this time (5) Elevated troponin: Plan: Mild on admission. No chest pain. No evidence of acute coronary syndrome (6) Hypothyroidism: Plan: Continue levothyroxine (7) HTN (hypertension): Plan: Stable. Will follow Plan Hopeful discharge to home within the next 48 to 72 hours Admission and Anticipated Discharge Date Admission Date: April 03, 2024 Subjective Alert and oriented. No acute distress. He appears to have multiple problems including urinary tract infection, gross hematuria, acute diastolic CHF, acute hypoxic respiratory failure. He is now on parenteral Lasix. Recent cardiac echo reveals normal ejection fraction. Will repeat portable chest x-ray again tomorrow, April 05. Urine culture is growing gram-negative bacilli. He is currently on Rocephin. Bilateral leg vein Dopplers negative for DVT. Urology consultation noted. They will pursue outpatient cystoscopy. He continues to have gross hematuria but continuous bladder irrigation has not been ordered. He remains on supplemental oxygen. Review of Systems 2 Review of Systems: Constitutional-no fever or chills ENT-no blurred vision, no double vision, no epistaxis, no sore throat Respiratory-no cough, no wheezing.he does have dyspnea on exertion Cardiac-no palpitations, no chest pain, no syncope GI-no nausea, vomiting, diarrhea, melena, hematochezia -no urinary retention, no urinary incontinence, no dysuria.he does have gross hematuria Musculoskeletal-no joint pain, no muscle tenderness Skin-no bruising, no rashes, no pruritus Neuro-no isolated weakness, no paresthesia Psych-no depression, no anxiety Physical Exam 2 Physical Exam: General-alert and oriented x3, no fever, no chills HEENT-head atraumatic and normocephalic, pupils equal and reactive to light, extraocular muscles intact Neck-no lymphadenopathy or thyromegaly, trachea midline Chest-bibasilar inspiratory rales. No rhonchi. No wheezing Cardiac-regular rate and rhythm, normal S1 and S2 Abdomen-normal bowel sounds, no hepatosplenomegaly GUgross hematuria Extremities-no cyanosis, clubbing, or edema Neuro-cranial nerves II through XII intact, motor and sensory function within normal limits, strength symmetrical, no focal deficits Psych-normal affect, normal mood Results & Data Results & Data Vital Signs (Past 12 Hours) Vital Signs Temp Pulse Pulse Resp BP BP Pulse Ox 04/04/24 11:48 37.0 C 70 18 125/69 95 04/04/24 07:46 36.7 C 68 18 139/78 92 04/04/24 07:10 75 04/04/24 03:39 36.5 C 68 16 126/74 98 O2 Del Method O2 Flow Rate 04/04/24 11:48 Nasal Cannula 2 04/04/24 07:46 Nasal Cannula 2 04/04/24 07:10 04/04/24 03:39 Nasal Cannula 2 Laboratory Results 04/04/24 06:27 04/04/24 06:27 PG Care Time/CCT Total # of Minutes Spent Total Time Spent with Patient: Total time spent is greater than 50% in coordination of care (as documented) at patient's floor/unit and/or counseling patient: Coding Level of Care Code 79623 SUB INP/OBS CARE 3/50MIN Diagnoses Acute diastolic CHF (congestive heart failure) I50.31 Acute respiratory failure with hypoxia J96.01 Acute UTI N39.0 Gross hematuria R31.0 Elevated troponin R74.8 Hypothyroidism E03.9 HTN (hypertension) I10
[2024-04-05 07:32] LABS: Basophils # (auto) 0.04 K/uL (0.00-0.20); Basophils % (auto) 0.7 %; Eosinophils # (auto) 0.29 K/uL (0.00-0.50); Eosinophils % (auto) 5.4 %; Hematocrit (blood only) 40.2 % (42.0-52.0); Hemoglobin 12.5 g/dl (14.0-18.0); Immature Granulocytes # (auto) 0.03 K/uL (0.01-0.20); Immature Granulocytes % (auto) 0.6 %; Lymphocytes # (auto) 0.69 K/uL (1.20-3.40); Lymphocytes % (auto) 12.8 %; Mean Corpuscular Hemoglobin 28.1 pg (25.0-34.0); Mean Corpuscular Hgb Conc 31.1 g/dL (32.0-36.0); Mean Corpuscular Volume 90.3 fL (80.0-100.0); Monocytes % (auto) 11.1 %; Neutrophils # (auto) 3.76 K/uL (1.40-6.50); Neutrophils % (auto) 69.4 %; Platelet Count 203 K/uL (130-400); RDW Coefficient of Variation 14.7 % (11.5-14.5); RDW Standard Deviation 48.6 fL (36.4-46.3); Red Blood Count 4.45 M/uL (4.70-6.10); White Blood Count 5.41 K/ul (4.8-10.8)
--- NOTE | 2024-04-05 07:55 | XRay Report ---
XR chest 1V portable HISTORY: 88 years-old Male CHF acute shortness of breath with congestive heart failure COMPARISON: 04/03/2024 TECHNIQUE: AP view of the chest FINDINGS: Right axilla is enlarged. Mild right hemidiaphragmatic elevation. Pulmonary vascular congestion. Trac e right pleural effusion. No pneumothorax, or airspace consolidation. Left-sided rotator cuff calcifi c adenosis. Bones are grossly intact. IMPRESSION: Cardiomegaly with unchanged pulmonary vascular congestion and trace right pleural effusio n. ACT 112: Negative or not required by law. The above report was generated using voice recognition software. It may contain grammatical, syntax o r spelling errors. Electronically signed by: Tom Rivas M.D. 04/05/2024 7:53 AM
[2024-04-05 08:08] LABS: BUN Creatinine Ratio 27.2 (10-20); Calcium 8.9 mg/dl (8.6-10.3); Est GFR (African American) 66.6 ml/min; Est GFR (Non-African American) 57.5 ml/min
--- NOTE | 2024-04-05 08:17 | Urology Progress Note ---
Date of Service April 05, 2024 Assessment & Plan (1) Acute UTI: Plan: Urine culture with Citrobacter, blood cultures negative so far. Once blood cultures are final, would be reasonable to de-escalate to oral antibiotics. (2) Gross hematuria: Plan: Urine seems to be clearing with treatment of his infection. No clots at this point. Would recommend monitoring without active intervention at this time. If he develops retention, could place a catheter and hand irrigate to remove any clots. Based on the color of the urine this morning, I think this is unlikely to occur. Urology will sign off for now. We will coordinate outpatient follow- up to complete hematuria workup. (3) Bladder cancer: Plan: With history of bladder cancer, current hematuria raises concern for possible recurrence. Will plan to evaluate this further as an outpatient Plan Urology will sign off for now, please call with any questions or concerns. Admission and Anticipated Discharge Date Admission Date: April 03, 2024 Subjective Feeling well this morning, no fevers or chills Has been voiding without any issue, urine seems to be clearing Urine culture with Citrobacter koseri, blood cultures negative so far. Still on ceftriaxone. Physical Exam Physical Exam: Well-appearing, resting in bed, NAD Respiratory: Breathing comfortably, 2 L by nasal cannula Genitourinary: [place]-tinged urine in the urinal at the bedside, no clots appreciated Results & Data Vital Signs (Past 12 Hours) Vital Signs Temp Pulse Pulse Resp BP Pulse Ox O2 Del Method 04/05/24 08:05 Nasal Cannula 04/05/24 07:10 68 04/05/24 02:54 36.3 C L 66 16 122/64 93 Nasal Cannula 04/04/24 22:56 36.6 C 68 18 138/79 91 Room Air 04/04/24 22:41 Nasal Cannula 04/04/24 22:05 70 O2 Flow Rate 04/05/24 08:05 2 04/05/24 07:10 04/05/24 02:54 2 04/04/24 22:56 04/04/24 22:41 2 04/04/24 22:05 PG Care Time/CCT Total # of Minutes Spent Total Time Spent with Patient: Total time spent is greater than 50% in coordination of care (as documented) at patient's floor/unit and/or counseling patient: Coding Level of Care Code 47781 SUB INP/OBS CARE 1/25MIN Diagnoses Acute UTI N39.0 Gross hematuria R31.0 Bladder cancer C67.9
--- NOTE | 2024-04-05 14:36 | Hospitalist Progress Note ---
Date of Service April 05, 2024 Assessment & Plan (1) Acute diastolic CHF (congestive heart failure): Plan: Continue Lasix diuresis. Monitor intake and output. Serial chest x-ray (2) Acute respiratory failure with hypoxia: Plan: Supplemental oxygen per nasal cannula to maintain saturation greater than 90%. Treat underlying CHF. Serial chest x-ray. Wean off as tolerated (3) Acute UTI: Plan: Pansensitive Citrobacter isolated. He remains on Rocephin, day 3 (4) Gross hematuria: Plan: Appreciate urology consultation and recommendations. He has a history of bladder cancer and will undergo further evaluation as an outpatient. No indication for continuous bladder irrigation at this time. Now resolved (5) Elevated troponin: Plan: Mild on admission. No chest pain. No evidence of acute coronary syndrome (6) Hypothyroidism: Plan: Stable. Continue current levothyroxine (7) HTN (hypertension): Plan: Stable. Will follow Plan Hopeful discharge to home within the next 24 to 48 hours once CHF has resolved and oxygen has been weaned off Admission and Anticipated Discharge Date Admission Date: April 03, 2024 Subjective Alert and oriented. No distress. Hematuria has now resolved. Brisk diuresis noted with parenteral Lasix which continues. Chest x-ray done today, April 05, continues to show evidence of CHF with no significant change. Urine culture is growing Citrobacter which is pansensitive. Today is day 3 of parenteral Rocephin. Review of Systems 2 Review of Systems: Constitutional-no fever or chills ENT-no blurred vision, no double vision, no epistaxis, no sore throat Respiratory-no cough, no wheezing.he does have dyspnea on exertion Cardiac-no palpitations, no chest pain, no syncope GI-no nausea, vomiting, diarrhea, melena, hematochezia -no urinary retention, no urinary incontinence, no dysuria.he does have gross hematuria Musculoskeletal-no joint pain, no muscle tenderness Skin-no bruising, no rashes, no pruritus Neuro-no isolated weakness, no paresthesia Psych-no depression, no anxiety Physical Exam 2 Physical Exam: General-alert and oriented x3, no fever, no chills HEENT-head atraumatic and normocephalic, pupils equal and reactive to light, extraocular muscles intact Neck-no lymphadenopathy or thyromegaly, trachea midline Chest-bibasilar inspiratory rales. No rhonchi. No wheezing Cardiac-regular rate and rhythm, normal S1 and S2 Abdomen-normal bowel sounds, no hepatosplenomegaly GUgross hematuria Extremities-no cyanosis, clubbing, or edema Neuro-cranial nerves II through XII intact, motor and sensory function within normal limits, strength symmetrical, no focal deficits Psych-normal affect, normal mood Results & Data Results & Data Vital Signs (Past 12 Hours) Vital Signs Temp Pulse Pulse Pulse Resp BP Pulse Ox 04/05/24 12:00 36.5 C 67 18 106/60 95 04/05/24 09:00 36.8 C 68 16 108/71 94 04/05/24 08:05 04/05/24 07:10 68 04/05/24 02:54 36.3 C L 66 16 122/64 93 O2 Del Method O2 Flow Rate 04/05/24 12:00 Nasal Cannula 2 04/05/24 09:00 Nasal Cannula 2 04/05/24 08:05 Nasal Cannula 2 04/05/24 07:10 04/05/24 02:54 Nasal Cannula 2 Laboratory Results 04/05/24 06:46 04/05/24 06:46 PG Care Time/CCT Total # of Minutes Spent Total Time Spent with Patient: Total time spent is greater than 50% in coordination of care (as documented) at patient's floor/unit and/or counseling patient: Coding Level of Care Code 92054 SUB INP/OBS CARE 3/50MIN Diagnoses Acute diastolic CHF (congestive heart failure) I50.31 Acute respiratory failure with hypoxia J96.01 Acute UTI N39.0 Gross hematuria R31.0 Elevated troponin R74.8 Hypothyroidism E03.9 HTN (hypertension) I10
[2024-04-06 06:44] LABS: Basophils # (auto) 0.04 K/uL (0.00-0.20); Basophils % (auto) 0.8 %; Eosinophils # (auto) 0.39 K/uL (0.00-0.50); Eosinophils % (auto) 7.5 %; Hematocrit (blood only) 39.6 % (42.0-52.0); Hemoglobin 12.5 g/dl (14.0-18.0); Immature Granulocytes # (auto) 0.02 K/uL (0.01-0.20); Immature Granulocytes % (auto) 0.4 %; Lymphocytes # (auto) 0.81 K/uL (1.20-3.40); Lymphocytes % (auto) 15.5 %; Mean Corpuscular Hemoglobin 28.3 pg (25.0-34.0); Mean Corpuscular Hgb Conc 31.6 g/dL (32.0-36.0); Mean Corpuscular Volume 89.8 fL (80.0-100.0); Mean Platelet Volume 9.9 fL (9.4-12.4); Monocytes # (auto) 0.69 K/uL (0.11-0.59); Monocytes % (auto) 13.2 %; Neutrophils # (auto) 3.26 K/uL (1.40-6.50); Neutrophils % (auto) 62.6 %; Platelet Count 210 K/uL (130-400); RDW Coefficient of Variation 14.7 % (11.5-14.5); RDW Standard Deviation 47.4 fL (36.4-46.3); Red Blood Count 4.41 M/uL (4.70-6.10); White Blood Count 5.21 K/ul (4.8-10.8)
[2024-04-06 07:15] LABS: BUN Creatinine Ratio 25.6 (10-20); Creatinine Clr Calc Pharmacy 45.8 ml/min; Est GFR (Non-African American) 53.5 ml/min; Potassium 3.7 mmol/L (3.5-5.1)
--- NOTE | 2024-04-06 18:16 | Hospitalist Progress Note ---
Date of Service April 06, 2024 Assessment & Plan (1) Acute diastolic CHF (congestive heart failure): Plan: Presented with LE edema, pleural effusions, hypoxia, elevated BNP ECHO here with EF normal, mild AI, mod MR, elevated RVSP 40-50 mmHg Much improved with IV lasix--> weight down 8 kg and net I/Os -7.5L Continue IV lasix Follow I/Os, daily weights, low sodium diet Follow BMP, magnesium levels Refer to CHF clinic (2) Acute respiratory failure with hypoxia: Plan: 2/2 CHF, improving, now on RA at rest, needs O2 with ambulation Check 2 step wlk test prior to discharge Continue diuresis (3) Acute UTI: Plan: P/w gross hematuria Pansensitive Citrobacter isolated in Ur cx Continue Rocephin and switch to po abx to finish out 7 day course after discharge F/u with Urology for hematuria workup after discharge especially given h/o bladder CA (4) Gross hematuria: Plan: as above, probably from UTI but could be from prostate enlargement or h/o bladder CA Hgb only slight drop to 12.5 from 13.6 Complete workup as outpt with Urology Follow CBC in AM (5) Atrial flutter: Plan: New diagnosis earlier this spring. Remains in A flutter here, not on AV genesis blocking agent but is rate controlled Not on anticoagulation yet as did not take Eliquis prescribed while in [place] at time of diagnosis Now hold AC for hematuria f/u with [facility] after discharge at pt's request (6) Elevated troponin: Plan: Mild on admission, from demand ischemia from CHF. No chest pain. 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 Has some small amounts of blood in urine but no further clots. Feeling less SOB.Feeling stronger.Is eating and drinking. Tele with Atrial flutter, rates 60-70s Physical Exam Constitutional: WD/WN, vitals as above Respiratory: normal respiratory effort; no cough Auscultation: + diminished lung sounds (right base); no crackles, no rhonchi and no wheezes Cardiovascular: Rate/Rhythm: regular rate and + irregularly irregular Heart Sounds: no murmur Extremities: no edema Gastrointestinal (Abdomen): normal bowel sounds, soft, nontender, no hepatosplenomegaly Musculoskeletal: Extremities: + extremities abnormal to inspection (right pinky finger in plaint at DIP joint) Psychiatric: A+Ox3, euthymic affect Results & Data Results & Data Vital Signs (Past 12 Hours) Vital Signs Temp Pulse Pulse Resp BP Pulse Ox O2 Del Method 04/06/24 15:08 36.7 C 78 18 106/69 90 Room Air 04/06/24 14:04 68 04/06/24 10:47 36.8 C 70 16 114/68 91 Room Air 04/06/24 07:48 Room Air 04/06/24 07:31 36.5 C 65 16 118/58 L 90 Room Air 04/06/24 07:00 70 Laboratory Results CBC, BMP, Ur cx reviewed PG Care Time/CCT Total # of Minutes Spent Total Time Spent with Patient: Total time spent is greater than 50% in coordination of care (as documented) at patient's floor/unit and/or counseling patient: Coding Level of Care Code 89381 SUB INP/OBS CARE 3/50MIN Diagnoses Acute diastolic CHF (congestive heart failure) I50.31 Acute respiratory failure with hypoxia J96.01 Acute UTI N39.0 Gross hematuria R31.0 Atrial flutter I48.92 Elevated troponin R74.[address] of the abdomen R93.5 Mallet deformity of right little finger M20.011
[2024-04-07 07:37] LABS: Basophils # (auto) 0.07 K/uL (0.00-0.20); Basophils % (auto) 1.1 %; Eosinophils % (auto) 4.5 %; Hematocrit (blood only) 41.4 % (42.0-52.0); Immature Granulocytes # (auto) 0.02 K/uL (0.01-0.20); Immature Granulocytes % (auto) 0.3 %; Lymphocytes # (auto) 0.94 K/uL (1.20-3.40); Lymphocytes % (auto) 14.2 %; Mean Corpuscular Hgb Conc 31.4 g/dL (32.0-36.0); Mean Corpuscular Volume 89.2 fL (80.0-100.0); Monocytes # (auto) 0.79 K/uL (0.11-0.59); Monocytes % (auto) 11.9 %; Platelet Count 229 K/uL (130-400); RDW Coefficient of Variation 14.9 % (11.5-14.5); RDW Standard Deviation 47.9 fL (36.4-46.3); Red Blood Count 4.64 M/uL (4.70-6.10); White Blood Count 6.62 K/ul (4.8-10.8)
[2024-04-07 07:50] LABS: BUN Creatinine Ratio 33.3 (10-20); Calcium 9.1 mg/dl (8.6-10.3); Creatinine Clr Calc Pharmacy 50.9 ml/min; Est GFR (African American) 71.1 ml/min; Est GFR (Non-African American) 61.4 ml/min; Magnesium 1.6 mg/dl (1.7-2.4); Potassium 3.6 mmol/L (3.5-5.1)
[2024-04-07] MEDS: POTASSIUM CHLORIDE CRTAB 20 MEQ TABCR PO STA (08:58)
[2024-04-07] MEDS: MAGNESIUM SULFATE / D5W 1 GM/100 ML BAG IV SCH (08:59)
--- NOTE | 2024-04-07 17:21 | Hospitalist Progress Note ---
Date of Service April 07, 2024 Assessment & Plan (1) Acute diastolic CHF (congestive heart failure): Plan: Presented with LE edema, pleural effusions, hypoxia, elevated BNP ECHO here with EF normal, mild AI, mod MR, elevated RVSP 40-50 mmHg Much improved with IV lasix--> weight down 9.5 kg and net I/Os -8.3L POx still 90% on RA at rest, still crackles on exam Continue IV lasix bid Follow I/Os, daily weights, low sodium diet Follow BMP, magnesium levels-replace K and Mag today po and IV Refer to CHF clinic (2) Acute respiratory failure with hypoxia: Plan: 2/2 CHF, improving, now on RA at rest, needs O2 with ambulation as of last PT eval Check 2 step walk test prior to discharge Continue diuresis (3) Acute UTI: Plan: P/w gross hematuria which is now resolved Pansensitive Citrobacter isolated in Ur cx Continue Rocephin and switch to po abx to finish out 7 day course after discharge F/u with Urology for hematuria workup after discharge especially given h/o bladder CA (4) Gross hematuria: Plan: as above, probably from UTI but could be from prostate enlargement or h/o bladder CA Hgb only slight drop to 12.5 from 13.6 and now back up to 13.0 Hematuria now resolved Complete workup as outpt with Urology Follow CBC in AM Starting Eliquis for Aflutter--> watch for return of hematuria (5) Atrial flutter: Plan: New diagnosis earlier this spring. Remains in A flutter here, not on AV genesis blocking agent but is rate controlled Not on anticoagulation yet as did not take Eliquis prescribed while in [place] at time of diagnosis Now that hematuria resolved, will now start Eliquis 5mg po bid-discussed risk and benefits with pt and he is agreeable f/u with [facility] after discharge at pt's request (6) Elevated troponin: Plan: Mild on admission, from demand ischemia from CHF. No chest pain. 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 Urine has now cleared of all blood. Is moving bowels. Discussed risks and benefits of Eliquis and he is agreeable to starting it for his atrial flutter. Tele with atrial flutter,afib, rates 60-70s Physical Exam Constitutional: WD/WN, vitals as above Respiratory: normal respiratory effort; no cough Auscultation: + diminished lung sounds (right base) and + crackles (right base); no rhonchi and no wheezes Cardiovascular: Rate/Rhythm: regular rate and + irregularly irregular Heart Sounds: no murmur Extremities: no edema Gastrointestinal (Abdomen): normal bowel sounds, soft, nontender, no hepatosplenomegaly Musculoskeletal: Extremities: + extremities abnormal to inspection (right pinky finger in plaint at DIP joint) Psychiatric: A+Ox3, euthymic affect Results & Data Results & Data Vital Signs (Past 12 Hours) Vital Signs Temp Pulse Pulse Resp BP Pulse Ox O2 Del Method 04/07/24 14:52 37.2 C 78 18 110/69 90 Room Air 04/07/24 13:49 84 04/07/24 11:21 37.3 C 76 18 107/57 L 90 Room Air 04/07/24 09:07 Room Air 04/07/24 07:16 36.9 C 71 16 113/70 92 Room Air 04/07/24 07:00 89 Laboratory Results CBC, BMP, magnesium reviewed PG Care Time/CCT Total # of Minutes Spent Total Time Spent with Patient: Total time spent is greater than 50% in coordination of care (as documented) at patient's floor/unit and/or counseling patient: Coding Level of Care Code 67483 SUB INP/OBS CARE 3/50MIN Diagnoses Acute diastolic CHF (congestive heart failure) I50.31 Acute respiratory failure with hypoxia J96.01 Acute UTI N39.0 Gross hematuria R31.0 Atrial flutter I48.92 Elevated troponin R74.[address] of the abdomen R93.5 Mallet deformity of right little finger M20.011
[2024-04-07] MEDS: APIXABAN 5 MG TABLET PO SCH (19:57)
[2024-04-08 07:20] LABS: Basophils # (auto) 0.06 K/uL (0.00-0.20); Eosinophils # (auto) 0.36 K/uL (0.00-0.50); Eosinophils % (auto) 6.1 %; Hematocrit (blood only) 44.5 % (42.0-52.0); Hemoglobin 13.9 g/dl (14.0-18.0); Immature Granulocytes # (auto) 0.03 K/uL (0.01-0.20); Immature Granulocytes % (auto) 0.5 %; Lymphocytes # (auto) 0.95 K/uL (1.20-3.40); Mean Corpuscular Hemoglobin 28.1 pg (25.0-34.0); Mean Corpuscular Hgb Conc 31.2 g/dL (32.0-36.0); Mean Corpuscular Volume 89.9 fL (80.0-100.0); Monocytes # (auto) 0.76 K/uL (0.11-0.59); Monocytes % (auto) 12.8 %; Neutrophils # (auto) 3.76 K/uL (1.40-6.50); Neutrophils % (auto) 63.6 %; Platelet Count 229 K/uL (130-400); RDW Coefficient of Variation 14.7 % (11.5-14.5); RDW Standard Deviation 48.5 fL (36.4-46.3); Red Blood Count 4.95 M/uL (4.70-6.10); White Blood Count 5.92 K/ul (4.8-10.8)
[2024-04-08 07:56] LABS: BUN Creatinine Ratio 34.3 (10-20); Calcium 9.6 mg/dl (8.6-10.3); Creatinine Clr Calc Pharmacy 52.3 ml/min; Est GFR (African American) 73.6 ml/min; Est GFR (Non-African American) 63.5 ml/min; Magnesium 1.9 mg/dl (1.7-2.4); Potassium 4.4 mmol/L (3.5-5.1)
--- NOTE | 2024-04-08 12:41 | Discharge Summary ---
Discharge Summary Date of Service April 08, 2024 Principal Dx & Hospital Course #1 = Principal Diagnosis (1) Acute diastolic CHF (congestive heart failure): Presented with LE edema, pleural effusions, hypoxia, elevated BNP ECHO here with EF normal, mild AI, mod MR, elevated RVSP 40-50 mmHg Much improved with IV lasix--> weight down 9.6 kg and net I/Os -8.8L Now on room air at rest but needs 2LNC with exertion-was provided with O2 on discharge Continue lasix 40mg po bid on discharge (home dose 20mg bid) Follow daily weights, low sodium diet, fluid restrict to 1800mL/day after discharge Follow BMP, magnesium levels after discharge Refer to CHF clinic (2) Acute respiratory failure with hypoxia: 2/2 CHF, improving, now on RA at rest, needs 2LNC O2 with ambulation Continue diuresis (3) Acute UTI: P/w gross hematuria which is now resolved Pansensitive Citrobacter isolated in Ur cx Received 5 doses of IV Rocephin and switch to po cefdinir to finish out 7 day course after discharge F/u with Urology for hematuria workup after discharge especially given h/o bladder CA (4) Gross hematuria: as above, probably from UTI but could be from prostate enlargement or h/o bladd er CA Hgb only slight drop to 12.5 from 13.6 and now back up to 13.9 Hematuria now resolved and urine remained clear even after starting on Eliquis Complete workup as outpt with Urology Follow CBC as outpt if hematuria recurs (5) Atrial flutter: New diagnosis earlier this Spring. Remains in A flutter here, not on AV genesis blocking agent but is rate controlled Was not on anticoagulation yet as did not take Eliquis prescribed while in [place] at time of diagnosis Now that hematuria resolved, started Eliquis 5mg po bid-discussed risk and benefits with pt and he is agreeable f/u with [facility] after discharge at pt's request (change from [facility]) (6) Elevated troponin: Mild on admission, from demand ischemia from CHF. No chest pain. 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: Noted, continue splint and f/u with Ortho Plan Depression/Anx-continue Lexapro, Ambien for sleep BPH-continue finasteride, Flomax HL-continue statin DVT proph-TEDs, Eliquis Dispo- dc to home today Notes For Next Care Provider Check TSH in 2-3 weeks Follow BMP, Mag with CHF clinic or PCP in 1-2 weeks Needs GI eval for abnormal appearing sigmoid colon on CT abd/pel Medication Changes From Visit Increased lasix to 40mg po bid Added Eliquis 5mg po bid Added cefdinir 300mg po bid x 2 more days Admission HPI Per Admitting Provider Dm is an 88-year-old male with a past medical history significant for 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 The patient was reportedly diagnosed with new onset atrial flutter while hospitalized in [place] and was prescribed Eliquis, however, he reportedly did not start this. On arrival to the ED, he was noted to be mildly hypotensive at 102/59, hypoxic at 89% on room air, but otherwise stable. Labs were significant for a stable hemoglobin at 13.1, VBG within normal limits, initial high sensitive troponin of 55, BNP of 603 (improved compared to 864 as of 03/31/2024), and UA with cloudy appearance, 3+ protein, 3+ blood, nitrate positive, urobilinogen positive, trace leukocyte esterase, greater than 20 RBC, 610 WBC, and 2+ bacteria. CT of the abdomen and pelvis without contrast was read as "1. Marked prostatomegaly with evidence of chronic bladder outlet obstruction. 2. Layering hyperdense debris within the bladder lumen likely represents blood products. This is of indeterminate etiology. Follow-up with urology is recommended. 3. Right-sided nephrolithiasis. No ureteral stone is seen. 4. Advanced colonic diverticulosis. There is wall thickening with mild inflammation around the sigmoid colon which could represent acute versus subacute/chronic diverticulitis. Clinical correlation will be required. If not recently performed, a follow-up colonoscopy is recommended for further evaluation of the underlying colonic mucosa. 6. No intraperitoneal free air is seen and there is no fluid collection to suggest abscess. 7. Cardiomegaly. 8. Cholelithiasis. 9. Additional findings as above.". Chest x-ray was read as cardiomegaly with mild pulmonary vascular congestion. EKG showed atrial flutter with T wave inversions in the anterior leads. Prior to admission the patient was given a dose of ceftriaxone and ordered 40 mg IV lasix. Patient was sitting in bed in no acute distress at the time exam, currently stable on 2 L nasal cannula. Confirms the above history, states that he started developing gross hematuria approximately 48 hours ago. Called his PCP yesterday evening who directed him to come to the ER last night but he wanted to wait until this morning. Confirms that he never started the Eliquis that was initially prescribed approximately 6 weeks ago in [place] for new onset atrial flutter with COVID-19. He explains that his providers and when [place] did not adequately explain the medication and he was hesitant to start it [place]. Since having COVID, he has been having increased fatigue, shortness of breath/dyspnea exertion. Does not comply with a sodium or fluid restricted diet. Has not been taking 20 mg p.o. Lasix daily, was instructed to increase to 40 mg p.o. daily by his PCP on 03/31/2024, he did not have his a.m. dose prior to arrival. Denies recent fever, chills, chest pain, productive cough, pleuritic chest pain, abdominal pain, nausea/vomiting, decreased appetite, weight loss, abdominal pain, diarrhea, melena, and recent trauma. We discussed CODE STATUS, he wishes to be a DNR/DNI and for his to make medical decisions for him if he cannot make himself. Please refer to Dr. Henderson's attestation for any changes to the treatment plan. Discharge Exam Constitutional WD/WN, vitals as above Respiratory normal respiratory effort; no cough Auscultation: + diminished lung sounds (right base) and + crackles (right base); no rhonchi and no wheezes Cardiovascular Rate/Rhythm: regular rate and + irregularly irregular Heart Sounds: no murmur Extremities: no edema Gastrointestinal (Abdomen) normal bowel sounds, soft, nontender, no hepatosplenomegaly Musculoskeletal Extremities: + extremities abnormal to inspection (right pinky finger in splint at DIP joint) Psychiatric A+Ox3, euthymic affect Updated Medication List Medication Instructions Recorded Confirmed Type epinephrine 0.3 mg/0.3 mL 0.3 mg (0.3 mL) IM Q10M PRN 09/27/20 04/03/24 Rx injection, auto-injector (EpiPen anaphylaxis #2 ea [id number]) Vitamin D3 1 tab PO QAM 04/10/21 04/03/24 History calcium carbonate 600 mg-vitamin 1 tab PO QAM 04/10/21 04/03/24 History D3 5 mcg (200 unit) tablet coenzyme Q10 100 mg capsule 100 mg PO QAM 04/10/21 04/03/24 History (CoQ-10) omega-3 240 yo-ior-exk-cod liver 1 cap PO QAM 04/10/21 04/03/24 History oil 1,000 mg-vit A-vit D3 capsule (cod liver oil) omega-3 fatty acids 1,000 mg PO DAILY 04/10/21 04/03/24 History zinc 50 mg tablet 50 mg PO QAM 04/10/21 04/03/24 History levothyroxine 50 mcg tablet See Rx Instructions .Route 12/25/22 04/03/24 Rx .COMPLEX #90 tabs escitalopram oxalate 10 mg tablet See Rx Instructions .Route 03/14/23 04/03/24 Rx .COMPLEX #90 tabs desoximetasone 0.25 % topical cream 1 applic topical BID PRN rash #15 07/26/23 04/03/24 Rx grams zolpidem 6.25 mg tablet,extended 6.25 mg PO HS SLEEP #90 tabs 01/14/24 04/03/24 Rx release,multiphase finasteride 5 mg tablet See Rx Instructions .Route 03/06/24 04/03/24 Rx .COMPLEX #90 tabs tamsulosin 0.4 mg capsule 0.4 mg PO DAILY #90 caps 03/06/24 04/03/24 Rx betamethasone dipropionate 0.05 % 1 applic topical DAILY #60 mL 03/26/24 04/03/24 Rx lotion furosemide 20 mg tablet 20 mg PO BID 1 week #14 tabs 03/31/24 04/03/24 Rx atorvastatin 80 mg tablet 80 mg PO HS 04/03/24 04/03/24 History apixaban 5 mg tablet (Eliquis) 5 mg PO BID #60 tabs 04/08/24 Rx cefdinir 300 mg capsule 300 mg PO BID #4 caps 04/08/24 Rx furosemide 40 mg tablet (Lasix) 40 mg PO BID #60 tabs 04/08/24 Rx Hospital Stay Data Consultations 04/03/24 11:26 ED Decision to Admit Stat 04/03/24 11:46 Consult Urology Routine 04/06/24 23:29 [facility] CHF [facility] Referral Routine Diagnostic Imagining Performed 04/03/24 10:09 CT abd pelvis wo con Stat 04/03/24 11:59 US venous doppler LE BI Urgent ECHO Pending Results Patient Have Any Pending Studies at Discharge: No Discharge Instructions Given to Patient (Per Discharging Provider) You were admitted with bloody urine and a urinary tract infection which was treated with antibiotics. Please finish out 2 more days of the oral antibiotic called cefdinir. You will need to follow up with the Urologist in their office for further workup. You were also overloaded with fluid from congestive heart failure which was treated with diuretics. Your weight when you left the hospital was 184 lbs. You should continue taking furosemide 40mg twice a day and keep track of your daily weights. You should limit fluid and sodium in your diet as well. You will need to wear 2L of supplemental oxygen when you are exerting yourself as we discussed. For your atrial flutter (irregular heart rhythm), you were started on Eliquis as a blood thinner to reduce your risk for stroke. If you have any recurrent issues with bleeding, please let your doctor know as soon as possible or come to the hospital to be evaluated. If you fall and hit your head, you should also come to the hospital. Incidentally found on your CT scan of the abdomen/pelvis was thickening of your sigmoid colon. Please schedule an appointment with a GI doctor to see about further evaluation of this area. Call your Primary Care doctor if any of the following symptoms or problems start or get worse: * Shortness of breath or difficulty breathing * Wake up at night short of breath * Chest pain * Cough * Swelling of your hands, feet, or legs * More fatigued or tired with your normal activity * Palpitations - sudden fast heart beats WEIGHT * Weigh yourself every morning after using the bathroom. * Use the same scale. * Wear the same amount of clothing. * Write your weight down on a chart. * Call your Primary Care doctor if you gain more than 2-3 pounds in 1-2 days. MEDICATIONS * Use this discharge instruction sheet for medication instructions. * Take your medications at the time your doctor ordered. * Do not skip a dose of your medicines. * If you miss a dose of medicine, take it as soon as possible, but DO NOT DOUBLE A DOSE. * Read your medicine information when you get home. * Know all of the side effects of your medicine. If in doubt, ask your pharmacist * Call your Primary Care doctor's office if you have any side effects. * Be sure all of your doctors know what medicine and herbs you take (including cold, flu, and herbal medicine). Take the following with you to your follow-up doctor appointments: * Weight Chart * Medication List * List of questions Do not drink excessive alcohol, beer or wine. Total Time Total Time Spent Total Time Spent (In Minutes): 40 min Total Time Includes: Examination of the Patient, Discharge Planning, Medication Reconciliation and Communication With Other Providers Coding Level of Care Code 69575 INP/OBS DISCH >30 MIN Diagnoses Acute diastolic CHF (congestive heart failure) I50.31 Acute respiratory failure with hypoxia J96.01 Acute UTI N39.0 Gross hematuria R31.0 Atrial flutter I48.92 Elevated troponin R74.[address] of the abdomen R93.5 Mallet deformity of right little finger M20.011
== END 2024-04-08 14:53 | disposition home or self-care (01) | DRG 291 ==
LOC: ED 09:02 → SUATTDRO 11:23 → EDINP 11:23 → 2N 20:54

== ENCOUNTER 2025-02-19 15:23 | Inpatient (IN) ==
[2025-02-19] MEDS: SODIUM CHLORIDE 0.9% 500 ML IV ONE (16:22)
[2025-02-19] MEDS: ACETAMINOPHEN 1,000 MG/100 ML VIAL IV STA (16:22)
--- NOTE | 2025-02-19 16:33 | XRay Report ---
Technique: A frontal view of the chest was obtained Comparison is made to the prior examination dated 04/05/2024 Findings: There is suspected mild pulmonary edema. There is unchanged cardiomegaly. No pleural effusion or pneumothorax is seen. No fracture is noted. No foreign body is seen Impression: Cardiomegaly and suspected mild pulmonary edema ACT 112: Positive. There are findings on this exam that require communication between the performing entity and the patient following Patient Test Result Information Act ([place] ACT 112) guidelines. Electronically signed by Imer Nunez 02-19-2025 4:32 PM
[2025-02-19 16:34] LABS: Basophils # (auto) 0.03 K/uL (0.00-0.20); Basophils % (auto) 0.3 %; Eosinophils # (auto) 0.01 K/uL (0.00-0.50); Eosinophils % (auto) 0.1 %; Hemoglobin 11.4 g/dl (14.0-18.0); Immature Granulocytes # (auto) 0.05 K/uL (0.01-0.20); Immature Granulocytes % (auto) 0.5 %; Lymphocytes # (auto) 0.74 K/uL (1.20-3.40); Lymphocytes % (auto) 7.3 %; Mean Corpuscular Hemoglobin 22.6 pg (25.0-34.0); Mean Corpuscular Volume 75.2 fL (80.0-100.0); Mean Platelet Volume 9.5 fL (9.4-12.4); Monocytes % (auto) 6.9 %; Neutrophils # (auto) 8.56 K/uL (1.40-6.50); Neutrophils % (auto) 84.9 %; Platelet Count 231 K/uL (130-400); RDW Coefficient of Variation 19.7 % (11.5-14.5); Red Blood Count 5.05 M/uL (4.70-6.10); White Blood Count 10.09 K/ul (4.8-10.8)
--- NOTE | 2025-02-19 16:52 | Emergency Department Note ---
Impression & Plan Diverticulitis of colon with perforation, (HFpEF) heart failure with preserved ejection fraction, Atrial flutter, Coronary artery disease, Elevated troponin ED Provider Note NAME: LILY SALAS AGE: 89 SEX: M : 1935 ARRIVES VIA: Walk-In INFORMANT: Patient ED PROVIDER(S): Santiago Kemp MD CHIEF COMPLAINT: Weakness PLAN: Disposition: Admit MEDICAL DECISION MAKING: The patient is a pleasant 89-year-old gentleman with past medical history of HFpEF, atrial flutter on Eliquis, hypertension, history of bladder cancer, history of tongue cancer, CAD, hyperlipidemia, hypothyroidism, type 2 diabetes who presents emergency department via walk-in accompanied by his for evaluation of generalized weakness, malaise, fevers that have been ongoing for the past week in the setting of traveling to [place] with his . He denies chest pain. He reports increased shortness of breath with exertion. He reports a dry cough. He reports frequent intermittent nausea but denies vomiting. He denies any urinary symptoms. When discussed with the patient the onset of his symptoms he begins to explain that his decline started over a year ago when he had COVID-19 and things have been "going downhill since then". More recently he describes having episode of severe lower abdominal pain approximately a month ago that had progressively resolved but had continuation of frequent nausea and poor appetite. He reports throughout his travel in [place] he was not feeling well. Patient reports he was in his kitchen today and lost his balance due to his weakness and fell onto his right side but denied having any injuries or pain from the fall. He was able to get up on his own and ambulate. He is confident he did not have any head strike or loss of consciousness. He denies any neck or back pain. On evaluation the patient is in no acute distress, febrile to 39.5 with O2 saturation down to 87% on room air placed on 2 L nasal cannula and vital signs otherwise stable. He appears clinically dry. Lungs are clear. Abdomen is mildly distended but soft with mild tenderness in the mid abdomen without guarding or rebound. He does have a soft easily reducible umbilical hernia. EKG without overt acute ischemia. CXR with interstitial thickening per my personal preliminary review/interpretation. WBC within normal limits. Platelets within normal limits. H/H 11.4/38, decreased from recent. Chemistry without metabolic acidosis. Magnesium 1.6 with IV repletion provided. Total bilirubin 1.3, nonspecific with AST and ALT otherwise normal. High styptic troponin is 146, nonspecific. Procalcitonin is not elevated. UA without evidence of infection. Respiratory BioFire was negative. CT of the abdomen pelvis was performed and demonstrates evidence evidence of colonic wall perforation where newly marked fat smudging, soft tissue thickening and fluid surrounding the sigmoid colon is noted with reasonable mesenteric and upper abdominal free air densities which given patient's prior CT imaging (06/24/2024) that demonstrated evidence of diverticulitis suspect may be related to this in the setting of the patient's report of having lower abdominal pain approximately a month ago. 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 Patient treated initially with IV ceftriaxone given presentation concerning for sepsis. Given CT findings IV antibiotics was broadened with IV Zosyn. Patient was treated with IV fluid hydration with caution given history of CHF and 1500 cc of normal saline was administered and 30 cc/KG of fluids was deferred. Case was discussed with Drea Francis general surgery [place] with Dr. Lema general surgery. Agrees with admission to medicine service for IV antibiotics. Will assess the patient at the bedside. Appreciate consultation/recommendations. Case was d/[place]. [place] [facility] [place] who will evaluate the patient for admission. Further management per admitting team. Triage Nursing notes reviewed and agree them. Prior/external medical records reviewed Vital Signs: reviewed Differential diagnosis: Viral syndrome, otitis, pharyngitis, pneumonia, influenza, meningitis, urinary tract infection, sepsis, bacteremia, as well as other pathologies. ER treatment provided: See below. Diagnostics interpreted by me: ECG: Atrial flutter with variable AV block, 89 bpm, LVH, no overt ST elevation or depression, QTc 452, QRS 100. Cardiac Monitoring: An order for continuous cardiac monitoring was placed and demonstrated Atrial flutter with variable AV block, 89 bpm, no ectopy. Laboratory studies: See below Imaging studies: See below Consultation(s): Drea Francis general surgery [place] with Dr. Lema general surgery Dr. Henderson [facility] [place] HPI: Per MDM. ROS: See above HPI for pertinent positives & negatives. A total of 10 systems reviewed and were otherwise negative. VITALS:See Below PHYSICAL EXAMINATION: GENERAL: Awake, alert, fatigued-appearing, in no distress HENT: Normocephalic, atraumatic. Oropharynx with dry mucous membranes and otherwise unremarkable. EYES: Normal conjunctiva. Sclera non-icteric. NECK: Supple. No nuchal rigidity. FROM. No JVD. RESPIRATORY: Clear to auscultation. CARDIAC: Regular rate, normal rhythm. Extremities warm and well perfused. Pulses equal. ABDOMEN: Mild distension but soft. Mild mid abdominal tenderness to palpation. No rebound or guarding. Soft easily reducible umbilical hernia. MUSCULOSKELETAL: Chest examination reveals no tenderness. The back is symmetrical on inspection without obvious abnormality. There is no CVA tenderness to palpation. No joint edema. LOWER EXTREMITIES: Calves are equal size bilaterally and non-tender. No edema. No discoloration. NEURO: Normal sensorium. No sensory or motor deficits noted. SKIN: No rash or jaundice noted. Santiago Kemp MD Past Med/Surg History Problem List (Updated 02/20/25 @ 03:25 by Santiago Kemp MD) Elevated troponin (Acute) Diverticulitis of colon with perforation (Acute) Type 2 diabetes mellitus with obesity Coronary artery disease (Acute) 40% left main, 60% proximal LAD, chronic total occlusion of the right coronary artery on catheterization 2006. 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 S/p radiation & chemotherapy. H/O diverticulitis of colon Diverticulosis Hematuria Hx of bladder cancer dx 2003, sx tx Hx of renal calculi BPH (benign prostatic hyperplasia) Myocardial Infarction (~1978) no intervention at that time. 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 [place] [facility] [place] Carotid stenosis Surgical History S/P cystoscopy with ureteral stent placement w/stone basketing History of cataract surgery rt/lt History of open reduction and internal fixation (ORIF) procedure Right femur Status post Mohs surgery History of cardiac cath "at least 6-7 years ago, unsure why he had to have them done," [facility], x2 with no stents; f/u dr. [place], [place] History of carotid endarterectomy 09/2015, Left History of tonsillectomy History of surgery on wrist (~1974) History of cystoscopy 2003, with TURBT>had redone at [facility] History of colonoscopy History of prostate biopsy Family History Other Family history not known due to adoption Social History Smoking Status: Never smoker Tobacco Type: Cigarettes Age Started Using Tobacco: 22; Age Quit Using Tobacco: 51; packs per day: 1; Second Hand Exposure: No; Do You Dip or Chew Tobacco: No; Tobacco Cessation Education Requested by Patient: No Hx Alcohol Use: Yes Alcohol type: beer and wine Alcohol Intake Frequency: 4 or More x per/Week Hx Substance Use: No Preferred Language: American Communication Ability: Effective Visual Impairment: Limited Hearing Ability: Use of Hearing Aid Electric Engine Mechanic Required: No Beliefs That Will Affect Care: None marital status: Current Living Situation: Spouse Current Living Situation Comment: Lives at home with current occupational status: employed current occupation: [employer] How many Children do You have: 2 Other Information That Helps Us Care for You: No Feels Safe at Home: Yes Childhood Exposure to Second-Hand Smoke: No caffeine: Yes (coffee) Dental Care, Regularly: Yes Physical Activity Frequency: 3-4 Times per Week Physical Activity Frequency Comment: does a lot of yardwork in the summer time Seatbelt Use: always Sunscreen Use: No Assistive Devices: Glasses and Hearing Aid - Bilateral Assistive Devices Comment: upper dental retainer Allergies Allergies Allergy/AdvReac Type Severity Reaction Status Date / Time No Known Allergies Allergy Verified 02/19/25 19:58 Home Meds Home Medications Medication Instructions Recorded Confirmed calcium 600 mg (as 1 tab PO QAM 04/10/21 02/19/25 carbonate)-vitamin D3 5 mcg (200 unit) tablet coenzyme Q10 100 mg capsule 100 mg PO QAM 04/10/21 02/19/25 (CoQ-10) tamsulosin 0.4 mg capsule 0.4 mg PO HS 05/19/24 02/19/25 betamethasone dipropionate 0.05 % 1 applic topical DAILY PRN ITCHY 02/19/25 02/19/25 lotion SCALP cholecalciferol (vitamin D3) 25 25 mcg PO DAILY 02/19/25 02/19/25 mcg (1,000 unit) capsule (Vitamin D3) levothyroxine 75 mcg tablet 75 mcg PO DAILYBB 02/19/25 02/19/25 omega-3 fatty acids 1,000 mg 1,000 mg PO QAM 02/19/25 02/19/25 capsule zinc gluconate 50 mg tablet 50 mg PO DAILY 02/19/25 02/19/25 Previous Rx's Medication Instructions Recorded desoximetasone 0.25 % topical cream 1 applic topical BID PRN rash #15 07/26/23 grams apixaban 5 mg tablet (Eliquis) 5 mg PO BID #180 tabs 05/04/24 atorvastatin 80 mg tablet 80 mg PO HS #90 tabs 07/08/24 epinephrine 0.3 mg/0.3 mL 0.3 mg (0.3 mL) IM Q10M PRN 07/08/24 injection, auto-injector (EpiPen anaphylaxis #2 ea 2-Prabhu) finasteride 5 mg tablet 5 mg PO HS #90 tabs 01/06/25 furosemide 80 mg tablet 80 mg PO QAM #90 tabs 02/11/25 zolpidem 6.25 mg tablet,extended 6.25 mg PO HS SLEEP #90 tabs 02/17/25 release,multiphase Results & Data (ED) Vital Signs Vital Signs - 24 hr 02/19/25 15:49 02/19/25 16:08 02/19/25 16:08 Temperature 39.5 C H Temperature Source Oral Pulse Rate 85 Pulse Rate [Apical] 81 Pulse Rhythm [Apical] Pulse Strength [Apical] Respiratory Rate 18 22 Respiratory Effort / Characteristics Respiratory Depth Normal Respiratory Pattern Blood Pressure 116/71 Blood Pressure [Left Arm] 113/81 Blood Pressure Mean 86 Blood Pressure Mean [Left Arm] 91 Blood Pressure Position [Left Arm] Lying Pulse Oximetry 90 87 L 93 Oxygen Delivery Method Room Air Room Air Nasal Cannula Nasal Cannula Oxygen Flow Rate 2 Sepsis Recent Fever Within 48 Hours Yes Sepsis New/Unexplained Change in Mental Status No Sepsis Action Taken by Nursing No Action Required Oxygen Flow Rate - Titration 2 Pulse Oximetry Post Tiitration 93 02/19/25 16:14 02/19/25 16:29 02/19/25 17:15 Temperature 37.2 C Temperature Source Oral Pulse Rate 86 Pulse Rate [Apical] 83 Pulse Rhythm [Apical] Pulse Strength [Apical] Respiratory Rate 22 Respiratory Effort / Characteristics Respiratory Depth Respiratory Pattern Blood Pressure Blood Pressure [Left Arm] Blood Pressure Mean Blood Pressure Mean [Left Arm] Blood Pressure Position [Left Arm] Pulse Oximetry 93 Oxygen Delivery Method Nasal Cannula Oxygen Flow Rate 2 Sepsis Recent Fever Within 48 Hours Sepsis New/Unexplained Change in Mental Status Sepsis Action Taken by Nursing Oxygen Flow Rate - Titration Pulse Oximetry Post Tiitration 02/19/25 18:00 02/19/25 19:00 02/19/25 20:00 Temperature Temperature Source Pulse Rate Pulse Rate [Apical] 65 61 60 Pulse Rhythm [Apical] Regular Regular Pulse Strength [Apical] Normal Normal Respiratory Rate 20 17 18 Respiratory Effort / Characteristics Non-Labored Spontaneous Non-Labored Spontaneous Respiratory Depth Normal Normal Respiratory Pattern Regular Regular Blood Pressure Blood Pressure [Left Arm] 98/58 L Blood Pressure Mean Blood Pressure Mean [Left Arm] 71 Blood Pressure Position [Left Arm] Pulse Oximetry 94 95 96 Oxygen Delivery Method Nasal Cannula Room Air Room Air Oxygen Flow Rate 2 Sepsis Recent Fever Within 48 Hours Sepsis New/Unexplained Change in Mental Status Sepsis Action Taken by Nursing Oxygen Flow Rate - Titration Pulse Oximetry Post Tiitration 02/19/25 20:13 02/19/25 21:00 Temperature Temperature Source Pulse Rate 57 L Pulse Rate [Apical] 61 Pulse Rhythm [Apical] Regular Pulse Strength [Apical] Normal Respiratory Rate 18 Respiratory Effort / Characteristics Non-Labored Spontaneous Respiratory Depth Normal Respiratory Pattern Regular Blood Pressure Blood Pressure [Left Arm] 122/73 Blood Pressure Mean Blood Pressure Mean [Left Arm] 89 Blood Pressure Position [Left Arm] Semi-fowlers Pulse Oximetry 96 Oxygen Delivery Method Room Air Oxygen Flow Rate Sepsis Recent Fever Within 48 Hours Sepsis New/Unexplained Change in Mental Status Sepsis Action Taken by Nursing Oxygen Flow Rate - Titration Pulse Oximetry Post Tiitration Laboratory Data Attestation: I reviewed the patient's lab results. 02/19/25 16:15 02/19/25 16:15 Lab Results 02/19/25 02/19/25 02/19/25 Range/Units 16:15 16:15 16:15 WBC 10.09 (4.8-10.8) K/ul RBC 5.05 (4.70-6.10) M/uL Hgb 11.4 L (14.0-18.0) g/dl Hct 38.0 L (42.0-52.0) % MCV 75.2 L (80.0-100.0) fL MCH 22.6 L (25.0-34.0) pg MCHC 30.0 L (32.0-36.0) g/dL RDW Std Deviation 51.0 H (36.4-46.3) fL RDW Coeff of Kay 19.7 H (11.5-14.5) % Plt Count 231 (130-400) K/uL MPV 9.5 (9.4-12.4) fL Immature Gran % (Auto) 0.5 % Neut % (Auto) 84.9 % Lymph % (Auto) 7.3 % Burke % (Auto) 6.9 % Eos % (Auto) 0.1 % Baso % (Auto) 0.3 % Neut # (Auto) 8.56 H (1.40-6.50) K/uL Lymph # (Auto) 0.74 L (1.20-3.40) K/uL Burke # (Auto) 0.70 H (0.11-0.59) K/uL Eos # (Auto) 0.01 (0.00-0.50) K/uL Baso # (Auto) 0.03 (0.00-0.20) K/uL Immature Gran # (Auto) 0.05 (0.01-0.20) K/uL PT 14.5 H (9.0-12.0) Seconds INR 1.4 H (0.9-1.1) APTT 27 (21-31) Seconds PTT Ratio 1.0 Sodium 135 L (136-145) mmol/L Potassium 4.2 (3.5-5.1) mmol/L Chloride 102 (98-107) mmol/L Carbon Dioxide 28 (21-32) mmol/L Anion Gap 5 (3-11) BUN 36 H (6-23) mg/dl Creatinine 1.27 (0.6-1.4) mg/dl Est Cr Clr Drug Dosing 42.7 ml/min eGFR 54.34 BUN/Creatinine Ratio 28.3 H (10-20) Glucose 179 H (70-99(Fasting)) mg/dl Lactate (0.4-2.0) mmol/L Calcium 9.1 (8.6-10.3) mg/dl Magnesium 1.6 L (1.7-2.4) mg/dl Total Bilirubin 1.3 H (0.2-1.0) mg/dl AST 30 (13-39) U/L ALT 23 (7-52) U/L Alkaline Phosphatase 253 H (34-104) U/L Troponin I High Sens (0-20) pg/ml Total Protein 7.4 (6.0-8.3) gm/dl Albumin 3.6 (3.4-5.0) gm/dl Globulin 3.8 (2.5-4.0) gm/dl Albumin/Globulin Ratio 0.9 (0.9-2) Procalcitonin 0.27 (0-0.5) ng/ml Urine Color Urine Appearance (Clear) Urine pH (4.5-7.5) Ur Specific [place] (1.000-1.030) Urine Protein (Negative) Urine Glucose (UA) (Negative) Urine Ketones (Negative) Urine Blood (Negative) Urine Nitrite (Negative) Urine Bilirubin (Negative) Urine Urobilinogen (Negative) Ur Leukocyte Esterase (Negative) Urine WBC (Auto) (0-5) /hpf Urine RBC (Auto) (0-2) /hpf U Hyaline Cast (Auto) (0-2) /lpf U Epithel Cells (Auto) (0-2) /hpf Urine Bacteria (Auto) (None Seen) Adenovirus (PCR) Not Detected (NotDetected) B. pertussis DNA (PCR) Not Detected (NotDetected) B.parapertussis DNA PCR Not Detected (NotDetected) C. pneumoniae DNA (PCR) Not Detected (NotDetected) Coronavirus OC43 (PCR) Not Detected (NotDetected) Coronavirus HKU1 (PCR) Not Detected (NotDetected) Coronavirus 229E (PCR) Not Detected (NotDetected) SARS-CoV-2 (PCR) NEGATIVE Not Detected (Negative) Coronavirus NL63 (PCR) Not Detected (NotDetected) Human Metapneumovir PCR Not Detected (NotDetected) Influenza Type A (PCR) Negative Not Detected (Neg) Influenza Type B (PCR) Negative (Neg) M. pneumoniae (PCR) (NotDetected) Parainfluenza 1 (PCR) (NotDetected) Parainfluenza 2 (PCR) (NotDetected) Parainfluenza 3 (PCR) (NotDetected) Parainfluenza 4 (PCR) (NotDetected) RSV (RT-PCR) (Neg) RSV (PCR) (NotDetected) Entero/Rhino (PCR) (NotDetected) 02/19/25 02/19/25 02/19/25 Range/Units 16:15 17:35 18:37 WBC (4.8-10.8) K/ul RBC (4.70-6.10) M/uL Hgb (14.0-18.0) g/dl Hct (42.0-52.0) % MCV (80.0-100.0) fL MCH (25.0-34.0) pg MCHC (32.0-36.0) g/dL RDW Std Deviation (36.4-46.3) fL RDW Coeff of Kay (11.5-14.5) % Plt Count (130-400) K/uL MPV (9.4-12.4) fL Immature Gran % (Auto) % Neut % (Auto) % Lymph % (Auto) % Burke % (Auto) % Eos % (Auto) % Baso % (Auto) % Neut # (Auto) (1.40-6.50) K/uL Lymph # (Auto) (1.20-3.40) K/uL Burke # (Auto) (0.11-0.59) K/uL Eos # (Auto) (0.00-0.50) K/uL Baso # (Auto) (0.00-0.20) K/uL Immature Gran # (Auto) (0.01-0.20) K/uL PT (9.0-12.0) Seconds INR (0.9-1.1) APTT (21-31) Seconds PTT Ratio Sodium (136-145) mmol/L Potassium (3.5-5.1) mmol/L Chloride (98-107) mmol/L Carbon Dioxide (21-32) mmol/L Anion Gap (3-11) BUN (6-23) mg/dl Creatinine (0.6-1.4) mg/dl Est Cr Clr Drug Dosing ml/min eGFR BUN/Creatinine Ratio (10-20) Glucose (70-99(Fasting)) mg/dl Lactate 1.1 (0.4-2.0) mmol/L Calcium (8.6-10.3) mg/dl Magnesium (1.7-2.4) mg/dl Total Bilirubin (0.2-1.0) mg/dl AST (13-39) U/L ALT (7-52) U/L Alkaline Phosphatase (34-104) U/L Troponin I High Sens (0-20) pg/ml Total Protein (6.0-8.3) gm/dl Albumin (3.4-5.0) gm/dl Globulin (2.5-4.0) gm/dl Albumin/Globulin Ratio (0.9-2) Procalcitonin (0-0.5) ng/ml Urine Color Dark Yellow Urine Appearance Clear (Clear) Urine pH 6.0 (4.5-7.5) Ur Specific [place] 1.041 H (1.000-1.030) Urine Protein 2+ H (Negative) Urine Glucose (UA) Negative (Negative) Urine Ketones Trace H (Negative) Urine Blood Negative (Negative) Urine Nitrite Negative (Negative) Urine Bilirubin Negative (Negative) Urine Urobilinogen Negative (Negative) Ur Leukocyte Esterase Negative (Negative) Urine WBC (Auto) 0-5 (0-5) /hpf Urine RBC (Auto) 0-2 (0-2) /hpf U Hyaline Cast (Auto) 0-2 (0-2) /lpf U Epithel Cells (Auto) 0-2 (0-2) /hpf Urine Bacteria (Auto) None Seen (None Seen) Adenovirus (PCR) (NotDetected) B. pertussis DNA (PCR) (NotDetected) B.parapertussis DNA PCR (NotDetected) C. pneumoniae DNA (PCR) (NotDetected) Coronavirus OC43 (PCR) (NotDetected) Coronavirus HKU1 (PCR) (NotDetected) Coronavirus 229E (PCR) (NotDetected) SARS-CoV-2 (PCR) (Negative) Coronavirus NL63 (PCR) (NotDetected) Human Metapneumovir PCR (NotDetected) Influenza Type A (PCR) (Neg) Influenza Type B (PCR) Not Detected (Neg) M. pneumoniae (PCR) Not Detected (NotDetected) Parainfluenza 1 (PCR) Not Detected (NotDetected) Parainfluenza 2 (PCR) Not Detected (NotDetected) Parainfluenza 3 (PCR) Not Detected (NotDetected) Parainfluenza 4 (PCR) Not Detected (NotDetected) RSV (RT-PCR) Negative (Neg) RSV (PCR) Not Detected (NotDetected) Entero/Rhino (PCR) Not Detected (NotDetected) 02/19/25 Range/Units 19:10 WBC (4.8-10.8) K/ul RBC (4.70-6.10) M/uL Hgb (14.0-18.0) g/dl Hct (42.0-52.0) % MCV (80.0-100.0) fL MCH (25.0-34.0) pg MCHC (32.0-36.0) g/dL RDW Std Deviation (36.4-46.3) fL RDW Coeff of Kay (11.5-14.5) % Plt Count (130-400) K/uL MPV (9.4-12.4) fL Immature Gran % (Auto) % Neut % (Auto) % Lymph % (Auto) % Burke % (Auto) % Eos % (Auto) % Baso % (Auto) % Neut # (Auto) (1.40-6.50) K/uL Lymph # (Auto) (1.20-3.40) K/uL Burke # (Auto) (0.11-0.59) K/uL Eos # (Auto) (0.00-0.50) K/uL Baso # (Auto) (0.00-0.20) K/uL Immature Gran # (Auto) (0.01-0.20) K/uL PT (9.0-12.0) Seconds INR (0.9-1.1) APTT (21-31) Seconds PTT Ratio Sodium (136-145) mmol/L Potassium (3.5-5.1) mmol/L Chloride (98-107) mmol/L Carbon Dioxide (21-32) mmol/L Anion Gap (3-11) BUN (6-23) mg/dl Creatinine (0.6-1.4) mg/dl Est Cr Clr Drug Dosing ml/min eGFR BUN/Creatinine Ratio (10-20) Glucose (70-99(Fasting)) mg/dl Lactate (0.4-2.0) mmol/L Calcium (8.6-10.3) mg/dl Magnesium (1.7-2.4) mg/dl Total Bilirubin (0.2-1.0) mg/dl AST (13-39) U/L ALT (7-52) U/L Alkaline Phosphatase (34-104) U/L Troponin I High Sens 146.1 H* (0-20) pg/ml Total Protein (6.0-8.3) gm/dl Albumin (3.4-5.0) gm/dl Globulin (2.5-4.0) gm/dl Albumin/Globulin Ratio (0.9-2) Procalcitonin (0-0.5) ng/ml Urine Color Urine Appearance (Clear) Urine pH (4.5-7.5) Ur Specific [place] (1.000-1.030) Urine Protein (Negative) Urine Glucose (UA) (Negative) Urine Ketones (Negative) Urine Blood (Negative) Urine Nitrite (Negative) Urine Bilirubin (Negative) Urine Urobilinogen (Negative) Ur Leukocyte Esterase (Negative) Urine WBC (Auto) (0-5) /hpf Urine RBC (Auto) (0-2) /hpf U Hyaline Cast (Auto) (0-2) /lpf U Epithel Cells (Auto) (0-2) /hpf Urine Bacteria (Auto) (None Seen) Adenovirus (PCR) (NotDetected) B. pertussis DNA (PCR) (NotDetected) B.parapertussis DNA PCR (NotDetected) C. pneumoniae DNA (PCR) (NotDetected) Coronavirus OC43 (PCR) (NotDetected) Coronavirus HKU1 (PCR) (NotDetected) Coronavirus 229E (PCR) (NotDetected) SARS-CoV-2 (PCR) (Negative) Coronavirus NL63 (PCR) (NotDetected) Human Metapneumovir PCR (NotDetected) Influenza Type A (PCR) (Neg) Influenza Type B (PCR) (Neg) M. pneumoniae (PCR) (NotDetected) Parainfluenza 1 (PCR) (NotDetected) Parainfluenza 2 (PCR) (NotDetected) Parainfluenza 3 (PCR) (NotDetected) Parainfluenza 4 (PCR) (NotDetected) RSV (RT-PCR) (Neg) RSV (PCR) (NotDetected) Entero/Rhino (PCR) (NotDetected) Administered Medications Finasteride (Finasteride 5 Mg Tab) 5 mg PO HS VERONICA Stop: 03/21/25 23:09 Last Admin: 02/19/25 23:30 Dose: 5 mg Documented By: LEONELA Lactated Ringer's (Lr) 1,000 mls @ 80 mls/hr IV .[id number] VERONICA Stop: 02/21/25 11:54 Last Admin: 02/19/25 22:54 Dose: 80 mls/hr Documented By: LEONELA Piperacillin Sod/Tazobactam Sod (Zosyn) 4.5 gm in 100 mls @ 25 mls/hr IV Q8H VERONICA; Protocol Stop: 03/02/25 01:59 Last Admin: 02/20/25 01:59 Dose: 25 mls/hr Documented By: LEONELA Tamsulosin HCl (Tamsulosin Hcl 0.4 Mg Cap) 0.4 mg PO HS VERONICA Stop: 03/21/25 23:09 Last Admin: 02/19/25 23:30 Dose: 0.4 mg Documented By: LEONELA Zolpidem Tartrate (Zolpidem Tartrate 5 Mg Tab) 5 mg PO HS PRN PRN Reason: Insomnia Stop: 03/21/25 23:12 Last Admin: 02/19/25 23:30 Dose: 5 mg Documented By: MCS Discontinued Medications Acetaminophen (Ofirmev) 1,000 mg in 100 mls @ 400 mls/hr IV NOW STA Stop: 02/19/25 16:10 Last Infusion: 02/19/25 17:03 Dose: Infused Documented By: Admin: 02/19/25 16:22 Dose: 400 mls/hr Documented By: QGV Sodium Chloride (Nss) 500 mls @ 999 mls/hr IV .Q31M ONE Stop: 02/19/25 16:38 Last Infusion: 02/19/25 17:03 Dose: Infused Documented By: Admin: 02/19/25 16:22 Dose: 999 mls/hr Documented By: QGV Magnesium Sulfate/Dextrose (Magnesium Sulfate / D5w) 1 gm in 100 mls @ 100 mls/hr IV NOW STA Stop: 02/19/25 18:19 Last Infusion: 02/19/25 18:39 Dose: Infused Documented By: Admin: 02/19/25 17:33 Dose: 100 mls/hr Documented By: QGV Ceftriaxone Sodium (Rocephin) 2,000 mg in 50 mls @ 100 mls/hr IV NOW STA Stop: 02/19/25 17:50 Last Infusion: 02/19/25 18:17 Dose: Infused Documented By: Admin: 02/19/25 17:37 Dose: 100 mls/hr Documented By: QGV Sodium Chloride (Nss) 1,000 mls @ 999 mls/hr IV .Q1H1M ONE Stop: 02/19/25 19:15 Last Infusion: 02/19/25 19:28 Dose: Infused Documented By: Admin: 02/19/25 18:19 Dose: 999 mls/hr Documented By: DINA Piperacillin Sod/Tazobactam Sod (Zosyn) 4.5 gm in 100 mls @ 200 mls/hr IV NOW ONE; Protocol Stop: 02/19/25 20:33 Last Infusion: 02/19/25 20:59 Dose: Infused Documented By: Admin: 02/19/25 20:24 Dose: 200 mls/hr Documented By: ISAAC Ioversol (Optiray 320 100ml) 90 ml IV ONCE ONE Stop: 02/19/25 17:20 Last Admin: 02/19/25 17:19 Dose: 90 ml Documented By: ROSEMARIE Imaging Data Radiologist's Impression: Chest X-Ray 02/19/25 15:54 Technique: A frontal view of the chest was obtained Comparison is made to the prior examination dated 04/05/2024 Findings: There is suspected mild pulmonary edema. There is unchanged cardiomegaly. No pleural effusion or pneumothorax is seen. No fracture is noted. No foreign body is seen Impression: Cardiomegaly and suspected mild pulmonary edema ACT 112: Positive. There are findings on this exam that require communication between the performing entity and the patient following Patient Test Result Information Act ([place] ACT 112) guidelines. Electronically signed by Imer Nunez 02-19-2025 4:32 PM Abdomen/Pelvis CT 02/19/25 16:51 EXAM: CT abd pelvis IV con only CLINICAL HISTORY: Abdominal pain, constipation, fever, hypoxia TECHNIQUE: CT of the abdomen and pelvis was performed with contrast, with the following protocol: axial images with, and reconstructed coronal and sagittal images. One of the following dose reduction techniques was utilized for this exam: Automated exposure control, adjustment of the mA and/or kV according to patient size, and use of iterative reconstruction. DLP: 1271.76 mGy-cm, CTDI: 25.4 mGy. COMPARISON: CT abdomen on 06/24/2024. FINDINGS: Abdomen: Liver: Normal in size, shape, and density. No focal lesions, cysts, or masses were identified. Gallbladder and Biliary System: Multiple hyperdense gallbladder stones are noted . Pancreas: Pancreatic head, body, and tail are visualized and appear normal in size and density. No pancreatic masses or calcifications were noted. Spleen: Normal in size, shape, and density. No splenic lesions or masses were identified. Splenic calcific fluid are noted likely granulomatous. Kidneys and Adrenal Glands: Averages sized both kidneys. The right kidney shows areas of parenchymal scarring with small middle and lower calyceal stones measuring 2 mm and 5 mm. Few left renal cortical cysts measuring up to 7.5 X 6 cm (Bosniak type I ). No renal hydronephrosis. Adrenal glands are unremarkable. Abdominal Aorta and Vessels: Atheromatous calcifications of the aorta and both iliac vessels. Pelvis: Diffuse urinary bladder wall thickening with a small diverticulum in the anterior wall likely due to chronic outflow obstruction. Moderately enlarged prostate. Indenting the urinary bladder base. no definite focal lesions. Seminal Vesicles: Normal appearance without abnormal enlargement or mass. Peritoneal and Retroperitoneal Structures: No lymphadenopathy was noted. Bilateral spermatic cord lipomatosis, larger on the left side. 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 Minimal ascites. Bowel: Diverticular disease of the colon with marked Fat smudging, soft tissue thickening, and minimal fluid seen surrounding the sigmoid colon with regional mesenteric and upper abdominal free air densities likely due to colonic wall perforation. No evidence of bowel obstruction. 2.9 x 1.3 cm oval-shaped fatty lesion with hyperattenuating rim near the descending colon, suggest epiploic appendagitis. (new) Bones and Soft Tissues: Internal fixation of the right hip by dynamic hip screw. Scanned lower chest cuts show bilateral basal atelectatic bands and cardiomegaly. Hiatal hernia is noted. IMPRESSION: 1. Diverticular disease of the colon. 2. Newly noted marked Fat smudging, soft tissue thickening, and minimal fluid seen surrounding the sigmoid colon with regional mesenteric and upper abdominal free air densities likely due to colonic wall perforation. (new) 3. Minimal ascites. (newly noted). 4. 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 (stable) 5. 2.9 x 1.3 cm oval-shaped fatty lesion with hyperattenuating rim near the descending colon, suggest epiploic appendagitis. (new) 6. Cholelithiasis. 7. The rest of the study is unchanged since the last study as detailed above. Electronically signed by Toni Rodriguez 02-19-2025 7:20 PM Discharge Plan Visit Data Chief Complaint: Weakness Stated Complaint: FEVER, SOB, WEAKNESS ED Provider: Santiago Kemp Discharge Problem: Diverticulitis of colon with perforation, (HFpEF) heart failure with preserved ejection fraction, Atrial flutter, Coronary artery disease, Elevated troponin Patient Disposition: Admitted As Inpatient Condition: Fair Discharge Instructions Interventions: ED Discharge Assessment Last Done: 02/19/25 22:03 Discharge Problem: (HFpEF) heart failure with preserved ejection fraction Qualifiers: Heart failure chronicity: chronic Qualified Code(s): I50.32 - Chronic diastolic (congestive) heart failure Atrial flutter Qualifiers: Atrial flutter type: unspecified Qualified Code(s): I48.92 - Unspecified atrial flutter Coronary artery disease Qualifiers: Coronary Disease-Associated Artery/Lesion type: unspecified vessel or lesion type [place] vs. transplanted heart: [place] heart Associated angina: unspecified whether angina present Qualified Code(s): I25.10 - Atherosclerotic heart disease of [place] coronary artery without angina pectoris
[2025-02-19 16:58] LABS: Albumin Globulin Ratio 0.9 (0.9-2); Albumin Level 3.6 gm/dl (3.4-5.0); BUN Creatinine Ratio 28.3 (10-20); Bilirubin,Total 1.3 mg/dl (0.2-1.0); Calcium 9.1 mg/dl (8.6-10.3); Creatinine Clr Calc Pharmacy 42.7 ml/min; Globulin 3.8 gm/dl (2.5-4.0); Magnesium 1.6 mg/dl (1.7-2.4); Potassium 4.2 mmol/L (3.5-5.1); Total Protein 7.4 gm/dl (6.0-8.3)
[2025-02-19 17:05] LABS: INR 1.4 (0.9-1.1); Partial Thromboplastin Time 27 Seconds (21-31); Prothrombin Time 14.5 Seconds (9.0-12.0)
[2025-02-19 17:09] LABS: Influenza A virus by PCR Negative (Neg); Influenza B virus by PCR Negative (Neg); RSV by PCR Negative (Neg); SARS CoV2 RNA(COVID-19) Ceph NEGATIVE (Negative)
[2025-02-19] MEDS: OPTIRAY 320 100ml IV ONE (17:19)
[2025-02-19] MEDS: MAGNESIUM SULFATE / D5W 1 GM/100 ML BAG IV STA (17:33)
[2025-02-19] MEDS: cefTRIAXone SODIUM 2,000 MG/50 ML BAG IV STA (17:37)
[2025-02-19] MEDS: SODIUM CHLORIDE 0.9% 1,000 ML IV ONE (18:19)
[2025-02-19 18:36] LABS: Adenovirus PCR Not Detected (NotDetected); Bordetella parapertussis PCR Not Detected (NotDetected); Bordetella pertussis PCR Not Detected (NotDetected); Chlamydia pneumoniae PCR Not Detected (NotDetected); Coronavirus 229E PCR Not Detected (NotDetected); Coronavirus CoV-2 (COVID19)PCR Not Detected (NotDetected); Coronavirus HKU1 PCR Not Detected (NotDetected); Coronavirus NL63 PCR Not Detected (NotDetected); Coronavirus OC43PCR Not Detected (NotDetected); Human Metapneumovirus PCR Not Detected (NotDetected); Influenza A PCR Not Detected (NotDetected); Influenza B PCR Not Detected (NotDetected); Mycoplasma pneumoniae PCR Not Detected (NotDetected); Parainfluenza Virus 1 PCR Not Detected (NotDetected); Parainfluenza Virus 2 PCR Not Detected (NotDetected); Parainfluenza Virus 3 PCR Not Detected (NotDetected); Parainfluenza Virus 4 PCR Not Detected (NotDetected); Respiratory Syncytial VirusPCR Not Detected (NotDetected); Rhinovirus/Enterovirus PCR Not Detected (NotDetected)
[2025-02-19 18:54] LABS: Appearance Urine Clear (Clear); Bacteria Urine Automated None Seen (None Seen); Bilirubin Urine Negative (Negative); Blood Urine Negative (Negative); Cast Urine Automated 0-2 /lpf (0-2); Color Urine Dark Yellow; Epithelial Cell Urine Auto 0-2 /hpf (0-2); Glucose Urine UA Negative (Negative); Ketones Urine Trace (Negative); Leukocyte Esterase Urine Negative (Negative); Nitrite Urine Negative (Negative); Protein Urine 2+ (Negative); RBC Urine Automated 0-2 /hpf (0-2); Specific Gravity Urine 1.041 (1.000-1.030); Urobilinogen Urine Negative (Negative); WBC Urine Automated 0-5 /hpf (0-5)
--- NOTE | 2025-02-19 19:21 | CT Scan Report ---
EXAM: CT abd pelvis IV con only CLINICAL HISTORY: Abdominal pain, constipation, fever, hypoxia TECHNIQUE: CT of the abdomen and pelvis was performed with contrast, with the following protocol: axial images with, and reconstructed coronal and sagittal images. One of the following dose reduction techniques was utilized for this exam: Automated exposure control, adjustment of the mA and/or kV according to patient size, and use of iterative reconstruction. DLP: 1271.76 mGy-cm, CTDI: 25.4 mGy. COMPARISON: CT abdomen on 06/24/2024. FINDINGS: Abdomen: Liver: Normal in size, shape, and density. No focal lesions, cysts, or masses were identified. Gallbladder and Biliary System: Multiple hyperdense gallbladder stones are noted . Pancreas: Pancreatic head, body, and tail are visualized and appear normal in size and density. No pancreatic masses or calcifications were noted. Spleen: Normal in size, shape, and density. No splenic lesions or masses were identified. Splenic calcific fluid are noted likely granulomatous. Kidneys and Adrenal Glands: Averages sized both kidneys. The right kidney shows areas of parenchymal scarring with small middle and lower calyceal stones measuring 2 mm and 5 mm. Few left renal cortical cysts measuring up to 7.5 X 6 cm (Bosniak type I ). No renal hydronephrosis. Adrenal glands are unremarkable. Abdominal Aorta and Vessels: Atheromatous calcifications of the aorta and both iliac vessels. Pelvis: Diffuse urinary bladder wall thickening with a small diverticulum in the anterior wall likely due to chronic outflow obstruction. Moderately enlarged prostate. Indenting the urinary bladder base. no definite focal lesions. Seminal Vesicles: Normal appearance without abnormal enlargement or mass. Peritoneal and Retroperitoneal Structures: No lymphadenopathy was noted. Bilateral spermatic cord lipomatosis, larger on the left side. 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 Minimal ascites. Bowel: Diverticular disease of the colon with marked Fat smudging, soft tissue thickening, and minimal fluid seen surrounding the sigmoid colon with regional mesenteric and upper abdominal free air densities likely due to colonic wall perforation. No evidence of bowel obstruction. 2.9 x 1.3 cm oval-shaped fatty lesion with hyperattenuating rim near the descending colon, suggest epiploic appendagitis. (new) Bones and Soft Tissues: Internal fixation of the right hip by dynamic hip screw. Scanned lower chest cuts show bilateral basal atelectatic bands and cardiomegaly. Hiatal hernia is noted. IMPRESSION: 1. Diverticular disease of the colon. 2. Newly noted marked Fat smudging, soft tissue thickening, and minimal fluid seen surrounding the sigmoid colon with regional mesenteric and upper abdominal free air densities likely due to colonic wall perforation. (new) 3. Minimal ascites. (newly noted). 4. 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 (stable) 5. 2.9 x 1.3 cm oval-shaped fatty lesion with hyperattenuating rim near the descending colon, suggest epiploic appendagitis. (new) 6. Cholelithiasis. 7. The rest of the study is unchanged since the last study as detailed above. Electronically signed by Toni Rodriguez 02-19-2025 7:20 PM
[2025-02-19] MEDS: PIPERACILLIN/TAZOBACTAM 4.5 GM/100 ML BAG IV ONE (20:24)
--- NOTE | 2025-02-19 20:32 | Surgery Consultation ---
Date of Consultation February 19, 2025 Assessment & Plan (1) Diverticulitis of colon with perforation: Patient with ongoing weakness, generalized abdominal pain, and intermittent nausea with poor appetite who was found to have diverticulitis with perforation and small amount of fluid on CT imaging. The patient was seen and evaluated this evening at bedside. He is resting comfortably in bed, VSS, and has no signs of peritonitis. All labs and imaging reviewed and patient's case was discussed with attending surgeon Dr. Lema. From a surgical standpoint recommend the following: -Patient with no signs of acute abdomen that would warrant emergent surgical intervention, for now will plan to treat conservatively -Keep NPO, IV hydration, and continue broad spectrum antibiotics with Zosyn -Closely trend WBC and temps and serial abdominal exams -Would also recommend holding Eliquis for now -Medical management per primary team, surgery will continue to follow closely Supervising Physician Co-Signing Physician Notes Patient discussed with PAT, labs and imaging reviewed, agree with above. 89-year-old male presented with abdominal pain, CT with diverticulitis with some pneumoperitoneum, no abscess. Currently afebrile and stable, will treat nonoperatively with IV antibiotics and bowel rest. Hold Eliquis for now in case needs surgery or interventional radiology. History of Present Illness Reason for Consultation: sigmoid diverticulitis with perforation History of Present Illness Patient is an 89 year-old male with a past medical history significant for HFpEF, atrial flutter on Eliquis, hypertension, hx of bladder cancer, hx of tongue cancer, CAD, hyperlipidemia, hypothyroidism, DM2 who presented to the emergency department with complaints of ongoing weakness and generalized abdominal pain. The patient states he was recently away on a business trip over the past week and throughout the trip he overall felt unwell. He states he had no appetite and did feel nauseous on and off without any vomiting. His abdominal pain has progressively gotten worse and states it is all in his lower abdomen. He also admits to intermittent fevers along with increased shortness of breath and a dry cough. When asked if the patient has ever had any symptoms like this previously he states that around a month ago he had lower abdominal pain similar to this, however he was taking Ibuprofen and Tylenol and eventually the pain did subside. The patient is still passing gas and his last bowel movement was yeste rday and he denies any changes in his bowels. The patient's last colonoscopy was in May and he was noted to have polyps along with diverticulosis. The patient states that today he had increasing weakness and did sustain a fall which ultimately brought him into the emergency department. The patient was worked up and was found to have CT findings concerning for diverticulitis with perforation and small amount of fluid. The patient was seen and evaluated this evening at bedside. He is resting comfortably in bed, VSS, and is nontoxic appearing. The patient on exam does have tenderness in his lower abdominal region however has no signs of peritonitis. The patient states that he has never had any previous abdominal surgeries. Allergies Allergy/AdvReac Type Severity Reaction Status Date / Time No Known Allergies Allergy Verified 02/19/25 19:58 Home Medications Medication Instructions Recorded Confirmed Type calcium 600 mg (as 1 tab PO QAM 04/10/21 02/19/25 History carbonate)-vitamin D3 5 mcg (200 unit) tablet coenzyme Q10 100 mg capsule 100 mg PO QAM 04/10/21 02/19/25 History (CoQ-10) desoximetasone 0.25 % topical cream 1 applic topical BID PRN rash #15 07/26/23 02/19/25 Rx grams apixaban 5 mg tablet (Eliquis) 5 mg PO BID #180 tabs 05/04/24 02/19/25 Rx tamsulosin 0.4 mg capsule 0.4 mg PO HS 05/19/24 02/19/25 History atorvastatin 80 mg tablet 80 mg PO HS #90 tabs 07/08/24 02/19/25 Rx epinephrine 0.3 mg/0.3 mL 0.3 mg (0.3 mL) IM Q10M PRN 07/08/24 02/19/25 Rx injection, auto-injector (EpiPen anaphylaxis #2 ea 2-Prabhu) finasteride 5 mg tablet 5 mg PO HS #90 tabs 01/06/25 02/19/25 Rx furosemide 80 mg tablet 80 mg PO QAM #90 tabs 02/11/25 02/19/25 Rx zolpidem 6.25 mg tablet,extended 6.25 mg PO HS SLEEP #90 tabs 02/17/25 02/19/25 Rx release,multiphase betamethasone dipropionate 0.05 % 1 applic topical DAILY PRN ITCHY 02/19/25 02/19/25 History lotion SCALP cholecalciferol (vitamin D3) 25 25 mcg PO DAILY 02/19/25 02/19/25 History mcg (1,000 unit) capsule (Vitamin D3) levothyroxine 75 mcg tablet 75 mcg PO DAILYBB 02/19/25 02/19/25 History omega-3 fatty acids 1,000 mg 1,000 mg PO QAM 02/19/25 02/19/25 History capsule zinc gluconate 50 mg tablet 50 mg PO DAILY 02/19/25 02/19/25 History Patient History Medical History 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 S/p radiation & chemotherapy. H/O diverticulitis of colon Diverticulosis Hematuria Hx of bladder cancer dx 2003, sx tx Hx of renal calculi BPH (benign prostatic hyperplasia) Myocardial Infarction (~1978) no intervention at that time. 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 follows with [facility] Carotid stenosis Surgical History S/P cystoscopy with ureteral stent placement w/stone basketing History of cataract surgery rt/lt History of open reduction and internal fixation (ORIF) procedure Right femur Status post Mohs surgery History of cardiac cath "at least 6-7 years ago, unsure why he had to have them done," [facility], x2 with no stents; f/u dr. dumont, [place] History of carotid endarterectomy 09/2015, Left History of tonsillectomy History of surgery on wrist (~1974) History of cystoscopy 2003, with TURBT>had redone at [facility] History of colonoscopy History of prostate biopsy Family History Other Family history not known due to adoption Social History Smoking Status: Former smoker Tobacco Type: Cigarettes Age Started Using Tobacco: 22; Age Quit Using Tobacco: 51; packs per day: 1; Second Hand Exposure: Yes (hx); Do You Dip or Chew Tobacco: No; Hx Alcohol Use: Yes Alcohol type: beer and wine Alcohol Intake Frequency: 4 or More x per/Week Hx Substance Use: No Preferred Language: [place] Communication Ability: Effective Visual Impairment: Limited Hearing Ability: Use of Hearing Aid Grants Director Required: No Beliefs That Will Affect Care: None marital status: Current Living Situation: Spouse current occupational status: employed current occupation: [employer] How many Children do You have: 2 Feels Safe at Home: Yes Childhood Exposure to Second-Hand Smoke: No caffeine: Yes (coffee) Dental Care, Regularly: Yes Physical Activity Frequency: 3-4 Times per Week Physical Activity Frequency Comment: does a lot of yardwork in the summer time Seatbelt Use: always Sunscreen Use: No Assistive Devices: None Review of Systems Constitutional: + fever and + weakness; no chills and no body aches Respiratory: + cough; no pain on inspiration and no w heezing Cardiovascular: no chest pain and no palpitations Gastrointestinal: + abdominal pain and + nausea; no vomiti ng Physical Exam Constitutional: WD/WN, vitals as above Respiratory: normal respiratory effort, lungs clear to auscultation Cardiovascular: Rate/Rhythm: regular rate Gastrointestinal (Abdomen): Abdomen soft, nondistended, +TTP in the lower abdominal/pelvic region without rebound, guarding or signs of peritonitis. +Umbilical hernia appreciated that is re ducible and nontender Skin: no rashes, warm and dry Results & Data Vital Signs (Past 12 Hours) Vital Signs Temp Pulse Pulse Resp BP BP Pulse Ox 02/19/25 20:13 57 L 02/19/25 18:00 65 20 98/58 L 94 02/19/25 17:15 37.2 C 02/19/25 16:29 86 02/19/25 16:14 83 22 93 02/19/25 16:08 81 22 113/81 93 02/19/25 16:08 87 L 02/19/25 15:49 39.5 C H 85 18 116/71 90 O2 Del Method O2 Flow Rate 02/19/25 20:13 02/19/25 18:00 Nasal Cannula 2 02/19/25 17:15 02/19/25 16:29 02/19/25 16:14 Nasal Cannula 2 02/19/25 16:08 Nasal Cannula 2 02/19/25 16:08 Room Air, Nasal Cannula 02/19/25 15:49 Room Air Diagnostic Findings EXAM: CT abd pelvis IV con only CLINICAL HISTORY: Abdominal pain, constipation, fever, hypoxia TECHNIQUE: CT of the abdomen and pelvis was performed with contrast, with the following protocol: axial images with, and reconstructed coronal and sagittal images. One of the following dose reduction techniques was utilized for this exam: Automated exposure control, adjustment of the mA and/or kV according to patient size, and use of iterative reconstruction. DLP: 1271.76 mGy-cm, CTDI: 25.4 mGy. COMPARISON: CT abdomen on 06/24/2024. FINDINGS: Abdomen: Liver: Normal in size, shape, and density. No focal lesions, cysts, or masses were identified. Gallbladder and Biliary System: Multiple hyperdense gallbladder stones are noted . Pancreas: Pancreatic head, body, and tail are visualized and appear normal in size and density. No pancreatic masses or calcifications were noted. Spleen: Normal in size, shape, and density. No splenic lesions or masses were identified. Splenic calcific fluid are noted likely granulomatous. Kidneys and Adrenal Glands: Averages sized both kidneys. The right kidney shows areas of parenchymal scarring with small middle and lower calyceal stones measuring 2 mm and 5 mm. Few left renal cortical cysts measuring up to 7.5 X 6 cm (Bosniak type I ). No renal hydronephrosis. Adrenal glands are unremarkable. Abdominal Aorta and Vessels: Atheromatous calcifications of the aorta and both iliac vessels. Pelvis: Diffuse urinary bladder wall thickening with a small diverticulum in the anterior wall likely due to chronic outflow obstruction. Moderately enlarged prostate. Indenting the urinary bladder base. no definite focal lesions. Seminal Vesicles: Normal appearance without abnormal enlargement or mass. Peritoneal and Retroperitoneal Structures: No lymphadenopathy was noted. Bilateral spermatic cord lipomatosis, larger on the left side. 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 Minimal ascites. Bowel: Diverticular disease of the colon with marked Fat smudging, soft tissue thickening, and minimal fluid seen surrounding the sigmoid colon with regional mesenteric and upper abdominal free air densities likely due to colonic wall perforation. No evidence of bowel obstruction. 2.9 x 1.3 cm oval-shaped fatty lesion with hyperattenuating rim near the descending colon, suggest epiploic appendagitis. (new) Bones and Soft Tissues: Internal fixation of the right hip by dynamic hip screw. Scanned lower chest cuts show bilateral basal atelectatic bands and cardiomegaly. Hiatal hernia is noted. IMPRESSION: 1. Diverticular disease of the colon. 2. Newly noted marked Fat smudging, soft tissue thickening, and minimal fluid seen surrounding the sigmoid colon with regional mesenteric and upper abdominal free air densities likely due to colonic wall perforation. (new) 3. Minimal ascites. (newly noted). 4. 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 (stable) 5. 2.9 x 1.3 cm oval-shaped fatty lesion with hyperattenuating rim near the descending colon, suggest epiploic appendagitis. (new) 6. Cholelithiasis. 7. The rest of the study is unchanged since the last study as detailed above. PG Care Time/CCT Total # of Minutes Spent Total Time Spent with Patient: Total time spent is greater than 50% in coordination of care (as documented) at patient's floor/unit and/or counseling patient: [place] [address] INT INP/OBS CARE 1/40MIN Patient Type New Medical Decision Making Straight Forward Diagnoses Diverticulitis of colon with perforation K57.20
--- NOTE | 2025-02-19 21:10 | History & Physical Report ---
Date of Service February 19, 2025 Assessment & Plan (1) Diverticulitis of colon with perforation: (2) Coronary artery disease: (3) Atrial flutter: (4) (HFpEF) heart failure with preserved ejection fraction: Plan 89 year old male presents to the ER with shortness of breath, abdominal pain and fevers. #Diverticulitis with colon perforation IV Zosyn, NPO, IV fluids Consult general surgery #Chronic HFpEF Monitor closely for fluid overload with IV fluids Hold furosemide #Atrial flutter/fibrillation / elevated troponin Persistent / permanent Per last cardiology note EKGs consistent with flutter however intracardiac electrograms were consistent with an atrial fibrillation, rate controlled not on AV genesis blocking agents Holding Eliquis in case of need for surgery No chest pain to suggest ACS, elevated tropoin consistent with demand-ischemia, repeat level with AM labs VTE Prophylaxis - Eliquis on hold in case for need for surgery, SCDs Disposition - admit to PCU Admission and Anticipated Discharge Date Admission Date: February 20, 2025 History of Present Illness Chief Complaint: Fever Abdominal pain Primary Care Provider: Kanwal Zavala MD Dm Ferreira is an 89 year old male who presents to the ER with fevers and abdominal pain. He reports 3 months of ambulatory dysfunction, shortness of breath on exertion and intermittent lower abdominal pain during this time. For the last week the abdominal pain has been more constant, no radiation, current severity 5-6/10 but at worst 10/10. Associated decreased appetite and hardly ate anything with decreased bowel movements. Also associated fever highest 103.1 degrees Farenheit. He reports not taking his lasix for the last 3 days in addition as he has been travelling and returned from [facility] yesterday. No chest pain. He reports having a heart attack in 1978 but medically managed and per last cardiology note he has nonobstructive coronary disease in the LAD and left main with chronic total occlusion of the right coronary artery. Of note he had planned to have atrial fibrillation/flutter ablation at [place] next week. In the ER CT abdomen/pelvis was concerning for diverticulitis with colon perforation. He was seen by general surgery with plans to conservatively treat currently. He last took Eliquis yesterday around 9pm. I updated his over the phone. Allergies Allergy/AdvReac Type Severity Reaction Status Date / Time No Known Allergies Allergy Verified 02/19/25 19:58 Home Medications Medication Instructions Recorded Confirmed Type calcium 600 mg (as 1 tab PO QAM 04/10/21 02/19/25 History carbonate)-vitamin D3 5 mcg (200 unit) tablet coenzyme Q10 100 mg capsule 100 mg PO QAM 04/10/21 02/19/25 History (CoQ-10) desoximetasone 0.25 % topical cream 1 applic topical BID PRN rash #15 07/26/23 02/19/25 Rx grams apixaban 5 mg tablet (Eliquis) 5 mg PO BID #180 tabs 05/04/24 02/19/25 Rx tamsulosin 0.4 mg capsule 0.4 mg PO HS 05/19/24 02/19/25 History atorvastatin 80 mg tablet 80 mg PO HS #90 tabs 07/08/24 02/19/25 Rx epinephrine 0.3 mg/0.3 mL 0.3 mg (0.3 mL) IM Q10M PRN 07/08/24 02/19/25 Rx injection, auto-injector (EpiPen anaphylaxis #2 ea 2-Prabhu) finasteride 5 mg tablet 5 mg PO HS #90 tabs 01/06/25 02/19/25 Rx furosemide 80 mg tablet 80 mg PO QAM #90 tabs 02/11/25 02/19/25 Rx zolpidem 6.25 mg tablet,extended 6.25 mg PO HS SLEEP #90 tabs 02/17/25 02/19/25 Rx release,multiphase betamethasone dipropionate 0.05 % 1 applic topical DAILY PRN ITCHY 02/19/25 02/19/25 History lotion SCALP cholecalciferol (vitamin D3) 25 25 mcg PO DAILY 02/19/25 02/19/25 History mcg (1,000 unit) capsule (Vitamin D3) levothyroxine 75 mcg tablet 75 mcg PO DAILYBB 02/19/25 02/19/25 History omega-3 fatty acids 1,000 mg 1,000 mg PO QAM 02/19/25 02/19/25 History capsule zinc gluconate 50 mg tablet 50 mg PO DAILY 02/19/25 02/19/25 History Past Med/Surg History Problem List (Updated 02/20/25 @ 03:25 by Santiago Kemp MD) Elevated troponin (Acute) Diverticulitis of colon with perforation (Acute) Type 2 diabetes mellitus with obesity Coronary artery disease (Acute) 40% left main, 60% proximal LAD, chronic total occlusion of the right coronary artery on catheterization 2006. 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 S/p radiation & chemotherapy. H/O diverticulitis of colon Diverticulosis Hematuria Hx of bladder cancer dx 2003, sx tx Hx of renal calculi BPH (benign prostatic hyperplasia) Myocardial Infarction (~1978) no intervention at that time. 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 follows with [facility] [place] Carotid stenosis Surgical History S/P cystoscopy with ureteral stent placement w/stone basketing History of cataract surgery rt/lt History of open reduction and internal fixation (ORIF) procedure Right femur Status post Mohs surgery History of cardiac cath "at least 6-7 years ago, unsure why he had to have them done," [facility] [place], x2 with no stents; f/u dr. dumont, [place] History of carotid endarterectomy 09/2015, Left History of tonsillectomy History of surgery on wrist (~1974) History of cystoscopy 2003, with TURBT>had redone at [facility] History of colonoscopy History of prostate biopsy Family History Other Family history not known due to adoption Social History Smoking Status: Never smoker Tobacco Type: Cigarettes Age Started Using Tobacco: 22; Age Quit Using Tobacco: 51; packs per day: 1; Second Hand Exposure: No; Do You Dip or Chew Tobacco: No; Tobacco Cessation Education Requested by Patient: No Hx Alcohol Use: Yes Alcohol type: beer and wine Alcohol Intake Frequency: 4 or More x per/Week Hx Substance Use: No Preferred Language: [place] Communication Ability: Effective Visual Impairment: Limited Hearing Ability: Use of Hearing Aid Guest Services Ambassador Required: No Beliefs That Will Affect Care: None marital status: Current Living Situation: Spouse Current Living Situation Comment: Lives at home with current occupational status: employed current occupation: [employer] How many Children do You have: 2 Other Information That Helps Us Care for You: No Feels Safe at Home: Yes Childhood Exposure to Second-Hand Smoke: No caffeine: Yes (coffee) Dental Care, Regularly: Yes Physical Activity Frequency: 3-4 Times per Week Physical Activity Frequency Comment: does a lot of yardwork in the summer time Seatbelt Use: always Sunscreen Use: No Assistive Devices: Glasses and Hearing Aid - Bilateral Assistive Devices Comment: upper dental retainer Review of Systems Review of Systems: All systems reviewed & are unremarkable except as noted in HPI & below Physical Exam Constitutional: WD/WN, vitals as above Neck: Well healed submandibular surgical scar Respiratory: normal respiratory effort, lungs clear to auscultation Cardiovascular: Rate/Rhythm: regular rate and + irregularly irregular Heart Sounds: no murmur Extremities: normal capillary refill and + pedal edema (trace b/l equal) Gastrointestinal (Abdomen): Inspection/Auscultation: abdomen normal to inspection and + abdomen distended Percussion/Palpation: + abdomen tender (most lower suprapubic), + guarding (without rebound tenderness) and abdomen soft Musculoskeletal: no cyanosis or clubbing, extremities motor strength 5/5 Skin: no rashes, warm and dry Neurologic: moves all extremities and awake; not confused Psychiatric: A+Ox3, euthymic affect Results & Data Results & Data Vital Signs (Past 12 Hours) Vital Signs Temp Pulse Pulse Resp BP BP Pulse Ox 02/19/25 20:13 57 L 02/19/25 18:00 65 20 98/58 L 94 02/19/25 17:15 37.2 C 02/19/25 16:29 86 02/19/25 16:14 83 22 93 02/19/25 16:08 81 22 113/81 93 02/19/25 16:08 87 L 02/19/25 15:49 39.5 C H 85 18 116/71 90 O2 Del Method O2 Flow Rate 02/19/25 20:13 02/19/25 18:00 Nasal Cannula 2 02/19/25 17:15 02/19/25 16:29 02/19/25 16:14 Nasal Cannula 2 02/19/25 16:08 Nasal Cannula 2 02/19/25 16:08 Room Air, Nasal Cannula 02/19/25 15:49 Room Air Laboratory Results Abnormal lab results 02/19/25 02/19/25 02/19/25 Range/Units 16:15 18:37 19:10 Hgb 11.4 L (14.0-18.0) g/dl Hct 38.0 L (42.0-52.0) % MCV 75.2 L (80.0-100.0) fL MCH 22.6 L (25.0-34.0) pg MCHC 30.0 L (32.0-36.0) g/dL RDW Std Deviation 51.0 H (36.4-46.3) fL RDW Coeff of Kay 19.7 H (11.5-14.5) % Neut # (Auto) 8.56 H (1.40-6.50) K/uL Lymph # (Auto) 0.74 L (1.20-3.40) K/uL [place] # (Auto) 0.70 H (0.11-0.59) K/uL PT 14.5 H (9.0-12.0) Seconds INR 1.4 H (0.9-1.1) Sodium 135 L (136-145) mmol/L BUN 36 H (6-23) mg/dl BUN/Creatinine Ratio 28.3 H (10-20) Glucose 179 H (70-99(Fasting)) mg/dl Magnesium 1.6 L (1.7-2.4) mg/dl Total Bilirubin 1.3 H (0.2-1.0) mg/dl Alkaline Phosphatase 253 H (34-104) U/L Troponin I High Sens 146.1 H* (0-20) pg/ml Ur Specific [place] 1.041 H (1.000-1.030) Urine Protein 2+ H (Negative) Urine Ketones Trace H (Negative) Diagnostic Findings CXR Technique: A frontal view of the chest was obtained Comparison is made to the prior examination dated 04/05/2024 Findings: There is suspected mild pulmonary edema. There is unchanged cardiomegaly. No pleural effusion or pneumothorax is seen. No fracture is noted. No foreign body is seen Impression: Cardiomegaly and suspected mild pulmonary edema CT abd pelvis IV con only CLINICAL HISTORY: Abdominal pain, constipation, fever, hypoxia TECHNIQUE: CT of the abdomen and pelvis was performed with contrast, with the following protocol: axial images with, and reconstructed coronal and sagittal images. One of the following dose reduction techniques was utilized for this exam: Automated exposure control, adjustment of the mA and/or kV according to patient size, and use of iterative reconstruction. DLP: 1271.76 mGy-cm, CTDI: 25.4 mGy. COMPARISON: CT abdomen on 06/24/2024. FINDINGS: Abdomen: Liver: Normal in size, shape, and density. No focal lesions, cysts, or masses were identified. Gallbladder and Biliary System: Multiple hyperdense gallbladder stones are noted . Pancreas: Pancreatic head, body, and tail are visualized and appear normal in size and density. No pancreatic masses or calcifications were noted. Spleen: Normal in size, shape, and density. No splenic lesions or masses were identified. Splenic calcific fluid are noted likely granulomatous. Kidneys and Adrenal Glands: Averages sized both kidneys. The right kidney shows areas of parenchymal scarring with small middle and lower calyceal stones measuring 2 mm and 5 mm. Few left renal cortical cysts measuring up to 7.5 X 6 cm (Bosniak type I ). No renal hydronephrosis. Adrenal glands are unremarkable. Abdominal Aorta and Vessels: Atheromatous calcifications of the aorta and both iliac vessels. Pelvis: Diffuse urinary bladder wall thickening with a small diverticulum in the anterior wall likely due to chronic outflow obstruction. Moderately enlarged prostate. Indenting the urinary bladder base. no definite focal lesions. Seminal Vesicles: Normal appearance without abnormal enlargement or mass. Peritoneal and Retroperitoneal Structures: No lymphadenopathy was noted. Bilateral spermatic cord lipomatosis, larger on the left side. 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 Minimal ascites. Bowel: Diverticular disease of the colon with marked Fat smudging, soft tissue thickening, and minimal fluid seen surrounding the sigmoid colon with regional mesenteric and upper abdominal free air densities likely due to colonic wall perforation. No evidence of bowel obstruction. 2.9 x 1.3 cm oval-shaped fatty lesion with hyperattenuating rim near the descending colon, suggest epiploic appendagitis. (new) Bones and Soft Tissues: Internal fixation of the right hip by dynamic hip screw. Scanned lower chest cuts show bilateral basal atelectatic bands and cardiomegaly. Hiatal hernia is noted. IMPRESSION: 1. Diverticular disease of the colon. 2. Newly noted marked Fat smudging, soft tissue thickening, and minimal fluid seen surrounding the sigmoid colon with regional mesenteric and upper abdominal free air densities likely due to colonic wall perforation. (new) 3. Minimal ascites. (newly noted). 4. 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 (stable) 5. 2.9 x 1.3 cm oval-shaped fatty lesion with hyperattenuating rim near the descending colon, suggest epiploic appendagitis. (new) 6. Cholelithiasis. 7. The rest of the study is unchanged since the last study as detailed above. Medications Administered ER medications given: Acetaminophen 1000 mg IV Normal saline 500 mL bolus Magnesium sulfate 1 g IV Ceftriaxone 2000 mg IV Normal saline 1000 mL bolus Zosyn 4.5 g IV ECG Rate (beats per minute): 89 Rhythm: atrial flutter (variable block) Findings: + nonspecific-ST abn (Lateral) Comparison ECG Date: from (Jul 14, 2024) Change: the following changes noted (Atrial flutter replaced fibrillation) Code Status & VTE Plan Code Status DNR/DNI VTE Prophylaxis Plan VTE Prophylaxis will be ordered: No PG Care Time/CCT Total # of Minutes Spent Total Time Spent with Patient: Total time spent is greater than 50% in coordination of care (as documented) at patient's floor/unit and/or counseling patient: Coding Level of Care Code 11681 INT INP/OBS CARE MIN Diagnoses Diverticulitis of colon with perforation K57.20 Coronary artery disease I25.10 Atrial flutter I48.92 (HFpEF) heart failure with preserved ejection fraction I50.30
[2025-02-19] MEDS ORDERED: PIPERACILLIN/TAZOBACTAM 4.5 GM/100 ML BAG IV ONE (22:45)
[2025-02-19] MEDS: LACTATED RINGER'S 1,000 ML IV SCH (22:54)
--- NOTE | 2025-02-19 22:55 | Electrocardiogram Report ---
Test Reason : Blood Pressure : */* mmHG Vent. Rate : 89 BPM Atrial Rate : 241 BPM P-R Int : * ms QRS Dur : 100 ms QT Int : 372 ms P-R-T Axes : * 5 234 degrees QTcB Int : 452 ms Atrial flutter with variable A-V block Left ventricular hypertrophy ST abnormality consider lateral ischemia. Abnormal ECG When compared with ECG of 16-Jul-2024 10:10, Atrial flutter has replaced Atrial fibrillation Confirmed by Roberto Mathur ([id number]) on 02/19/2025 10:54:53 PM Referred By: Confirmed By: Roberto Mathur
[2025-02-19] MEDS: FINASTERIDE 5 MG TAB PO SCH (23:30)
[2025-02-19] MEDS: ZOLPIDEM TARTRATE 5 MG TAB PO PRN (23:30)
[2025-02-19] MEDS: TAMSULOSIN HCL 0.4 MG CAP PO SCH (23:30)
[2025-02-20] MEDS: PIPERACILLIN/TAZOBACTAM 4.5 GM/100 ML BAG IV SCH (01:59)
[2025-02-20] MEDS ORDERED: PIPERACILLIN/TAZOBACTAM 4.5 GM/100 ML BAG IV SCH (04:00)
[2025-02-20] MEDS: LEVOTHYROXINE SODIUM 75 MCG TABLET PO SCH (05:27)
[2025-02-20 06:03] LABS: Basophils # (auto) 0.03 K/uL (0.00-0.20); Basophils % (auto) 0.3 %; Eosinophils # (auto) 0.06 K/uL (0.00-0.50); Eosinophils % (auto) 0.6 %; Hematocrit (blood only) 37.7 % (42.0-52.0); Hemoglobin 10.9 g/dl (14.0-18.0); Immature Granulocytes # (auto) 0.04 K/uL (0.01-0.20); Immature Granulocytes % (auto) 0.4 %; Lymphocytes # (auto) 1.07 K/uL (1.20-3.40); Lymphocytes % (auto) 10.8 %; Mean Corpuscular Hemoglobin 22.3 pg (25.0-34.0); Mean Corpuscular Hgb Conc 28.9 g/dL (32.0-36.0); Mean Corpuscular Volume 77.3 fL (80.0-100.0); Mean Platelet Volume 9.5 fL (9.4-12.4); Monocytes # (auto) 0.78 K/uL (0.11-0.59); Monocytes % (auto) 7.8 %; Neutrophils # (auto) 7.96 K/uL (1.40-6.50); Neutrophils % (auto) 80.1 %; Platelet Count 196 K/uL (130-400); RDW Coefficient of Variation 19.2 % (11.5-14.5); RDW Standard Deviation 52.5 fL (36.4-46.3); Red Blood Count 4.88 M/uL (4.70-6.10); White Blood Count 9.94 K/ul (4.8-10.8)
[2025-02-20 06:20] LABS: Albumin Globulin Ratio 0.9 (0.9-2); Albumin Level 3.1 gm/dl (3.4-5.0); BUN Creatinine Ratio 21.1 (10-20); Bilirubin,Total 1.5 mg/dl (0.2-1.0); Calcium 8.5 mg/dl (8.6-10.3); Creatinine Clr Calc Pharmacy 44.2 ml/min; Globulin 3.4 gm/dl (2.5-4.0); Total Protein 6.5 gm/dl (6.0-8.3)
[2025-02-20 06:28] LABS: Troponin I High Sensitivity 114.2 pg/ml (0-20)
[2025-02-20 06:38] LABS: INR 1.4 (0.9-1.1); Prothrombin Time 14.3 Seconds (9.0-12.0)
[2025-02-20] MEDS ORDERED: MoRPHine SULFATE 2 MG/ML CARP IV PRN (06:45)
[2025-02-20] MEDS ORDERED: ACETAMINOPHEN 1,000 MG/100 ML VIAL IV PRN (06:45)
[2025-02-20] MEDS ORDERED: MoRPHine SULFATE 4 MG/ML 1 ML CARP\\VIAL IV PRN (06:45)
--- NOTE | 2025-02-20 06:50 | Surgery Progress Note ---
Date of Service February 20, 2025 Assessment & Plan (1) Diverticulitis of colon with perforation: Plan: -Will continue to treat conservatively for now. Patient still having lower abdominal pain that is worse with movement and palpation however has not worsened. -Continue to keep NPO for now, continue IV hydration, and continue broad spectrum antibiotics with Zosyn -Trend WBC and temps -Serial abdominal exams -Continue to hold Eliquis for now -Medical management per primary team, surgery will continue to follow closely Admission and Anticipated Discharge Date Admission Date: February 19, 2025 Supervising Physician Co-Signing Physician Notes pnt S&E, agree with above. intermittent pain, feeling slightly better. abd soft, ttp in b/l lq's, no guarding. wbc normalized. continue npo for 24 hours bowel rest, potential clears tomorrow if doing well. Subjective Patient seen and evaluated this morning. States he does have some abdominal pain with movement and palpation but otherwise pain has been controlled overnight Afebrile, VSS, and WBC this morning is 9 Denies any nausea or vomiting overnight Physical Exam Constitutional: WD/WN, vitals as above Respiratory: normal respiratory effort, lungs clear to auscultation Cardiovascular: Rate/Rhythm: regular rate Gastrointestinal (Abdomen): Abdomen soft, nondistended, +moderate TTP in the lower abdomen/pelvic region. Skin: no rashes, warm and dry Results & Data Vital Signs (Past 12 Hours) Vital Signs Temp Pulse Pulse Pulse Resp BP BP 02/20/25 05:33 02/20/25 03:52 36.8 C 77 16 136/77 02/19/25 22:30 02/19/25 22:30 36.4 C L 77 17 130/76 02/19/25 22:25 36.4 C L 77 17 130/76 02/19/25 22:03 61 19 115/67 02/19/25 21:00 61 18 122/73 02/19/25 20:13 57 L 02/19/25 20:00 60 18 02/19/25 19:00 61 17 Pulse Ox O2 Del Method O2 Flow Rate 02/20/25 05:33 95 Nasal Cannula 2 02/20/25 03:52 98 Nasal Cannula 3 02/19/25 22:30 Nasal Cannula 3 02/19/25 22:30 97 Nasal Cannula 3 02/19/25 22:25 97 Nasal Cannula 3 02/19/25 22:03 96 Nasal Cannula 3 02/19/25 21:00 96 Room Air 02/19/25 20:13 02/19/25 20:00 96 Room Air 02/19/25 19:00 95 Room Air PG Care Time/CCT Total # of Minutes Spent Total Time Spent with Patient: Total time spent is greater than 50% in coordination of care (as documented) at patient's floor/unit and/or counseling patient: Coding [place] [address] SUB INP/OBS CARE 11/14MIN Patient Type Established Medical Decision Making Straight Forward Diagnoses Diverticulitis of colon with perforation K57.20
--- NOTE | 2025-02-20 09:29 | Hospitalist Progress Note ---
Date of Service February 20, 2025 Assessment & Plan (1) Diverticulitis of colon with perforation: (2) Coronary artery disease: (3) Atrial flutter: (4) (HFpEF) heart failure with preserved ejection fraction: Plan 89 yo M with PMHx of HTN, HLD, Hypothyrodism, CAD, HFpEF, AFlutter presents to the ER with shortness of breath, abdominal pain and fevers. #Diverticulitis with colon perforation - IV Zosyn, NPO, IV fluids - Gen surgery on board, recs conservative management #Chronic HFpEF - Monitor closely for fluid overload with IV fluids - Hold furosemide #Atrial flutter/fibrillation / elevated troponin - Persistent / permanent - Per last cardiology note EKGs consistent with flutter however intracardiac electrograms were consistent with an atrial fibrillation, rate controlled not on AV genesis blocking agents - Holding Eliquis in case of need for surgery - No chest pain to suggest ACS, elevated troponin consistent with demand- ischemia, repeat level with AM labs #HLD - cont atorvastatin #Hypothyroidism - cont levothyroxine #BPH - cont tamsulosin and finasteride VTE Prophylaxis - Eliquis on hold in case for need for surgery, SCDs Disposition - pending clinical improvement Admission and Anticipated Discharge Date Admission Date: February 19, 2025 Subjective No acute events overnight Currently, no new complaints. Stated he had some nausea this morning that subsided without intervention. He is having abdominal pain but mostly when moving or manipulating the abdomen through palpation. Otherwise he feels comfortable. He denies fever , chills. Review of Systems Review of Systems: Comprehensive ROS negative. Physical Exam Physical Exam: Gen: no acute distress, sitting in bedside chair, very warm to touch HEENT: NC/AT, anicteric, MMM Lungs: CTAB CVS: s1s2nl, II/ QUETA Abd: soft, TTP in the lower quadrants, active bowel sounds : no albright Ext: no edema Neuro: awake, alert Psych: calm, cooperative Results & Data Results & Data Vital Signs (Past 12 Hours) Vital Signs Temp Pulse Pulse Resp BP BP Pulse Ox 02/20/25 07:23 37.1 C 80 17 113/68 94 02/20/25 07:00 78 02/20/25 05:33 95 02/20/25 03:52 36.8 C 77 16 136/77 98 02/19/25 22:30 02/19/25 22:30 36.4 C L 77 17 130/76 97 02/19/25 22:25 36.4 C L 77 17 130/76 97 02/19/25 22:03 61 19 115/67 96 O2 Del Method O2 Flow Rate 02/20/25 07:23 Nasal Cannula 2 02/20/25 07:00 02/20/25 05:33 Nasal Cannula 2 02/20/25 03:52 Nasal Cannula 3 02/19/25 22:30 Nasal Cannula 3 02/19/25 22:30 Nasal Cannula 3 02/19/25 22:25 Nasal Cannula 3 02/19/25 22:03 Nasal Cannula 3 PG Care Time/CCT Total # of Minutes Spent Total Time Spent with Patient: Total time spent is greater than 50% in coordination of care (as documented) at patient's floor/unit and/or counseling patient: Coding Level of Care Code 99011 SUB INP/OBS CARE MIN Diagnoses Diverticulitis of colon with perforation K57.20 Coronary artery disease I25.10 Associated angina: unspecified whether angina present Coronary Disease-Associated Artery/Lesion type: unspecified vessel or lesion type [place] vs. transplanted heart: [place] heart Atrial flutter I48.92 Atrial flutter type: unspecified (HFpEF) heart failure with preserved ejection fraction I50.32 Heart failure chronicity: chronic (2) Coronary artery disease Associated angina: unspecified whether angina present Coronary Disease- Associated Artery/Lesion type: unspecified vessel or lesion type [place] vs. transplanted heart: [place] heart Qualified Code(s): I25.10 - Atherosclerotic heart disease of [place] coronary artery without angina pectoris (3) Atrial flutter Atrial flutter type: unspecified Qualified Code(s): I48.92 - Unspecified atrial flutter (4) (HFpEF) heart failure with preserved ejection fraction Heart failure chronicity: chronic Qualified Code(s): I50.32 - Chronic diastolic (congestive) heart failure
[2025-02-20 14:27] LABS: A calco-baum cmplx NotReported Not Detected (NotDetected); Bact fragilis Not Reported Not Detected (NotDetected); Blood Culture Id Panel See PCR Comment (NotDetected); C auris Not Reported Not Detected (NotDetected); CTX-M Resistant Gene Not Detected (NotDetected); Calbicans Not Reported Not Detected (NotDetected); Candida glabrata Not Reported Not Detected (NotDetected); Candida krusei Not Reported Not Detected (NotDetected); Cneoformans/gatti Not Reported Not Detected (NotDetected); Cparapsilosis Not Reported Not Detected (NotDetected); Ctropicalis Not Reported Not Detected (NotDetected); E cloacae compx Not Reported Not Detected (NotDetected); Efaecalis Not Reported Not Detected (NotDetected); Efaecium Not Reported Not Detected (NotDetected); Enterobacterales Not Reported DETECTED (NotDetected); Escherichia coli Not Reported DETECTED (NotDetected); H influenzae Not Reported Not Detected (NotDetected); IMP Resistant Gene Not Detected (NotDetected); K aerogenes Not Reported Not Detected (NotDetected); KPC Resistant Gene Not Detected (NotDetected); Koxytoca Not Reported Not Detected (NotDetected); Kpneumoniae grp Not Reported Not Detected (NotDetected); Lmonocyt Not Reported Not Detected (NotDetected); N meningitidis Not Reported Not Detected (NotDetected); NDM Resistant Gene Not Detected (NotDetected); OXA 48 Like Resistant Gene Not Detected (NotDetected); P aeruginosa Not Reported Not Detected (NotDetected); Proteus spp Not Reported Not Detected (NotDetected); Salmonella spp Not Reported Not Detected (NotDetected); Staph lugdunensis Not Reported Not Detected (NotDetected); Staph spp. Not Reported Not Detected (NotDetected); Staphaureus Not Reported Not Detected (NotDetected); Staphepi Not Reported Not Detected (NotDetected); Stenmaltophilia Not Reported Not Detected (NotDetected); Strep agal(GrpB) Not Reported Not Detected (NotDetected); Strep pneum Not Reported Not Detected (NotDetected); Strep pyog (GrpA) Not Reported Not Detected (NotDetected); Strep spp Not Reported Not Detected (NotDetected); VIM Resistant Gene Not Detected (NotDetected); mcr-1 Colistin Resistant Gene Not Detected (NotDetected)
[2025-02-20 14:40] LABS: Enterobacterales DETECTED (NotDetected)
[2025-02-20] MEDS: ONDANSETRON INJ 2 MG/ML 2 ML VIAL IV PRN (18:55)
[2025-02-20] MEDS: ATORVASTATIN 40 MG TAB PO SCH (20:05)
--- NOTE | 2025-02-21 03:21 | XRay Report ---
Exam(s): XR CXR 1 VIEW EXAM: XR Chest, 1 View CLINICAL HISTORY: Reason for exam: concern for fluid overload. TECHNIQUE: Frontal view of the chest. COMPARISON: Prior chest x-ray from the February 19, 2025 5. FINDINGS: Lungs: Mild peribronchial thickening of the central bronchi. No consolidation. Pleural space: Unremarkable. No pneumothorax. Heart: Moderate cardiomegaly. Mediastinum: Unremarkable. Normal mediastinal contour. Bones/joints: Unremarkable. No acute fracture. IMPRESSION: Findings concerning for bronchitis, which may be of infectious or inflammatory etiologies. No consolidation or pleural effusion. Cardiomegaly without evidence of CHF. Electronically signed by: Deanna Concepcion MD 02/21/25 03:20 AM
[2025-02-21 06:30] LABS: Hematocrit (blood only) 34.3 % (42.0-52.0); Hemoglobin 10.1 g/dl (14.0-18.0); Mean Corpuscular Hemoglobin 22.6 pg (25.0-34.0); Mean Corpuscular Hgb Conc 29.4 g/dL (32.0-36.0); Mean Corpuscular Volume 76.7 fL (80.0-100.0); Mean Platelet Volume 9.6 fL (9.4-12.4); Platelet Count 197 K/uL (130-400); RDW Coefficient of Variation 19.1 % (11.5-14.5); RDW Standard Deviation 52.1 fL (36.4-46.3); Red Blood Count 4.47 M/uL (4.70-6.10); White Blood Count 10.78 K/ul (4.8-10.8)
[2025-02-21 06:52] LABS: Calcium 8.2 mg/dl (8.6-10.3); Creatinine Clr Calc Pharmacy 46.9 ml/min; Magnesium 1.8 mg/dl (1.7-2.4); Phosphorus 3.2 mg/dl (2.5-4.9)
[2025-02-21 07:33] VITALS: RESP 18
--- NOTE | 2025-02-21 10:08 | Surgery Progress Note ---
Date of Service February 21, 2025 Assessment & Plan (1) Diverticulitis of colon with perforation: Plan: Feeling better, WBC and normal Continue IV antibiotics May have clear liquids Surgery will follow, call with questions or concerns Admission and Anticipated Discharge Date Admission Date: February 19, 2025 Subjective Diverticulitis with perforation but no abscess or free stool. Feeling better than yesterday, did require some oxygen overnight. Passing gas but no bowel movement. Physical Exam Constitutional: WD/WN, vitals as above Respiratory: normal respiratory effort, lungs clear to auscultation Cardiovascular: Rate/Rhythm: regular rate Gastrointestinal (Abdomen): Abdomen soft, nondistended, +moderate TTP in the lower abdomen/pelvic region. Skin: no rashes, warm and dry Results & Data Vital Signs (Past 12 Hours) Vital Signs Temp Pulse Resp BP Pulse Ox O2 Del Method O2 Flow Rate 02/21/25 07:30 36.5 C 78 18 118/73 93 Nasal Cannula 2 02/21/25 03:34 36.8 C 76 16 103/65 95 Nasal Cannula 2 02/21/25 00:38 Nasal Cannula 4 02/20/25 23:22 36.8 C 98 H 18 107/74 90 Nasal Cannula 6 Laboratory Results Laboratory Results - last 24 hr 02/19/25 02/21/25 16:15 06:07 WBC 10.78 RBC 4.47 L Hgb 10.1 L Hct 34.3 L MCV 76.7 L MCH 22.6 L MCHC 29.4 L RDW Std Deviation 52.1 H RDW Coeff of Kay 19.1 H Plt Count 197 MPV 9.6 Sodium 139 Potassium 4.0 Chloride 106 Carbon Dioxide 28 Anion Gap 5 BUN 22 Creatinine 1.16 Est Cr Clr Drug Dosing 46.9 eGFR 60.58 BUN/Creatinine Ratio 19.0 Glucose 145 H Calcium 8.2 L Phosphorus 3.2 Magnesium 1.8 Enterobacterales (PCR) DETECTED A E. coli (PCR) DETECTED A mcr-1 Colistin Res Gene PCR Not Detected blaIMP Car res Gene PCR Not Detected KPC-Carbap Res Gene PCR Not Detected blaNDM Car Res Gene PCR Not Detected OXA-48 Carbapenem Resis Gene (PCR) Not Detected blaVIM Car Res Gene PCR Not Detected CTX-M Gene Resistance (PCR) Not Detected Bld Cult ID Panel PCR See PCR Comment PG Care Time/CCT Total # of Minutes Spent Total Time Spent with Patient: Total time spent is greater than 50% in coordination of care (as documented) at patient's floor/unit and/or counseling patient: Coding Level of Care Code 90353 SUB INP/OBS CARE Diagnoses Diverticulitis of colon with perforation K57.20
--- NOTE | 2025-02-21 14:48 | Hospitalist Progress Note ---
Date of Service February 21, 2025 Assessment & Plan (1) Diverticulitis of colon with perforation: (2) Coronary artery disease: (3) Atrial flutter: (4) (HFpEF) heart failure with preserved ejection fraction: Plan 89 yo M with PMHx of HTN, HLD, Hypothyrodism, CAD, HFpEF, AFlutter presents to the ER with shortness of breath, abdominal pain and fevers. #Diverticulitis with colon perforation - cont IV Zosyn - on clear liquid diet - Gen surgery on board, recs conservative management #Ecoli bacteremia - 10/24 bottles positive - rpt cultures pending - cont zosyn (started on 02/20) #Chronic HFpEF - Monitor closely for fluid overload with IV fluids - Hold furosemide, if remains stable, resume furosemide on 02/22 #Atrial flutter/fibrillation / elevated troponin - Persistent / permanent - Per last cardiology note EKGs consistent with flutter however intracardiac electrograms were consistent with an atrial fibrillation, rate controlled not on AV genesis blocking agents - Holding Eliquis in case of need for surgery - No chest pain to suggest ACS, elevated troponin consistent with demand- ischemia, repeat level with AM labs #HLD - cont atorvastatin #Hypothyroidism - cont levothyroxine #BPH - cont tamsulosin and finasteride VTE Prophylaxis - Eliquis on hold in case for need for surgery, SCDs Disposition - pending clinical improvement Admission and Anticipated Discharge Date Admission Date: February 19, 2025 Subjective Fluids held due to increasing oxygen requirement Currently states that he is feeling better. Passing gas, but no BMs Pain improving Review of Systems Review of Systems: Comprehensive ROS negative. Physical Exam Physical Exam: Gen: no acute distress, sitting in bedside chair, very warm to touch HEENT: NC/AT, anicteric, MMM Lungs: CTAB CVS: [id number], II/ QUETA Abd: soft, active bowel sounds, very mild TTP to lower quadrants : no albright Ext: no edema Neuro: awake, alert Psych: calm, cooperative Results & Data Results & Data Vital Signs (Past 12 Hours) Vital Signs Temp Pulse Pulse Resp BP Pulse Ox O2 Del Method 02/21/25 11:13 36.5 C 65 65 18 112/68 96 Room Air 02/21/25 07:30 36.5 C 78 18 118/73 93 Nasal Cannula 02/21/25 03:34 36.8 C 76 16 103/65 95 Nasal Cannula O2 Flow Rate 02/21/25 11:13 02/21/25 07:30 2 02/21/25 03:34 2 PG Care Time/CCT Total # of Minutes Spent Total Time Spent with Patient: Total time spent is greater than 50% in coordination of care (as documented) at patient's floor/unit and/or counseling patient: Coding Level of Care Code 86612 SUB INP/OBS CARE Diagnoses Diverticulitis of colon with perforation K57.20 Coronary artery disease I25.10 Associated angina: unspecified whether angina present Coronary Disease-Associated Artery/Lesion type: unspecified vessel or lesion type [place] vs. transplanted heart: [place] heart Atrial flutter I48.92 Atrial flutter type: unspecified (HFpEF) heart failure with preserved ejection fraction I50.32 Heart failure chronicity: chronic (2) Coronary artery disease Associated angina: unspecified whether angina present Coronary Disease-Assoc iated Artery/Lesion type: unspecified vessel or lesion type [place] vs. transplanted heart: [place] heart Qualified Code(s): I25.10 - Atherosclerotic heart disease of [place] coronary artery without angina pectoris (3) Atrial flutter Atrial flutter type: unspecified Qualified Code(s): I48.92 - Unspecified atrial flutter (4) (HFpEF) heart failure with preserved ejection fraction Heart failure chronicity: chronic Qualified Code(s): I50.32 - Chronic diastolic (congestive) heart failure
[2025-02-21 19:08] VITALS: BP 111/61; PULSE 66; TEMP 98.1; O2SAT 97
--- NOTE | 2025-02-21 22:28 | Death Pronouncement Note ---
Date of Service February 21, 2025 Pronouncement Note Admission Date February 19, 2025 Date and Time of Date of : 02/21/25 Time of : 22:03 Preliminary Cause of (1) Diverticulitis of colon with perforation: Additional Data Confirmation of : no pulse, no respirations, no heart sounds and pupils fixed and dilated Pronouncement Performed By: Attending Physician Family: attempt made (Left voicemail with his ) Attending physician: Raquel Santos MD Was code activated?: No (Patient DNR/DNI) Coding Level of Care Code None Diagnoses Diverticulitis of colon with perforation K57.20
--- NOTE | 2025-02-23 08:32 | Discharge Summary ---
Discharge Summary Date of Service February 23, 2025 Principal Dx & Hospital Course #1 = Principal Diagnosis (1) Diverticulitis of colon with perforation: Plan 89 yo M with PMHx of HTN, HLD, Hypothyrodism, CAD, HFpEF, AFlutter presents to the ER with shortness of breath, abdominal pain and fevers. #Diverticulitis with colon perforation - cont IV Zosyn - on clear liquid diet - Gen surgery on board, recs conservative management #Ecoli bacteremia - 10/24 bottles positive - rpt cultures pending - cont zosyn (started on 02/20) #Chronic HFpEF - Monitor closely for fluid overload with IV fluids - Hold furosemide, if remains stable, resume furosemide on 02/22 #Atrial flutter/fibrillation / elevated troponin - Persistent / permanent - Per last cardiology note EKGs consistent with flutter however intracardiac electrograms were consistent with an atrial fibrillation, rate controlled not on AV genesis blocking agents - Holding Eliquis in case of need for surgery - No chest pain to suggest ACS, elevated troponin consistent with demand- ischemia, repeat level with AM labs #HLD - cont atorvastatin #Hypothyroidism - cont levothyroxine #BPH - cont tamsulosin and finasteride VTE Prophylaxis - Eliquis on hold in case for need for surgery, SCDs Disposition - pending clinical improvement Admission HPI Per Admitting Provider Dm Ferreira is an 89 year old male who presents to the ER with fevers and abdominal pain. He reports 3 months of ambulatory dysfunction, shortness of breath on exertion and intermittent lower abdominal pain during this time. For the last week the abdominal pain has been more constant, no radiation, current severity 5-6/10 but at worst 10/10. Associated decreased appetite and hardly ate anything with decreased bowel movements. Also associated fever highest 103.1 degrees Farenheit. He reports not taking his lasix for the last 3 days in addition as he has been travelling and returned from [facility] yesterday. No chest pain. He reports having a heart attack in 1978 but medically managed and per last cardiology note he has nonobstructive coronary disease in the LAD and left main with chronic total occlusion of the right coronary artery. Of note he had planned to have atrial fibrillation/flutter ablation at [facility] next week. In the ER CT abdomen/pelvis was concerning for diverticulitis with colon perforation. He was seen by general surgery with plans to conservatively treat currently. He last took Eliquis yesterday around 9pm. I updated his over the phone. Discharge Plan Discharge Items Patient Disposition: Other Date/Time: 02/21/25 22:03 Hospital Stay Data Consultations 02/19/25 20:28 ED Decision to Admit Stat Diagnostic Imagining Performed 02/19/25 16:51 CT abd pelvis IV con only Stat Coding Diagnoses Diverticulitis of colon with perforation K57.20
== END 2025-02-21 22:03 | disposition expired | DRG 392 ==
LOC: ED 15:23 → SUATTDRO 21:43 → 4W 21:43 → 2S 02-21 16:31